=== PATIENT | female | born 1955 | race Caucasian/White ===

== ENCOUNTER 2024-01-17 15:37 | Outpatient (CLI) | payer MEDICARE, OTHER, SELFPAY ==
--- NOTE | ~2024-01-17 | CT_ITS ---
CT Scan of the Chest without Contrast: Clinical Indication: Lung cancer screening, nicotine dependence Technique: Contiguous sections were acquired throughout the chest without intravenous contrast. Dose reduction technique was used on this scan by utilizing automated exposure control and iterative recon struction technique. The dose-length product (DLP) was 269.35 mGy-cm. Findings: There is no evidence of any significant mediastinal, hilar or axillary lymphadenopathy. Aberrant righ t subclavian artery noted. There is no evidence of pleural or pericardial effusion. There is complete middle lobe atelectasis. No pulmonary nodule evident. There is scarring at the ling josue. Images through the upper abdomen reveal no abnormalities. There is advanced degenerative spondylosis throughout the thoracic spine. Impression: Lung RADS 2-S: Benign appearance. 12 month follow-up CT advised. Please note there is complete right middle lobe atelectasis. This may be chronic in nature, however s mall endobronchial or other obstructing lesion cannot be completely excluded. Correlate clinically. C omparison with any prior exams would be useful to assess for chronic atelectasis. Otherwise, bronchos copy could be considered, as indicated. Reviewed, dictated and finalized at location . Impression: Lung RADS 2-S: Benign appearance. 12 month follow-up CT advised. Please note there is complete right middle lobe atelectasis. This may be chroni c in nature, however small endobronchial or other obstructing lesion cannot be completely excluded. Correlate clinically. Comparison with any prior exams woul d be useful to assess for chronic atelectasis. Otherwise, bronchoscopy could be considered, as indicated.
== END 2024-01-17 15:38 ==
LOC: MICIMG 15:39
PROVIDERS: PCP Internal Medicine; Visit Provider Internal Medicine
DX: Z12.2 Encounter for screening for malignant neoplasm of respiratory organs (principal); Z87.891 Personal history of nicotine dependence
CPT/HCPCS: 71271

== ENCOUNTER 2024-03-12 09:53 | Outpatient (CLI) | payer MEDICARE, OTHER, SELFPAY ==
--- NOTE | ~2024-03-12 | XR_ITS ---
XR chest 2V 03/12/2024 11:23 Indication: Atelectasis Procedure: PA and lateral views of chest Comparison: No prior studies for comparison. Findings: Small pleural effusions. Bibasilar airspace disease. Heart size normal. No edema or pneumot horax. Impression: 1: Bibasilar airspace disease may represent atelectasis or pneumonia. 2: Small pleural effusions. Reviewed, dictated and finalized at location B. Impression: 1: Bibasilar airspace disease may represent atelectasis or pneumonia. 2: Small pleural effusions.
--- NOTE | 2024-03-12 13:42 | WPDSIXMINUTE ---
Six Minute Walk Procedure Procedure Performed Pulmonary Stress Test (6 min walk) Six Minute Walk Six Minute Walk: This is a 6 minute walk test. The test was performed and interpreted in accordance with the 2014 ERS/ATS task force guidelines. Of note, patient used to personal wheeled walker. Findings: The patient's resting room air oxygen saturation measured by pulse oximetry was 91% and heart rate was 98 bpm. Patient ambulated for 137 meters and oxygen saturation remained 90 to 92%. Heart rate at the end of the study was 122 bpm. The patient did not qualify for supplemental oxygen at rest or with ambulation. There are no prior studies for comparison.
--- NOTE | 2024-03-12 13:44 | WPDPFTINT ---
PFT Procedure Performed PFT Procedure Performed Spirometry with Pre/Post Bronchodilator Plethysmography (Lung Vol) Diffusing Cap (DLCO) Flow Vol Loop PFT Interpretation This is a pulmonary function test with pre and post-bronchodilator spirometry, plethysmography and diffusing capacity. The test was performed and results interpreted in accordance with the 2019 and 2005 ATS/ERS Task Force guidelines respectively using the Global Lung Function Initiative-2012 reference equations. Patient demonstrated good effort and cooperation. Reproducibility criteria were met. The quality of the pre bronchodilator spirometry maneuver was Grade A and post bronchodilator spirometry maneuver was Grade A. Findings: Spirometry: The contour the expiratory flow tracing has a sawtooth or oscillating pattern. There is decreased maximal expiratory airflow at all lung volumes with concave expiratory flow tracing. The contour the inspiratory flow tracing is normal. The pre bronchodilator FVC is 1.91 L, 67% predicted. The pre bronchodilator FEV1 is 1.08 L, 49% predicted. The pre bronchodilator FEV1: FVC ratio is 57%. The post bronchodilator FVC is 1.96 L, representing a 3% increase. The post bronchodilator FEV1 is 1.06 L, representing a 2% decrease. The post bronchodilator FEV1: FVC ratio is 54%. Plethysmography: The total lung capacity is 5.00 L, 102% predicted. The functional residual capacity is 3.47 L, 125% predicted. The residual volume is 3.10 L, 149% predicted. The residual volume: Total lung capacity ratio 62%. Diffusing capacity: The diffusing capacity unadjusted for hemoglobin and carboxyhemoglobin is 12.3, 60% predicted. The diffusing capacity adjusted for alveolar volume is 3.59, 82% predicted. Impression: The contour the expiratory flow tracing demonstrates a reproducible sawtooth or oscillating pattern. This is usually generated by air flow disturbances in the upper airway are from tremors of the respiratory muscles. This has been associated with sleep apnea, obesity, snorers without obstructive sleep apnea, upper airway injury, upper airway stenosis, tracheobronchomalacia, neuromuscular disorders with bulbar involvement, burn injury of the upper airway, diaphragmatic myoclonus, and herpes zoster of abdominal muscles. Clinical correlation is recommended. There is a severe obstructive abnormality. There is no significant improvement after inhaling a single dose of albuterol. The increase in residual volume to total lung volume ratio is consistent with hyperinflation from an obstructive abnormality. The diffusing capacity unadjusted for hemoglobin and carboxyhemoglobin is moderately decreased and normalizes when adjusted for alveolar volume. There are no prior studies for comparison
== END 2024-03-12 09:54 | disposition home or self-care (01) ==
LOC: ANHPFT 09:53
PROVIDERS: PCP Internal Medicine; Visit Provider Internal Medicine Pulmonary Disease
DX: J98.11 Atelectasis (principal); J84.89 Other specified interstitial pulmonary diseases; J90 Pleural effusion, not elsewhere classified; Z87.09 Personal history of other diseases of the respiratory system; Z87.891 Personal history of nicotine dependence
CPT/HCPCS: 71046; 94060; 94618; 94726; 94729

== ENCOUNTER 2024-07-09 08:13 | Outpatient (CLI) | payer MEDICARE, OTHER, SELFPAY ==
--- OUTSIDE RECORDS SUMMARY | 2024-06-20 04:23 | XMS_ITS | Encounter Summary ---
Author Organization [facility] Address [address] [place] [address] Phone Care Team Providers Care Correspondence Coordinator Name Role Phone Eugene Moore MD Primary Care Provider [phone] Reason for Referral * MRI/CAT/PET Scan (Routine) - Closed Specialty Diagnoses / Procedures Referred By Kenneth gómez Referred To Contact Radiology Diagnoses Meningioma (HCC) Procedures MRI Brain W WO Contrast Shania Mcmullen NP Phone: tel: fax: [address] [address] Referral ID Status Reason Start Date Expiration Date Visits Re quested Visits Authorized [id number] Closed 04/19/2023 06/17/2023 1 1 Encounter Details Date Type Department Care Team (Late st Contact Info) Description 04/14/2023 Orders Only [facility] Neurosurgery [address] [facility] Advanced [facility] 6th [place] [address] [place] [id number] Shania Mcmullen NP [address] [facility] [address] [place] [id number] Meningioma (HCC) (Primary Dx) Social History Tobacco Use Types Packs/Day Years Used Date Smoking Tobacco: Every Day Smokeless Tobacco: Never Alcohol Use Standard Drinks/Week Comments Yes 4 (1 standard drink = 0.6 oz pur e alcohol) Comments Unknown Sex and Gender Information Value Date Recorded Sex Assigned at Not on file Legal Sex Female 4:40 AM CHAIN REPAIRER Gender Identity Not on file Sexual Orientation Not on file documented as of this encounter Plan of Treatment Not on file documented as of this encounter Results * MRI Brain W WO Contrast (05/08/2023 5:28 PM CHAIN REPAIRER) Anatomical Region Laterality Modality Head and Neck N/A Magnetic Resonan ce 05/09/2023 8:40 AM CHAIN REPAIRER Impressions 05/09/2023 12:23 PM CHAIN REPAIRER Redemonstrated left frontal vertex, left frontal, and right parietal meningiomas are not significantly changed compared to prior examination when accounting for differences in technique. Dictated by: Adan Vega MD PHD The radiology attending physician has personally reviewed this study, and had reviewed and/or edited this written report and agrees with it. Electronically signed by: Tg Meyers M.D. Narrative 05/09/2023 12:23 PM CHAIN REPAIRER EXAMINATION: Magnetic resonance imaging (MRI) of the brain and brainstem without and with contrast HISTORY: 67-year-old woman history of meningioma, surveillance TECHNIQUE: Multiplanar multi-weighted MRI of the brain and brainstem was performed without and with intravenous contrast using the general brain protocol. Contrast information: 20 mL Gadoterate Meglumine COMPARISON: 08/16/2018, 08/18/2017 FINDINGS: Redemonstrated left frontal vertex lesion measuring 1.7 x 1.4 cm, left frontal lesion measuring approximately 1.5 x 1.2 cm, and right parietal lesions measuring up to 2.4 x 1.9 cm. ??Lesions are extra-axial and dural-based with contrast enhancement and associated susceptibility signal favored to represent calcifications. ??Findings are not significantly changed compared to prior examination when accounting for differences in technique. Scattered ill-defined FLAIR hyperintensities in the periventricular and subcortical white matter are nonspecific, likely on the basis of chronic small vessel ischemic change. The scalp and calvarium are normal. The superior sagittal sinus demonstrates normal venous flow. The corpus callosum is normal in shape and signal intensity. The posterior fossa is unremarkable. The pituitary and sella are normal. The brainstem and craniocervical junction are unremarkable. The susceptibility weighted sequences reveal no evidence of acute or chronic hemorrhage. The ventricles are normal in size and position without evidence of hydrocephalus. The paranasal sinuses are normal. The visualized portions of the mastoids are unremarkable. The orbits appear normal. Normal flow voids are demonstrated in the carotid arteries and basilar artery. Procedure Note Tg Meyers MD - 05/09/2023 EXAMINATION: Magnetic resonance imaging (MRI) of the brain and brainstem without and with contrast HISTORY: 67-year-old woman history of meningioma, surveillance TECHNIQUE: Multiplanar multi-weighted MRI of the brain and brainstem was performed without and with intravenous contrast using the general brain protocol. Contrast information: 20 mL Gadoterate Meglumine COMPARISON: 08/16/2018, 08/18/2017 FINDINGS: Redemonstrated left frontal vertex lesion measuring 1.7 x 1.4 cm, left frontal lesion measuring approximately 1.5 x 1.2 cm, and right parietal lesions measuring up to 2.4 x 1.9 cm. Lesions are extra-axial and dural-based with contrast enhancement and associated susceptibility signal favored to represent calcifications. Findings are not significantly changed compared to prior examination when accounting for differences in technique. Scattered ill-defined FLAIR hyperintensities in the periventricular and subcortical white matter are nonspecific, likely on the basis of chronic small vessel ischemic change. The scalp and calvarium are normal. The superior sagittal sinus demonstrates normal venous flow. The corpus callosum is normal in shape and signal intensity. The posterior fossa is unremarkable. The pituitary and sella are normal. The brainstem and craniocervical junction are unremarkable. The susceptibility weighted sequences reveal no evidence of acute or chronic hemorrhage. The ventricles are normal in size and position without evidence of hydrocephalus. The paranasal sinuses are normal. The visualized portions of the mastoids are unremarkable. The orbits appear normal. Normal flow voids are demonstrated in the carotid arteries and basilar artery. IMPRESSION: Redemonstrated left frontal vertex, left frontal, and right parietal meningiomas are not significantly changed compared to prior examination when accounting for differences in technique. Dictated by: Adan Vega MD PHD The radiology attending physician has personally reviewed this study, and had reviewed and/or edited this written report and agrees with it. Electronically signed by: Tg Meyers M.D. Shania Mcmullen NP IM MRI PROCEDURES Final Resu lt documented in this encounter Visit Diagnoses Diagnosis Meningioma (HCC)- Primary Benign neoplasm of cerebral meninges Meningioma (HCC) Benign neoplasm of cerebral meninges documented in this encounter Care Teams Correspondence Coordinator Relationship Specialty Start Date End Date Eugene Moore MD PCP - General 09/08/16 documented as of this encounter
--- OUTSIDE RECORDS SUMMARY | 2024-06-20 04:23 | XMS_ITS | Referral Summary ---
Author Organization [facility] Address [address] [place] [address] Care Team Providers Care Pulping Machine Operator Name Role Phone Eugene Moore MD Primary Care Provider [phone] Allergies No known active allergies Medications aspirin 81 mg tablet Active gabapentin ER (GRALISE) 300 mg tablet extended release 24 hr Active cetirizine (ZyrTEC) 10 mg chewable tablet Acti ve albuterol HFA (VENTOLIN HFA) 90 mcg/actuation inhaler Active amLODIPine (NORVASC) 10 mg tablet Active baclofen (LIORESAL) 20 mg tablet Active citalopram (CeleXA) 10 mg tablet Active losartan-hydroch lorothiazide (HYZAAR) 100-25 mg per tablet Active montelukast (SINGULAIR) 10 mg tablet Active nabumetone (RELAFEN) 750 mg tablet Active simvastatin (ZOCOR) 40 mg tablet Active ergocalciferol, vitamin D2, (VITAMIN D2 ORAL) Take by mouth . Active Active Problems Problem Noted Date Diagnosed Date Meningioma 01/08/2014 Social History Tobacco Use Types Packs/Day Years Used Date Smoking Tobacco: Every Day Smokeless Tobacco: Never Tobacco Cessation:Counseling Given: Yes Alcohol Use Standard Drinks/Week Comments Yes 4 (1 standard drink = 0.6 oz pur e alcohol) Comments Unknown Sex and Gender Information Value Date Recorded Sex Assigned at Not on file Legal Sex Female 4:40 AM CURTAIN HEMMER AUTOMATIC Gender Identity Not on file Sexual Orientation Not on file Last Filed Vital Signs Vital Sign Reading Time Taken Comments Blood Pressure 135/90 08/16/2018 10:43 AM CURTAIN HEMMER AUTOMATIC Pulse 78 08/16/2018 10:43 AM CURTAIN HEMMER AUTOMATIC Temperature - - Respiratory Rate - - Oxygen Saturation - - Inhaled Oxygen Concentration - - Weight 140.6 kg (310 lb) 08/16/2018 10:43 AM CURTAIN HEMMER AUTOMATIC Height 160 cm (5' 3 ) 08/16/2018 10:43 AM CURTAIN HEMMER AUTOMATIC Body Mass Index 54.91 08/16/2018 10:43 AM CURTAIN HEMMER AUTOMATIC Plan of Treatment Not on file Insurance MEDICARE [facility] [employer]2 [facility] MEDICARE [facility] Care Teams Pulping Machine Operator Relationship Specialty Start Date End Date Eugene Moore MD PCP - General 09/08/16
--- OUTSIDE RECORDS SUMMARY | 2024-06-20 04:23 | XMS_ITS | CONTINUITY OF CARE DOCUMENT ---
Author Name faina eisenberg Address Unknown Organization [facility] Address [address] [facility] [place] [address] Phone [phone] Care Team Providers Care Crankshaft Grinder Name Role Phone Antonio DIAS, Jm Jacob Unavailable [phone] MICHAEL RAND MD Unavailable [phone] MICHAEL RAND MD Unavailable [phone] INSURANCE PROVIDERS Payer name Policy type / Coverage type [employer] red constitution party ID [facility] [id number]
--- OUTSIDE RECORDS SUMMARY | 2024-06-20 04:23 | XMS_ITS | Encounter Summary ---
Author Organization [facility] Address [address] [place] [address] Phone Care Team Providers Care Personal Banker Name Role Phone Eugene Moore MD Primary Care Provider [phone] Encounter Details Date Type Department Care Team (Late st Contact Info) Description 05/12/2023 Telephone [facility] Neurosurgery [address] [facility] Advanced [facility] 6th [place] [address] [place] [phone] Shania Mcmullne NP [address] [address] Social History Tobacco Use Types Packs/Day Years Used Date Smoking Tobacco: Every Day Smokeless Tobacco: Never Alcohol Use Standard Drinks/Week Comments Yes 4 (1 standard drink = 0.6 oz pur e alcohol) Comments Unknown Sex and Gender Information Value Date Recorded Sex Assigned at Not on file Legal Sex Female 4:40 AM MANAGER APPLE Gender Identity Not on file Sexual Orientation Not on file documented as of this encounter Miscellaneous Notes * Telephone Encounter - Shania Mcmullen NP - 05/12/2023 9:06 AM CST Pt needs an MRI and apt in 3 years Thanks E GER APPLE documented in this encounter Plan of Treatment Not on file documented as of this encounter Visit Diagnoses Not on filedocumented in this encounter Care Teams Personal Banker Relationship Specialty Start Date End Date Eugene Moore MD PCP - General 09/08/16 documented as of this encounter
--- OUTSIDE RECORDS SUMMARY | 2024-06-20 04:23 | XMS_ITS | Encounter Summary ---
Author Organization [facility] Address [address] [place] [address] Phone Care Team Providers Care International Tax Manager Name Role Phone Eugene Moore MD Primary Care Provider [phone] Encounter Details Date Type Department Care Team (Late st Contact Info) Description 04/13/2023 Telephone [facility] Scheduling [address] [place] [address] Marce Khoury Social History Tobacco Use Types Packs/Day Years Used Date Smoking Tobacco: Every Day Smokeless Tobacco: Never Alcohol Use Standard Drinks/Week Comments Yes 4 (1 standard drink = 0.6 oz pur e alcohol) Comments Unknown Sex and Gender Information Value Date Recorded Sex Assigned at Not on file Legal Sex Female 4:40 AM HI RANGER OPERATOR Gender Identity Not on file Sexual Orientation Not on file documented as of this encounter Miscellaneous Notes * Telephone Encounter - Taryn Patel - 04/19/2023 11:56 AM CST Reason for visit: Return Pt phone call Date: 05/12/2023 Time: 08:45am Location: [facility] Provider WATER QUALITY MANAGER - Shania Mcmullen Routed: Directly to WATER QUALITY MANAGER RANGER OPERATOR * Telephone Encounter - Shania Mcmullen NP - 04/14/2023 10:27 AM CDT MRI in Thanks E * Telephone Encounter - Taryn Patel - 04/13/2023 2:32 PM CDT Patient would like visit, could an imaging order be put in for patient please? documented in this encounter Plan of Treatment Not on file documented as of this encounter Visit Diagnoses Not on filedocumented in this encounter Care Teams International Tax Manager Relationship Specialty Start Date End Date Eugene Moore MD PCP - General 09/08/16 documented as of this encounter
--- OUTSIDE RECORDS SUMMARY | 2024-06-20 04:23 | XMS_ITS | Encounter Summary ---
Author Organization [facility] Address [address] [place] [address] Phone Care Team Providers Care Pipe Wrapping Machine Operator Name Role Phone Eugene Moore MD Primary Care Provider [phone] Encounter Details Date Type Department Care Team (Late st Contact Info) Description 05/12/2023 8:45 AM MIDDLE SCHOOL HUMANITIES TEACHER Telemedicine [facility] Neurosurgery [address] [facility] Advanced [facility] 6th [place] [address] [place] [address] Shania Mcmullen NP [address] [address] Meningioma (HCC) (Primary Dx) Social History Tobacco Use Types Packs/Day Years Used Date Smoking Tobacco: Every Day Smokeless Tobacco: Never Alcohol Use Standard Drinks/Week Comments Yes 4 (1 standard drink = 0.6 oz pur e alcohol) Comments Unknown Sex and Gender Information Value Date Recorded Sex Assigned at Not on file Legal Sex Female 4:40 AM MIDDLE SCHOOL HUMANITIES TEACHER Gender Identity Not on file Sexual Orientation Not on file documented as of this encounter Progress Notes * Shania Mcmullen NP - 05/12/2023 8:45 AM CST RETURN VISIT Subjective HISTORY OF PRESENT ILLNESS Mikki Dalton is a 67 y.o. female with a history of meningiomas for which we have been monitoring her with interval MRI scan since December of 2013. Her appointment was done via telephone. She is overall doing well. No new headaches, no visual issues. She is having knee issues and some back pain. Uses walker to walk due to knee issues. Trying to retire in Jun 2023. Working on weight loss. No bowel or bladder issues. VITAL SIGNS There were no vitals taken for this visit. ALLERGIES She has No Known Allergies. MEDICATIONS Current Outpatient Medications: albuterol HFA (VENTOLIN HFA) 90 mcg/actuation inhaler, , Disp: , Rfl: amLODIPine (NORVASC) 10 mg tablet, , Disp: , Rfl: aspirin 81 mg tablet, , Disp: , Rfl: baclofen (LIORESAL) 20 mg tablet, , Disp: , Rfl: cetirizine (ZyrTEC) 10 mg chewable tablet, , Disp: , Rfl: citalopram (CeleXA) 10 mg tablet, , Disp: , Rfl: ergocalciferol, vitamin D2, (VITAMIN D2 ORAL), Take by mouth ., Disp: , Rfl: gabapentin ER (GRALISE) 300 mg tablet extended release 24 hr, , Disp: , Rfl: losartan-hydrochlorothiazide (HYZAAR) 100-25 mg per tablet, , Disp: , Rfl: montelukast (SINGULAIR) 10 mg tablet, , Disp: , Rfl: nabumetone (RELAFEN) 750 mg tablet, , Disp: , Rfl: simvastatin (ZOCOR) 40 mg tablet, , Disp: , Rfl: Objective REVIEW OF IMAGING EXAMINATION: Magnetic resonance imaging (MRI) of the [...] it. Electronically signed by: Tg Meyers M.D. Assessment/Plan PLAN Mikki Dalton is doing well. Her MRI is stable. I would like to see her back in 3 years with another MRI or sooner if any new issues or concerns. Shania Mcmullen NP This was a telemedicine visit with Mikki Dalton alone which took place via telephone . During thevisit, I was located at home and the patient was located home in the [facility]. The patient visitstarted at 09:00 and ended at 09:06. My total encounter time on 05/12/2023 was 15 minutes which was spent in the activities documented in the note. This includes time spent prior to the visit and after the visit in direct care of the patient. This time does not include time spent in any separately reportable services. The patient: has been informed that the visit may not be secure and acknowledged the information. After being given an opportunity to ask questions about and discuss this type of visit, they verballyconsented to proceeding with the telephone/video visit and understand that this service replaces anoffice visit. Cosigned by Ludwin Mclean MD at 05/12/2023 4:38 PM MIDDLE SCHOOL HUMANITIES TEACHER LE SCHOOL HUMANITIES TEACHER LE SCHOOL HUMANITIES TEACHER documented in this encounter Plan of Treatment Not on file documented as of this encounter Visit Diagnoses Diagnosis Meningioma (HCC)- Primary Benign neoplasm of cerebral meninges documented in this encounter Care Teams Pipe Wrapping Machine Operator Relationship Specialty Start Date End Date Eugene Moore MD PCP - General 09/08/16 documented as of this encounter
--- OUTSIDE RECORDS SUMMARY | 2024-06-20 04:23 | XMS_ITS | Data Portability ---
Author Organization [facility] [employer], Main Office Address [address] [place] [address] Assessment Encounter Date Assessment Date Assessment LastModified by Organization Details LastModified Time 01/16/2023 01/16/2023 Again told her to go as see the brain specialist as well so she can get her MRI and follow the meningioma. Otherwise blood work assessment plan and diagnosis assessment plan been discussed follow-up with me in 4 months continue current therapy [email or web address] Not available 01/17/2023 20:26:09 05/15/2023 05/15/2023 Will continue current therapy will follow-up in 4 months. Mammogram ordered [email or web address] Not available 05/15/2023 23:12:53 Plan of Treatment Reminders Order Date Submit Date Provider Last Modified By Organization Details Last Modified Time Details Appointments None recorded. Lab vitamin D, 25-hydrox y, total, serum 023 023 [email or web address] [facility] (Lab), [address] [place], [address], 4 11:01:55 HbA1c (hemoglob in A1c), blood 023 023 [email or web address] [facility] (Lab), [address] [place], [address], 4 11:01:55 CMP, serum or plasma 023 023 [email or web address] [facility] (Lab), [address] [place], [address], 3 18:15:52 CBC w/ auto diff 023 023 [email or web address] [facility] (Lab), [address] [place], [address], 3 18:02:51 lipid panel, serum 023 023 [email or web address] 25 [facility] (Lab), [address] [place], [address], 4 11:01:55 Referral None recorded. Procedures None recorded. Surgeries None recorded. Imaging None recorded. Medication Orders None recorded. Patient TargetsNo targets recorded. Patient InstructionsNo instructions recorded. Reason for Referral None Reported. Results Created Date Observation Date Name Description Value Unit Range Abnormal Flag Note LastModifiedBy Organization Detail LastModifiedTime 09/24/19 22 09/23/2021 COMPR EHENS CHRISTINA METAB OLIC PANEL sodium 136 mmol/ L 137-14 5 low Not Available [facility] (Lab) [address] [place], [address], 09/23/2021 14:37:51 09/24/19 22 09/23/2021 COMPR EHENS CHRISTINA METAB OLIC PANEL potassium 4.5 mmol/ L 3.5-5. 1 Not Available [facility] (Lab) [address] [place], [address], 09/23/2021 14:37:51 09/24/19 22 09/23/2021 COMPR EHENS CHRISTINA METAB OLIC PANEL chloride 102 mmol/ L 98-107 Not Available [facility] (Lab) [address] [place], [address], 09/23/2021 14:37:51 09/24/19 22 09/23/2021 COMPR EHENS CHRISTINA METAB OLIC PANEL carbon dioxide 25 mmol/ L 22-30 Not Available [facility] (Lab) [address] [place], [address], 09/23/2021 14:37:51 09/24/19 22 09/23/2021 COMPR EHENS CHRISTINA METAB OLIC PANEL agap 13.5 mmol/ L 14-22 low Not Available [facility] (Lab) [address] [place], [address], 09/23/2021 14:37:51 09/24/19 22 09/23/2021 COMPR EHENS CHRISTINA METAB OLIC PANEL glucose 126 mg/dL 70-99 high Not Available [facility] (Lab) [address] [place], [address], 09/23/2021 14:37:51 09/24/19 22 09/23/2021 COMPR EHENS CHRISTINA METAB OLIC PANEL BUN 15 mg/dL 8-19 Not Available [facility] (Lab) [address] [place], [address], 09/23/2021 14:37:51 09/24/19 22 09/23/2021 COMPR EHENS CHRISTINA METAB OLIC PANEL creatinine 0.57 mg/dL 0.66-1 .25 low Not Available [facility] (Lab) [address] [place], [address], 09/23/2021 14:37:51 09/24/19 22 09/23/2021 COMPR EHENS CHRISTINA METAB OLIC PANEL GFR >60 Refer ence Range : [place] ge GFR Healt hy Adult : >60 mL/mi n/1.7 3 m2 Chron ic Kidne y Disea se: 15-60 mL/mi n/1.7 3 m2 Kidne y Failu re: <15/m L/min /1.73 m2 www.n iddk. nih.g ov The MDRD study equat ion has not been valid ated in child jameel <18 years of age; pregn ant women ; the elder ly >85 years of age; or in some racia l or ethni c subgr oups, such as Hispa nics. Outsi de the valid ated bonita eters , estim ated GFR is less accur ate, requi ring clini donald judgm ent on a case- by-ca se basis . Clini donald inter preta tion for other races and ages must be made by the clini oscar. The MDRD study equat ion has not been valid ated for the evalu ation of serum creat inine relat ed to nutri caroline l statu s or medic ation usage . For perso ns <18 years of age, a pedia tric GFR calcu lator is avail able on the [facility] websi te: https :[email or web address] [email or web address] [email or web address] rg/pr ofess ional s/kdo qi/gf r_cal culat or Not Available [facility] (Lab) [address] [place], [address], 09/23/2021 14:37:51 09/24/19 22 09/23/2021 COMPR EHENS CHRISTINA METAB OLIC PANEL alkaline phosphatase 86 U/L 38-126 Not Available [facility] (Lab) [address] [place], [address], 09/23/2021 14:37:51 09/24/19 22 09/23/2021 COMPR EHENS CHRISTINA METAB OLIC PANEL alanine aminotransfe rase 14 U/L 0-35 Not Available [facility] (Lab) [address] [place], [address], 09/23/2021 14:37:51 09/24/19 22 09/23/2021 COMPR EHENS CHRISTINA METAB OLIC PANEL aspartate aminotransfe rase 18 U/L 15-37 Not Available [facility] (Lab) [address] [place], [address], 09/23/2021 14:37:51 09/24/19 22 09/23/2021 COMPR EHENS CHRISTINA METAB OLIC PANEL bilirubin, total 0.50 mg/dL 0.20-1 .30 Not Available [facility] (Lab) [address] [place], [address], 09/23/2021 14:37:51 09/24/19 22 09/23/2021 COMPR EHENS CHRISTINA METAB OLIC PANEL calcium 10.0 mg/dL 8.4-10 .2 Not Available [facility] (Lab) [address] [place], [address], 09/23/2021 14:37:51 09/24/19 22 09/23/2021 COMPR EHENS CHRISTINA METAB OLIC PANEL total protein 7.8 g/dL 6.3-8. 2 Not Available [facility] (Lab) [address] [place], [address], 09/23/2021 14:37:51 09/24/19 22 09/23/2021 COMPR EHENS CHRISTINA METAB OLIC PANEL albumin 4.4 g/dL 3.0-4. 4 Not Available [facility] (Lab) [address] [place], [address], 09/23/2021 14:37:51 09/24/19 22 09/23/2021 COMPR EHENS CHRISTINA METAB OLIC PANEL globulin 3.4 g/dL 2.6-4. 2 Not Available [facility] (Lab) [address] [place], [address], 09/23/2021 14:37:51 09/24/19 22 09/23/2021 COMPR EHENS CHRISTINA METAB OLIC PANEL A/G ratio 1.3 ratio 1.0-2. 0 Not Available [facility] (Lab) [address] [place], [address], 09/23/2021 14:37:51 09/24/19 22 09/23/2021 LIPID PANEL cholesterol 184 mg/dL 140-19 9 NIH CELESTINA NSUS RECOM MENDA TION FOR MAGO STERO L: ADULT CHILD LOW RISK: <200 <170 BORDE RLINE : <200- 239 ----- HIGH RISK: >240 >200 Not Available [facility] (Lab) [address] [place], [address], 09/23/2021 14:37:44 09/24/19 22 09/23/2021 LIPID PANEL triglyceride s 148 mg/dL 0-150 NIH CELESTINA NSUS REPOR T RECOM MENDA TION FOR TRIGL YCERI JOSE: ADULT CHILD LOW RISK: <150 ----- BODER LINE: 150-1 99 ----- HIGH RISK: >200 ----- Not Available [facility] (Lab) [address] [place], [address], 09/23/2021 14:37:44 09/24/19 22 09/23/2021 LIPID PANEL HDL cholesterol 63 mg/dL 40- Not Available [facility] (Lab) [address] [place], [address], 09/23/2021 14:37:44 09/24/19 22 09/23/2021 LIPID PANEL LDL cholesterol, calculated 91 mg/dL 0-130 NIH CELESTINA NSUS REPOR T RECOM MENDA TIONS FOR LDL: ADULT CHILD LOW RISK <130 <110 (OPTI MAL LDL) <100 ----- BORDE RLINE : 130-1 59 ----- HIGH RISK: >160 >130 A TRIGL YCERI DE RESUL T >400 INVAL IDATE S THE CALCU LATIO N FOR LDL FRACT IONAT ION - THE LDL RESUL T WILL NOT BE REPOR ADEN. Not Available [facility] (Lab) [address] [place], [address], 09/23/2021 14:37:44 09/24/19 22 09/23/2021 HEMOG LOBIN A1C HA1C 7.8 % 4.0-6. 0 high Diabe kecia Scree elli Crite bonnie: <5.7% Consi stent with absen ce of diabe kecia 5.7-6 .4% Consi stent with incre ased risk for diabe kecia (pred iabet es) >OR=6 .5% Consi stent with diabe kecia REFER ENCE: Diabe kecia Care 2016, 39(Raya ppl.1 ):s13 -s22 Not Available [facility] (Lab) [address] [place], [address], 09/23/2021 14:36:33 01/17/2001/16/2023 CBC/C OMPLE TE BLD COUNT W/DIF F white blood cells 5.2 x10'3 /uL 4.2-10 .8 Not Available [facility] (Lab) [address] [place], [address], 01/16/2023 18:01:15 01/17/20 23 01/16/2023 CBC/C OMPLE TE BLD COUNT W/DIF F red blood cells 4.43 x10'6 /uL 3.80-5 .20 Not Available [facility] (Lab) [address] [place], [address], 01/16/2023 18:01:15 01/17/20 23 01/16/2023 CBC/C OMPLE TE BLD COUNT W/DIF F hemoglobin 14.2 g/dL 12.0-1 5.6 Not Available [facility] (Lab) [address] [place], [address], 01/16/2023 18:01:15 01/17/2001/16/2023 CBC/C OMPLE TE BLD COUNT W/DIF F hematocrit 43.2 % 35.7-4 5.7 Not Available [facility] (Lab) [address] [place], [address], 01/16/2023 18:01:15 01/17/2001/16/2023 CBC/C OMPLE TE BLD COUNT W/DIF F mean red cell volume 97.5 fL 82.0-9 9.0 Not Available [facility] (Lab) [address] [place], [address], 01/16/2023 18:01:15 01/17/20 23 01/16/2023 CBC/C OMPLE TE BLD COUNT W/DIF F mean red cell hemoglobin 32.1 pg 27.0-3 3.0 Not Available [facility] (Lab) [address] [place], [address], 01/16/2023 18:01:15 01/17/20 23 01/16/2023 CBC/C OMPLE TE BLD COUNT W/DIF F mean RBC HGB concentratio n 32.9 g/dL 31.0-3 6.0 Not Available [facility] (Lab) [address] [place], [address], 01/16/2023 18:01:15 01/17/20 23 01/16/2023 CBC/C OMPLE TE BLD COUNT W/DIF F red cell distribution width 13.4 % 11.8-1 5.5 Not Available [facility] (Lab) [address] [place], [address], 01/16/2023 18:01:15 01/17/20 23 01/16/2023 CBC/C OMPLE TE BLD COUNT W/DIF F platelets 297 x10'3 /uL 150-40 0 Not Available [facility] (Lab) [address] [place], [address], 01/16/2023 18:01:15 01/17/20 23 01/16/2023 CBC/C OMPLE TE BLD COUNT W/DIF F mean platelet volume 10.5 fL 9.0-12 .4 Not Available [facility] (Lab) [address] [place], [address], 01/16/2023 18:01:15 01/17/20 23 01/16/2023 CBC/C OMPLE TE BLD COUNT W/DIF F neutrophils 56.0 % 39.0-7 2.0 Not Available [facility] (Lab) [address] [place], [address], 01/16/2023 18:01:15 01/17/20 23 01/16/2023 CBC/C OMPLE TE BLD COUNT W/DIF F lymphocytes 31.9 % 16.0-4 7.0 Not Available [facility] (Lab) [address] [place], [address], 01/16/2023 18:01:15 01/17/20 23 01/16/2023 CBC/C OMPLE TE BLD COUNT W/DIF F monocytes 7.3 % 5.0-12 .0 Not Available [facility] (Lab) [address] [place], [address], 01/16/2023 18:01:15 01/17/20 23 01/16/2023 CBC/C OMPLE TE BLD COUNT W/DIF F eosinophils 3.3 % 1.0-7. 0 Not Available [facility] (Lab) [address] [place], [address], 01/16/2023 18:01:15 01/17/2001/16/2023 CBC/C OMPLE TE BLD COUNT W/DIF F basophils 1.3 % 0.0-2. 0 Not Available [facility] (Lab) [address] [place], [address], 01/16/2023 18:01:15 01/17/20 23 01/16/2023 CBC/C OMPLE TE BLD COUNT W/DIF F immature granulocytes 0.2 % 0.00-0 .50 Not Available [facility] (Lab) [address] [place], [address], 01/16/2023 18:01:15 01/17/20 23 01/16/2023 CBC/C OMPLE TE BLD COUNT W/DIF F neutrophils, absolute count 2.93 x10'3 /uL 1.5-8. 0 Not Available [facility] (Lab) [address] [place], [address], 01/16/2023 18:01:15 01/17/20 23 01/16/2023 CBC/C OMPLE TE BLD COUNT W/DIF F lymphocytes, absolute count 1.67 x10'3 /uL 1.07-3 .43 Not Available [facility] (Lab) [address] [place], [address], 01/16/2023 18:01:15 01/17/20 23 01/16/2023 CBC/C OMPLE TE BLD COUNT W/DIF F monocytes, absolute count 0.38 x10'3 /uL 0.29-0 .99 Not Available [facility] (Lab) [address] [place], [address], 01/16/2023 18:01:15 01/17/2001/16/2023 CBC/C OMPLE TE BLD COUNT W/DIF F eosinophils, absolute count 0.17 x10'3 /uL 0.02-0 .53 Not Available [facility] (Lab) [address] [place], [address], 01/16/2023 18:01:15 01/17/20 23 01/16/2023 CBC/C OMPLE TE BLD COUNT W/DIF F basophils, absolute count 0.07 x10'3 /uL 0.01-0 .08 Not Available [facility] (Lab) [address] [place], [address], 01/16/2023 18:01:15 01/17/2001/16/2023 CBC/C OMPLE TE BLD COUNT W/DIF F immature granulocytes ,absolute 0.01 x10'3 /uL 0.00-0 .05 Not Available [facility] (Lab) [address] [place], [address], 01/16/2023 18:01:15 01/17/2001/16/2023 CBC/C OMPLE TE BLD COUNT W/DIF F nucleated red blood cells 0.0 % -0 Not Available [facility] (Lab) [address] [place], [address], 01/16/2023 18:01:15 01/17/20 23 01/16/2023 CBC/C OMPLE TE BLD COUNT W/DIF F NRBC# 0.00 x10'3 /uL Not Available [facility] (Lab) [address] [place], [address], 01/16/2023 18:01:15 01/17/20 23 01/16/2023 COMPR EHENS CHRISTINA METAB OLIC PANEL sodium 138 mmol/ L 137-14 5 Not Available [facility] (Lab) [address] [place], [address], 01/16/2023 18:15:52 01/17/20 23 01/16/2023 COMPR EHENS CHRISTINA METAB OLIC PANEL potassium 4.2 mmol/ L 3.5-5. 1 Not Available [facility] (Lab) [address] [place], [address], 01/16/2023 18:15:52 01/17/20 23 01/16/2023 COMPR EHENS CHRISTINA METAB OLIC PANEL chloride 101 mmol/ L 98-107 Not Available [facility] (Lab) [address] [place], [address], 01/16/2023 18:15:52 01/17/20 23 01/16/2023 COMPR EHENS CHRISTINA METAB OLIC PANEL carbon dioxide 27 mmol/ L 22-30 Not Available [facility] (Lab) [address] [place], [address], 01/16/2023 18:15:52 01/17/20 23 01/16/2023 COMPR EHENS CHRISTINA METAB OLIC PANEL anion gap 14.2 mmol/ L 14-22 Not Available [facility] (Lab) [address] [place], [address], 01/16/2023 18:15:52 01/17/20 23 01/16/2023 COMPR EHENS CHRISTINA METAB OLIC PANEL glucose 109 mg/dL 70-99 high Not Available [facility] (Lab) [address] [place], [address], 01/16/2023 18:15:52 01/17/20 23 01/16/2023 COMPR EHENS CHRISTINA METAB OLIC PANEL BUN 15 mg/dL 8-19 Not Available [facility] (Lab) [address] [place], [address], 01/16/2023 18:15:52 01/17/2001/16/2023 COMPR EHENS CHRISTINA METAB OLIC PANEL creatinine 0.57 mg/dL 0.66-1 .25 low Not Available [facility] (Lab) [address] [place], [address], 01/16/2023 18:15:52 01/17/20 23 01/16/2023 COMPR EHENS CHRISTINA METAB OLIC PANEL GFR >60 Refer ence Range : [place] ge GFR Healt hy Adult : >60 mL/mi n/1.7 3 m2 Chron ic Kidne y Disea se: 15-60 mL/mi n/1.7 3 m2 Kidne y Failu re: <15/m L/min /1.73 m2 www.n iddk. nih.g ov The MDRD study equat ion has not been valid ated in child jameel <18 years of age; pregn ant women ; the elder ly >85 years of age; or in some racia l or ethni c subgr oups, such as [facility] nics. Outsi de the valid ated bonita eters , estim ated GFR is less accur ate, requi ring clini donald judgm ent on a case- by-ca se basis . Clini donald inter preta tion for other races and ages must be made by the clini oscar. The MDRD study equat ion has not been valid ated for the evalu ation of serum creat inine relat ed to nutri caroline l statu s or medic ation usage . For perso ns <18 years of age, a pedia tric GFR calcu lator is avail able on the [facility] websi te: https :[email or web address] wsheila [email or web address] rg/pr ofess ional s/kdo qi/gf r_cal culat or Not Available [facility] (Lab) [address] [place], [address], 01/16/2023 18:15:52 01/17/20 23 01/16/2023 COMPR EHENS CHRISTINA METAB OLIC PANEL alkaline phosphatase 101 U/L 38-126 Not Available [facility] (Lab) [address] [place], [address], 01/16/2023 18:15:52 01/17/20 23 01/16/2023 COMPR EHENS CHRISTINA METAB OLIC PANEL alanine aminotransfe rase 23 U/L 0-35 Not Available [facility] (Lab) [address] [place], [address], 01/16/2023 18:15:52 01/17/20 23 01/16/2023 COMPR EHENS CHRISTINA METAB OLIC PANEL aspartate aminotransfe rase 24 U/L 15-37 Not Available [facility] (Lab) [address] [place], [address], 01/16/2023 18:15:52 01/17/20 23 01/16/2023 COMPR EHENS CHRISTINA METAB OLIC PANEL bilirubin, total 0.50 mg/dL 0.20-1 .30 Not Available [facility] (Lab) [address] [place], [address], 01/16/2023 18:15:52 01/17/20 23 01/16/2023 COMPR EHENS CHRISTINA METAB OLIC PANEL calcium 9.8 mg/dL 8.4-10 .2 Not Available [facility] (Lab) [address] [place], [address], 01/16/2023 18:15:52 01/17/20 23 01/16/2023 COMPR EHENS CHRISTINA METAB OLIC PANEL total protein 8.5 g/dL 6.3-8. 2 high Not Available [facility] (Lab) [address] [place], [address], 01/16/2023 18:15:52 01/17/20 23 01/16/2023 COMPR EHENS CHRISTINA METAB OLIC PANEL albumin 4.9 g/dL 3.0-4. 4 high Not Available [facility] (Lab) [address] [place], [address], 01/16/2023 18:15:52 01/17/20 23 01/16/2023 COMPR EHENS CHRISTINA METAB OLIC PANEL globulin 3.6 g/dL 2.6-4. 2 Not Available [facility] (Lab) [address] [place], [address], 01/16/2023 18:15:52 01/17/20 23 01/16/2023 COMPR EHENS CHRISTINA METAB OLIC PANEL A/G ratio 1.4 ratio 1.0-2. 0 Not Available [facility] (Lab) [address] [place], [address], 01/16/2023 18:15:52 01/17/2001/16/2023 VITAM IN D 25-HY DROXY vd25oh 39.1 NG/mL 30-100 Vitam in D Statu s: Defic ient: <20 ng/mL Insuf ficie nt: 20-29 ng/mL Suffi cient : 30-10 0 ng/mL Not Available [facility] (Lab) [address] [place], [address], 01/16/2023 18:59:24 01/17/2001/16/2023 HEMOG LOBIN A1C HA1C 6.9 % 4.0-6. 0 high Diabe kecia Scree elli Crite bonnie: <5.7% Consi stent with absen ce of diabe kecia 5.7-6 .4% Consi stent with incre ased risk for diabe kecia (pred iabet es) >OR=6 .5% Consi stent with diabe kecia REFER ENCE: Diabe kecia Care 2016, 39(Raya ppl.1 ):s13 -s22 Not Available [facility] ([facility]) [address] [place], [address], 01/16/2023 20:04:48 10/19/19 22 10/18/2021 DEXA, axial skele ton [facility] [address] [place] [address] [phone] Patien t Name: MELODIE DALTON Access ion #: [id number] Sex: F : 1955 8 Locati on: RAD Attend ing Physic jerrell: STEPHANIE MOORE Orderi ng Physic jerrell: STEPHANIE MOORE Exam Date: 10/19/19 10:32 AM Exam Name: XR DEXA-H IPS PELVIS SPINE Admitt ing Diagno sis(es ): RADIOL OGY REPORT - FINAL EXAM: XR DEXA-H IPS PELVIS SPINE HISTOR Y: MENOPA USAL 66-yea r-old female with osteop orosis screen ing. COMPAR YUSEF: DEXA scan dated 2014. TECHNI QUE: Dual energy x-ray of absorp tion examin ation of the bilate ral hips and lumbar spine in AP projec tion was perfor med. FINDIN GS: Lumbar Spine (L1-L4 ): The mean bone minera l densit y is 1.966 g/cm2 hydrox yapati te, correl ating with a T-scor e of 6.2. BMD of the lumbar spine is increa sed 9.3% since the prior study. Bilate ral hips: The mean bone minera l densit y is 1.317 g/cm2 calciu m Page 1 [facility] 2 [facility] t Name: MELODIE DALTON Access ion #: [id number] Sex: F : 1955 7 Exam Date: 10/19/19 10:32 AM Exam Name: XR DEXA-H IPS PELVIS SPINE Admitt ing Diagno sis(es ): hydrox yapati te, correl ating with a T-scor e of 2.5. BMD of the hips is decrea sed 10% since the prior study. IMPRES SINGH: 1. The patien t's lumbar spine T-scor e is consis tent with normal bone minera l densit y. It should be noted that the BMD of the lumbar spine is artifa ctuall y increa sed by degene rative disc diseas e. 2. The patien t's bilate ral hip T-scor e is consis tent with normal bone minera l densit y. Accord ing to the [employer]i zation , T-scor e values greate r than -1.0 are normal , values betwee n -1.0 and -2.5 are catego rized as osteop enia, T-scor e of -2.5 or more are catego rized as osteop orosis . Create d and electr onical ly signed by: Devin benoit MD Signed Date: 10/19/19 11:32 AM (CT) Dictat ed by: Devin benoit MD (CT) (CT) Page 2 of 2 [id number] [facility] (Imaging) [address] [place], [address], 08/10/2022 05:05:08 10/19/19 22 10/18/2021 scree elli breas t irina, bilat [facility] [address] [place] [address] Patining t Name: MELODIE DALTON Access ion #: [id number] Sex: F : 1955 7 Locati on: RAD Attend ing Physic jerrell: STEPHANIE MOORE Orderi ng Physic jerrell: STEPHANIE MOORE Exam Date: 10/19/19 10:32 AM Exam Name: MG SCRN BREAST IRINA BILAT Admitt ing Diagno sis(es ): MAMMOG CHUCK REPORT - FINAL EXAM: MG GENTILE BREAST IRINA BILAT HISTOR Y: SCREEN ING MAMMOG CRISTY 66-yea r-old female with no curren t breast compla ints. The jacqui gómez has a family histor y of breast cancer in her mother at age 6060 years old. COMPAR YUSEF: 2019, 2017 TECHNI QUE: Bilate ral CC and MLO views of the breast s were perfor med. Digita l Mammog chuck images were obtain ed. CAD (compu ter assist ed detect ion) was utiliz ed. 3D Digita l breast tomosy nthesi s was perfor med and used in the interp retati on of images . FINDIN GS: The breast s are almost entire ly fatty. Page 1 of 2 [facility] Jacqui gómez Name: MELODIE DALTON Access ion #: [id number] Sex: F : 1955 7 Exam Date: 10/19/19 10:32 AM Exam Name: MG GENTILE BREAST IRINA BILAT Admitt ing Diagno sis(es ): No masses , asymme tries, suspic ious calcif icatio ns, or dinorah ectura l distor tion are seen. IMPRES SINGH: BIRADS 1: Assess ment comple te. Negati ve. Recomm end annual screen ing mammog chuck. Accord ing to the [employer], yearly mammog neha are recomm ended starti ng at age 40 and contin uing as long as the woman is in good health . Clinic al Breast Exam should be part of the period health exam-a bout every 3 years for women in their 20s and 30s and every year for women 40 and over. Breast self-e xam is an option for women in their 20s. Any breast change noted on the breast self-e xam she would be report ed prompt ly to the [facility]. A negati ve mammog chuck report should not discou rage follow -up or biopsy of a clinic ally signif icant findin g and/or abnorm ality. Dense breast tissue may obscur e small neopla sms. This jacqui gómez has been entere d into a mammog chuck remind er system with a target date for her next mammog cristy. Create d and electr onical ly signed by: Devin benoit MD Signed Date: 10/19/19 11:33 AM (CT) Dictat ed by: Devin benoit MD (CT) (CT) Page 2 of 2 [id number] [facility] (Imaging) [address] [place], [address], 08/10/2022 05:05:08 06/09/20 23 06/09/2023 chad mendez t irina, bilat [facility] [address] [place] [address] Jacqui gómez Name: MELODIE DALTON Access ion #: [id number] Sex: F : 1955 6 Dictat ed By: Michelle Small Attend ing Physic jerrell: STEPHANIE MOORE Orderi ng Physic jerrell: STEPHANIE MOORE Exam Date: 2022 12:36 PM Exam Name: MG SCRN BREAST IRINA BILAT Admitt ing Diagno sis(es ): SCREEN ING MAMMOG CRISTY WITH TOMOSY NTHESI S: REASON FOR EXAM: screen ing mammog cristy COMPAR YUSEF: 10/19/19; 2019 TECHNI QUE: Bilate ral CC and MLO views obtain ed. Images were obtain ed using a Digita l [employer] nthesi s Unit. Standa rd 2D and 3D Tomosy nthesi s images were review ed. FINDIN GS: BREAST COMPOS ITION: The bilate ral breast s are almost entire ly fatty. In the right breast , no asymme trical parenc hymal patter n, dinorah ectura l distor tion, pleomo rphic microc alcifi cation s or masses . In the left breast , no asymme trical parenc hymal patter n, dinorah ectura l distor tion, pleomo rphic microc alcifi cation s or masses . IMPRES SINGH: No findin gs of malign rosalina. Recomm end annual mammog cristy. BIRADS : 2 - Benign Electr onical ly Signed by: Michelle Small at 2022 15:12: 39 PM Page 1 [email or web address] [facility] (Imaging) [address] [facility] [facility], [place], [address], 06/16/2023 14:53:31 01/18/20 24 01/17/2024 LDCT, chest , for lung cance r chad calloway No observ ation record ed. [email or web address] [facility] [address] [address], [place], [address], 02/22/2024 15:47:30 Result Notes None recorded. Problems Name Problem SNOMED Code Status Onset Date Resolution Date Notes Provider Name and Address Organization Details Recorded Time Mammograp hy abnormal [id number] Completed Not Available [facility] 3 04:54:02 Asthma 230212856 Active Not Available [facility] 4 05:46:31 Sciatica 17254518 Completed Not Available [facility] 3 04:54:02 Morbid obesity 808882988 Active 2021 Not Available [facility] 4 05:46:31 Pure hyperchol esterolem ia 379145161 Active Not Available [facility] 4 05:46:31 Low back pain 029101630 Active Not Available [facility] 4 05:46:31 Intracran ial meningiom a 731281150 Active Not Available [facility] 4 05:46:31 Type 2 diabetes mellitus without complicat ion 917217692 Active Not Available [facility] 4 05:46:31 Vitamin D deficienc y 79953623 Active Not Available [facility] 4 05:46:31 Diverticu lar disease of colon 286797973 Active Not Available [facility] 4 05:46:31 Dizziness 124382893 Completed Not Available [facility] 3 04:54:03 Magnetic resonance imaging of brain abnormal 862099832 Active Not Available [facility] 4 05:46:31 Pain of right knee joint 36455475275 4100 Active 2021 Not Available [facility] 4 05:46:31 Anxiety 57103094 Active 2018 Not Available [facility] 4 05:46:31 Upper respirato ry infection 75581729 Completed Not Available [facility] 3 04:54:03 Essential hypertens ion 29558674 Active 2018 Not Available [facility] 4 05:46:31 Rhinitis 40054468 Completed Not Available [facility] 3 04:54:03 COVID-19 948581828 Active 2021 Not Available [facility] 4 05:46:31 Problem Notes None recorded. Procedures Surgical History Date Name Laterality Status Provider Name and Address Organization Details Recorded Time 08/26/19 15 Most Recent Bone Density completed Not Available [facility] 08/10/2022 04:45:07 11/15/19 08 Date of Last Colonoscopy completed Not Available [facility] 08/10/2022 04:45:07 Jaw arthroscopy/kirstin josemanuel completed Not Available [facility] 08/10/2022 04:45:13 removal of sebaceous cyst completed Not Available [facility] 08/10/2022 04:45:13 Imaging Results Imaging Date Name Status LastModified by Organiz ation Details LastModified Time 10/18/2021 DEXA, axial skeleton completed [id number] [facility] (Imaging) [address] [place], [address], 08/10/2022 05:05:08 10/18/2021 screening breast irina, bilat completed [id number] [facility] (Imaging) [address] [place], [address], 08/10/2022 05:05:08 06/09/2023 screening breast irina, bilat completed [email or web address] [facility] (Imaging) [address] [place], [address], 06/16/2023 14:53:31 01/17/2024 LDCT, chest, for lung cancer screening completed [email or web address] [facility] [address], [place], [address], 02/22/2024 15:47:30 Procedure Notes None recorded. Medical Equipment None Reported. Allergies No known drug allergies Medications Name Sig Start Date Stop Date Status Note LastModified by Organization Details LastModified Time cyclobenzap rine 10 mg tablet 05/17 completed Not Available Not Available Not Available amoxicillin 500 mg capsule 11/26 completed Not Available Not Available Not Available metformin 500 mg tablet TAKE 1 TABLET BY MOUTH TWICE DAILY 2022 active Not Available Not Available Not Avai lable prednisone 10 mg tablet Take by oral route. active Not Available Not Available No t Available nabumetone 750 mg tablet TAKE 1 TABLET BY MOUTH TWICE DAILY active Not Available Not Available No t Available citalopram 10 mg tablet TAKE 1 TABLET BY MOUTH DAILY 2022 active Not Available Not Available Not Avai lable prednisone 20 mg tablet Take 2 tablets every day by oral route for 5 days. active Not Available Not Available No t Available penicillin V potassium 500 mg tablet 12/02 completed Not Available Not Available Not Available amoxicillin 500 mg tablet Take 1 tablet 3 times a day by oral route. 11/26 completed Not Available Not Available Not Available simvastatin 40 mg tablet TAKE 1 TABLET BY MOUTH DAILY 2022 active Not Available Not Available Not Avai lable losartan 100 mg-hydrochl orothiazide 25 mg tablet TAKE 1 TABLET BY MOUTH DAILY IN THE MORNING active Not Available Not Available No t Available methocarbam ol 750 mg tablet 02/24 completed Not Available Not Available Not Available OneTouch Ultra Test strips tests once daily 07/18 completed Not Available Not Available Not Available meclizine 25 mg tablet 12/02 completed Not Available Not Available Not Available baclofen 10 mg tablet TAKE 1 TABLET BY MOUTH THREE TIMES DAILY NEEDED active Not Available Not Available No t Available Soma 350 mg tablet Take 1 tablet 3 times a day by oral route as needed. 06/24 completed Not Available Not Available Not Available amlodipine 10 mg tablet TAKE 1 TABLET BY MOUTH DAILY 2022 active Not Available Not Available Not Avai lable cephalexin 500 mg capsule 11/01 completed Not Available Not Available Not Available hydrochloro thiazide 12.5 mg capsule 08/12 completed Not Available Not Available Not Available nystatin-tr iamcinolone 100,000 unit/g-0.1 % topical cream 02/25 completed Not Available Not Available Not Available gabapentin 300 mg capsule TAKE ONE CAPSULE BY MOUTH EVERY MORNING AND 1 CAPSULE EVERY EVENING AND 1 CAPSULE EVERY NIGHT AT BEDTIME active Not Available Not Available No t Available etodolac 400 mg tablet Take 1 tablet twice a day by oral route for 30 days. active Not Available Not Available No t Available montelukast 10 mg tablet TAKE 1 TABLET BY MOUTH DAILY active Not Available Not Available No t Available cefuroxime axetil 500 mg tablet Take 1 tablet twice a day by oral route for 21 days. active Not Available Not Available No t Available levofloxaci n 500 mg tablet Take 1 tablet every 24 hours by oral route. 09/13 completed Not Available Not Available Not Available methylpredn isolone 4 mg tablets in a dose pack Take 1 package by oral route as directed. 05/17 completed Not Available Not Available Not Available albuterol sulfate HFA 90 mcg/actuati on aerosol inhaler INHALE 1 TO 2 PUFFS BY MOUTH EVERY 4 HOURS NEEDED FOR WHEEZING DIRECTED active Not Available Not Available No t Available Vitamin D2 1,250 mcg (50,000 unit) capsule Take 1 capsule every week by oral route. 12/29 completed Not Available Not Available Not Available losartan 50 mg-hydrochl orothiazide 12.5 mg tablet 08/12 completed Not Available Not Available Not Available fluticasone propionate 50 mcg/actuati on nasal spray,suspe nsion SHAKE LIQUID AND USE 2 SPRAYS IN EACH NOSTRIL EVERY DAY active Not Available Not Available No t Available clotrimazol e 1 % topical cream 03/27 completed Not Available Not Available Not Available Vitamin D3 25 mcg (1,000 unit) capsule Take 1 capsule every day by oral route. 2017 active Not Available Not Available Not Avai lable tizanidine 6 mg capsule TAKE ONE CAPSULE BY MOUTH THREE TIMES DAILY NEEDED FOR SPASM 05/21 completed Not Available Not Available Not Available losartan 100 mg-hydrochl orothiazide 12.5 mg tablet 08/12 completed Not Available Not Available Not Available magnesium 2022 active Not Available Not Available Not Avai lable Vitamin C 2019 active Not Available Not Available Not Avai lable Zyrtec 2020 active Not Available Not Available Not Avai lable OneTouch UltraMini kit 07/18 completed Not Available Not Available Not Available Novofine 32 32 gauge x 1/4 needle 12/29 completed Not Available Not Available Not Available OneTouch Delica Lancets 33 gauge 07/18 completed Not Available Not Available Not Available Suprep Bowel Prep Kit 17.5 gram-3.13 gram-1.6 gram oral solution 11/26 completed Not Available Not Available Not Available Victoza 3-Sukhjinder 0.6 mg/0.1 mL (18 mg/3 mL) subcutaneou s pen injector 02/25 completed Not Available Not Available Not Available Breo Ellipta 100 mcg-25 mcg/dose powder for inhalation INHALE 1 PUFF BY MOUTH EVERY DAY active Not Available Not Available No t Available Fluvirin 6187-0158(P F) 45 mcg (15 mcg x3)/0.5 mL intramuscul ar syringe ADM 0.5ML UTD active Not Available Not Available No t Available Paxlovid 300 mg (150 mg x 2)-100 mg tablets in a dose pack TK 2 NIRMATREL VIR TS AND 1 RITONAVIR T TOGETHER PO BID FOR 5 DAYS BID FOR 5 DAYS 01/16 completed Not Available Not Available Not Available Vitals Date Recorded Body mass index (BMI) Body height Heart rate Body temperature Body weight Systolic blood pressure Diastolic blood pressure Provider Name and Address Organization Details Last Updated DateTime 2 50.1 kg/m2 157.48 cm 78 /min 97.6 [degF] 109228. 31 g 128 mm[Hg] 72 mm[Hg] Not Available [facility] 3 04:47:18 Date Recorded Body mass index (BMI) Body height Heart rate Body temperature Body weight Systolic blood pressure Diastolic blood pressure Provider Name and Address Organization Details Last Updated DateTime 2 49.9 kg/m2 157.48 cm 75 /min 97.2 [degF] 439695. 72 g 104 mm[Hg] 78 mm[Hg] Not Available [facility] 3 04:47:18 Date Recorded Body mass index (BMI) Body height Heart rate Body temperature Body weight Systolic blood pressure Diastolic blood pressure Provider Name and Address Organization Details Last Updated DateTime 3 50.5 kg/m2 157.48 cm 78 /min 98.2 [degF] 212932. 49 g 118 mm[Hg] 78 mm[Hg] Not Available [facility] 3 04:47:18 Date Recorded Body height Body mass index (BMI) Body weight Body temperature Heart rate Oxygen saturation Oxygen saturation in Arterial blood by Pulse oximetry Systolic blood pressure Diastolic blood pressure Provider Name and Address Organization Details Last Updated DateTime 3 157.48 cm 49.7 kg/m2 979906. 12 g 98.5 [degF] 68 /min 96 % 96 % 122 mm[Hg] 70 mm[Hg] Tg [facility] 3 14:19:21 Date Recorded Body height Body mass index (BMI) Body weight Body temperature Heart rate Systolic blood pressure Diastolic blood pressure Provider Name and Address Organization Details Last Updated DateTime 3 157.48 cm 51 kg/m2 485778. 27 g 97.9 [degF] 89 /min 126 mm[Hg] 74 mm[Hg] ANNA [facility] [employer] 3 13:59:40 Social History Question Answer Notes LastModified by Organization Details LastModified Time Tobacco Smoking Status Current Every Day Smoker Not Available [facility] 08/10/2022 04:21:10 Do You Have An Advance Directive? Yes MIGRATION.0301 [id number] Information not available 08/10/2022 What Is Your Level Of Alcohol Consumption? Occasional MIGRATION.0301 209089 Information not available 08/10/2022 Are You Blind Or Do You Have Difficulty Seeing? No MIGRATION.0301 223580 Information not available 08/10/2022 What Is Your Level Of Caffeine Consumption? Moderate MIGRATION.0301 734417 Information not available 08/10/2022 How Much Tobacco Do You Chew? None MIGRATION.0301 416914 Information not available 08/10/2022 In The 14 Days Before Symptom Onset, Have You Had Close Contact With A Laboratory-conf rihc COVID-19 While That Case Was Ill? No MIGRATION.0301 062600 Information not available 08/10/2022 In The 14 Days Before Symptom Onset, Have You Had Close Contact With A Person Who Is Under Investigation For COVID-19 While That Person Was Ill? No MIGRATION.0301 626137 Information not available 08/10/2022 Are You Deaf Or Do You Have Serious Difficulty Hearing? No MIGRATION.0301 354338 Information not available 08/10/2022 What Type Of Diet Are You Following? SPECIFIC Weight Watchers MIGRATION.0301 228601 Information not available 08/10/2022 Which Illicit Or Recreational Drugs Have You Used? None MIGRATION.0301 140080 Information not available 08/10/2022 Do You Or Have You Ever Used E-cigarettes Or Vape? Never Used Electronic Cigarettes MIGRATION.0301 561284 Information not available 08/10/2022 What Is The Highest Grade Or Level Of School You Have Completed Or The Highest Degree You Have Received? 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 No MIGRATION.0301 564530 Information not available 08/10/2022 What Is The Fluoride Status Of Your Home? Unknown MIGRATION.0301 112921 Information not available 08/10/2022 Are There Any Guns Present In Your Home? Yes MIGRATION.0301 448286 Information not available 08/10/2022 Do You Use Insect Repellent Routinely? No MIGRATION.0301 838639 Information not available 08/10/2022 Where Do You Live? SingleLevelHouse MIGRATION.0301 259056 Information not available 08/10/2022 Do You Have A Medical Power Of Nuclear Medicine Chief Technologist? Yes MIGRATION.0301 327356 Information not available 08/10/2022 What Was The Date Of Your Most Recent Tobacco Screening? 05/15/2023 [email or web address] Information not available 05/15/2023 Have You Ever Been Counseled For Unhealthy Alcohol Use? No MIGRATION.0301 206767 Information not available 08/10/2022 Do You Have Any Pets? No MIGRATION.0301 744946 Information not available 08/10/2022 What Is Your Relationship Status? MIGRATION.0301 983307 Information not available 08/10/2022 Do You Use Your Seat Belt Or Car Seat Routinely? Yes MIGRATION.0301 753631 Information not available 08/10/2022 Do You Have Smoke And Carbon Monoxide Detectors In Your Home? Yes MIGRATION.0301 316573 Information not available 08/10/2022 At What Age Did You Start Smoking Tobacco? 24 MIGRATION.0301 381364 Information not available 08/10/2022 Are You Passively Exposed To Smoke? Yes MIGRATION.0301 443019 Information not available 08/10/2022 Do You Or Have You Ever Used Smokeless Tobacco? Never Used Smokeless Tobacco MIGRATION.0301 338815 Information not available 08/10/2022 Are There Any Smokers In Your House? Yes MIGRATION.0301 654970 Information not available 08/10/2022 How Much Tobacco Do You Smoke? 0.5 PPD MIGRATION.0301 607483 Information not available 08/10/2022 What Types Of Sporting Activities Do You Participate In? None MIGRATION.0301 014896 Information not available 08/10/2022 Do You Feel Stressed (tense, Restless, Nervous, Or Anxious, Or Unable To Sleep At Night)? [id number] MIGRATION.0301 039962 Information not available 08/10/2022 Do You Use Any Illicit Or Recreational Drugs? No MIGRATION.0301 269943 Information not available 08/10/2022 Do You Use Sunscreen Routinely? Yes MIGRATION.0301 188993 Information not available 08/10/2022 Have You Recently Traveled Abroad? No MIGRATION.0301 860288 Information not available 08/10/2022 Do You Have Any Dietary Restrictions? No MIGRATION.0301 147098 Information not available 08/10/2022 Do You Or Have You Ever Used Any Other Forms Of Tobacco Or Nicotine? No MIGRATION.0301 476427 Information not available 08/10/2022 Sex: Female Functional Status Question Answer Note LastModified by Organizat ion Details LastModified Time Do you have difficulty walking or climbing stairs? Yes MIGRATION.3011611 026 Information not available 08/10/2022 Do you have transportation difficulties? No MIGRATION.1502275 026 Information not available 08/10/2022 Are you able to walk? YESASSIST MIGRATION.4868940 026 Information not available 08/10/2022 Do you have difficulty doing errands alone? No MIGRATION.7681466 026 Information not available 08/10/2022 Are you able to care for yourself? Yes MIGRATION.1623888 026 Information not available 08/10/2022 Do you have difficulty dressing or bathing? No MIGRATION.9184605 026 Information not available 08/10/2022 What is your exercise level? Moderate MIGRATION.3908049 026 Information not available 08/10/2022 Mental Status Question Answer Note LastModified by Organizat ion Details LastModified Time Do you have difficulty concentrating, remembering or making decisions? No MIGRATION.286509967 6 Information not available 08/10/2022 Family History Relationship Description Onset Age of this Age Resolved Age Notes LastModified by Organization Details LastModified Time Mother Malignant tumor of breast MIGRATION.082 6889449 Not available 08/10/2022 04:45:16 Father Malignant tumor of lung MIGRATION.963 0922211 Not available 08/10/2022 04:45:16 Brother Heart disease MIGRATION.584 [id number] Not available 08/10/2022 04:45:16 Medical History Condition Response NERVE DISEASE N BLINDNESS N RHEUMATIC FEVER N KIDNEY STONES N BLADDER PROBLEMS N MRSA N OTHER # 1 N POLIO N LUNG DISEASE/DISORDER N RADIATION / CHEMOTHERAPY N COPD N Other # 2 N BLOOD DISEASES N EAR OR HEARING PROBLEMS N MUMPS N BOWEL PROBLEMS N DEPRESSION (INCLUDING POST ) N STROKE/TIA N ULCERS N BENIGN PROSTATIC HYPERPLASIA N MEASLES N MYOCARDIAL INFARCTION N OBESITY Y GERD/NAUSEA N ANEURYSM N URINARY/BLADDER/KIDNEY PROBLEMS N CORONARY ARTERY DISEASE (CAD) N ADDICTION CONCERNS N Impotence N ENDOMETRIOSIS N USE OF BLOOD THINNERS N SKIN PROBLEMS Y GASTROINTESTINAL DISORDER N PERIPHERAL VASCULAR DISEASE N MUSCLE,JOINT OR BONE PROBLEMS N GASTROINTESTINAL BLEEDING N BLOOD CLOTS N ASTHMA Y CATARACTS N ERECTILE DYSFUNCTION N VARICOSITIES N GI PROBLEMS N Low Testosterone N INFERTILITY N AIDS/HIV N CHEMOTHERAPY / RADIATION N LIVER DISEASE N MALE HYPOGONADISM N HYPERTENSION Y Deficiency Y TOURETTE'S N ANXIETY DISORDER Y BLOOD TRANSFUSION N ANEMIA/BLOOD DISORDER N CHRONIC EAR INFECTIONS N BRONCHITIS Y TUBERCULOSIS N GLAUCOMA N FOOT PROBLEM N DIVERTICULITIS Y SLEEP APNEA N CHICKENPOX N INFECTIOUS DISEASE N PROSTATE N HEART ARRHYTHMIA N INSOMNIA N HIGH CHOLESTEROL / HYPERLIPIDEMIA Y EYE PROBLEMS N HYPERTHYROIDISM N EDEMA N CHRONIC PAIN SYNDROME N HYPOTHYROIDISM N CONSTIPATION N CAROTID BLOCKAGE N BACK / NECK PROBLEMS Y ATHEROSCLEROSIS N BREAST PROBLEMS Y DIALYSIS N ECZEMA N OSTEOPOROSIS N ARTHRITIS N APPENDICITIS N DIABETES, TYPE Y BAD TEETH N ENT N HEARTBURN / REFLUX N AUTISM SPECTRUM DISORDER (ASD) N HEPATITIS / LIVER DISEASE N GOUT N SLEEP DISORDER N ALZHEIMER'S DISEASE N Brain Problems Y DEMENTIA N HERPES N SEIZURES/EPILEPSY N HEADACHES/MIGRAINES N VASCULAR DISEASE N PACEMAKER N Blood Disorder N DIZZINESS N HEART DISEASE/HEART PROBLEMS N KIDNEY DISEASE N MULTIPLE SCLEROSIS N CANCER: SPECIFY N CARDIAC ARRHYTHMIA N ATRIAL FIBRILLATION N Gall Stones N PULMONARY EMBOLISM N AUTOIMMUNE DISEASE N Gynecological History Statement/Question Response Date of Last Pap Date of Last Mammogram 09/27/2017 Date of Last Colonoscopy 11/15/2007 Most Recent Bone Density 08/25/2014 Obstetrics History GPAL:G 0 P 0 0 0 0 Immunizations Vaccine Type Date Status Note Provider Preston e and Address Organization Details Recorded Time COVID-19, mRNA, LNP-S, PF, 100 mcg/0.5mL dose or 50 mcg/0.25mL dose 1 completed Not Available [facility] 06/29/2023 05:46:32 COVID-19, mRNA, LNP-S, PF, 100 mcg/0.5mL dose or 50 mcg/0.25mL dose 1 completed Not Available [facility] 06/29/2023 05:46:32 Influenza, split virus, quadrivalent, preservative 9 completed Not Available [facility] 06/29/2023 05:46:32 Influenza, split virus, quadrivalent, preservative 8 completed Not Available [facility] 06/29/2023 05:46:32 Influenza, split virus, quadrivalent, preservative 6 completed Not Available [facility] 06/29/2023 05:46:31 Influenza, split virus, quadrivalent, preservative 7 completed Not Available [facility] 06/29/2023 05:46:32 Influenza, split virus, trivalent, preservative 4 completed Not Available [facility] 06/29/2023 05:46:32 Past Encounters Encounter ID Performer Location Encounter Start Date Encounter Closed Date Diagnosis/Indication Diagnosis SNOMED-CT Code Diagnosis ICD10 Code Diagnosis Note [id number] [facility] Internal Med [address] Mariola Faria, [address] [address] 12/16/2020 00:00:00 12/16/2020 21:22:22 [id number] [facility] Internal Med [facility] [address] [place], [place] [address]e., [address] [address] 05/21/2021 00:00:00 06/13/2021 22:42:40 [id number] [facility] Internal Med [facility] [address] [place], [place] [address]kaycee., [address] [address] 07/09/2021 00:00:00 07/09/2021 20:40:37 [id number] [facility] Internal Med [facility] [address] [place], [place] [address]kaycee., [address] [address] 08/10/2021 00:00:00 08/28/2021 22:02:28 [id number] [facility] Internal Med [facility] [address] [place] [address]., [address] [address] 10/06/2021 00:00:00 10/09/2021 20:05:31 [id number] [facility] Internal Med [address] [address] 02/23/2022 00:00:00 02/23/2022 23:00:04 [id number] [facility] [address] [address] 07/18/2022 00:00:00 07/18/2022 11:20:42 [id number] Eugene Moore MD [facility] [address] [address] 01/16/2023 14:12:02 01/16/2023 15:46:06 Essential hypertension 04927443 I10 Type 2 estuardo betes mellitus without complication 822287965 E11.9 Vitamin D deficiency 347 18426 E55.9 Morbid obesity 225535165 E66.01 Anxiety 10797276 F41.9 Asthma 173320150 J45.90 9 Intracrani al meningioma 682288775 D32.0 [id number] Eugene Moore MD [facility] [address] [facility] [address] [place] [address] 05/15/2023 13:50:21 05/15/2023 14:44:42 Essential hypertension 77823171 I10 Anxiety 51869763 F41.9 Morbid obesity 352253904 E66.01 Asthma 464584241 J45.90 9 Intracrani al meningioma 521675916 D32.0 Health Concerns Section Related Observation LastModified by Organization Detai ls LastModified Time None Recorded Concern Status LastModified by Organization Details LastModified Time None Recorded Advance Directives Directive Y: Payers Encounter Date Sequence Insurance Name Policy Number Policy Ralph Covered Member ID Ralph Member ID Guarantor Name 01/16/2023 1 [place] [id number] Mikki Dalton [id number] Mikki Dalton 05/15/2023 1 [place] [id number] Mikki Dalton [id number] Mikki Dalton Notes Date Note Type Note Provider Name and Address Organization Details Recorded Time 01/16/2023 text/html Diabetes no polyphagia no polydipsia does not take sugars. Low vitamin-D level needs to be checked. Hypertension no headache no dizziness. Obesity not losing any weight. Osteoarthritis about the same. Anxiety doing fine no SI or HI no side effects from medications rhinitis is been doing good on current medical therapy. Asthma/COPD stable on inhalers. Eugene Moore MD [address] [facility] [address], [address], [place], [address], Private Practice 01/17/2023 20:26:28 05/15/2023 text/html Diabetes no polyphagia no polydipsia does not take sugars. Low vitamin-D level needs to be checked. Hypertension no headache no dizziness. Obesity not losing any weight. Osteoarthritis about the same. Anxiety doing fine no SI or HI no side effects from medications rhinitis is been doing good on current medical therapy. Asthma/COPD stable on inhalers. Did see the neurosurgeon and no significant changes in meningioma Eugene Moore MD [address] [facility], [address], [place], [address], [facility] [email or web address] 05/15/2023 23:13:11 OBGyn Episode No OBEpisode recorded.
--- OUTSIDE RECORDS SUMMARY | 2024-06-20 04:23 | XMS_ITS | Encounter Summary ---
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, lumbar region (HCC) Morbid (severe) obesity due to excess calories (HCC) Procedures [place]bar [place] [address] [place] [address] Phone: tel: fax: [facility] [address] [place] [address] Referral ID Status Reason Start Date Expiration Date Visits Re quested Visits Authorized [id number] Closed 09/20/2023 10/19/2024 1 1 Reason for Visit * MRI/CAT/PET Scan (Routine) - Closed Specialty Diagnoses / Procedures Referred By Contac t Referred To Contact Radiology Diagnoses Spinal stenosis, lumbar region without neurogenic claudication 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, lumbar region (HCC) Morbid (severe) obesity due to excess calories (HCC) Procedures MRI Lumbar [place] [address] [place] [address] Phone: tel: fax: [facility] [address] [place] [phone] Referral ID Status Reason Start Date Expiration Date Visits Re quested Visits Authorized [id number] Closed 09/20/2023 10/19/2024 1 1 Encounter Details Date Type Department Care Team (Latest Contact Info) Description 09/27/2023 2:17 PM CDT - 09/27/2023 11:59 PM CDT Hospital Encounter [facility] - Imaging [address] [place] [address] Spinal stenosis, lumbar region without neurogenic claudication; Intervertebral disc stenosis of neural canal of lumbar region; Spinal enthesopathy, lumbar region (HCC); Morbid (severe) obesity due to excess calories (HCC) Discharge Disposition: Discharge to home or self care Social History Tobacco Use Types Packs/Day Years Used Date Smoking Tobacco: Every Day Smokeless Tobacco: Never Alcohol Use Standard Drinks/Week Comments Yes 4 (1 standard drink = 0.6 oz pur e alcohol) Comments Unknown Sex and Gender Information Value Date Recorded Sex Assigned at Not on file Legal Sex Female 4:40 AM CAN LINE EXAMINER Gender Identity Not on file Sexual Orientation Not on file documented as of this encounter Medications at Time of Discharge albuterol HFA (VENTOLIN HFA) 90 mcg/actuation inhaler amLODIPine (NORVASC) 10 mg tablet aspirin 81 mg tablet baclofen (LIORESAL) 20 mg tablet cetirizine (ZyrTEC) 10 mg chewable tablet citalopram (CeleXA) 10 mg tablet ergocalciferol, vitamin D2, (VITAMIN D2 ORAL) Take by mouth . gabapentin ER (GRALISE) 300 mg tablet extended release 24 hr losartan-hydrochlo rothiazide (HYZAAR) 100-25 mg per tablet montelukast (SINGULAIR) 10 mg tablet nabumetone (RELAFEN) 750 mg tablet simvastatin (ZOCOR) 40 mg tablet documented as of this encounter Discharge Disposition Disposition Code Departure Means Destination Discharge to home or self care documented in this encounter Plan of Treatment Not on file documented as of this encounter Procedures Procedure Name Priority Date/Time Associated Diagnosis Comments MRI LUMBAR SPINE WO CONTRAST Schedule Routine, Read Routine (OP Routine) 09/27/2023 3:45 PM CDT Spinal stenosis, lumbar region without neurogenic claudication 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 Electronically signed by: Noe Grayson MD Narrative 09/27/2023 4:46 PM CDT EXAMINATION: Magnetic resonance imaging (MRI) of the lumbar spine without contrast HISTORY: back pain. TECHNIQUE: Multiplanar multi-weighted MRI of the lumbar spine was performed without intravenous contrast using the standard lumbar spine protocol. COMPARISON: 01/24/2014 FINDINGS: Grade 1 L4-L5 anterolisthesis. No aggressive marrow replacing osseous lesions or processes are visualized. Vertebral body hemangiomas of varying size are noted. There are no compression fractures. Multilevel degenerative disc disease. The conus medullaris terminates at the level of L1-L2. The distal spinal cord signal intensity is normal. Limited views of the abdomen and pelvis show no soft tissue abnormality. L1-2: Posterior disc-osteophyte complex. Marked ligamentum flavum infolding. There is moderate facet arthropathy. There is moderate right and mild left neuroforaminal stenosis. There is severe spinal canal stenosis. L2-3: Posterior disc-osteophyte complex. Marked ligamentum flavum infolding. There is moderate facet arthropathy. There is moderate neuroforaminal stenosis. There is severe spinal canal stenosis. L3-4: Mild disc bulge. Marked ligamentum flavum infolding. There is moderate facet arthropathy. There is moderate neuroforaminal stenosis. There is moderate spinal canal stenosis. L4-5: Prosthesis with partial disc uncovering and superimposed small central disc protrusion. Marked ligamentum flavum infolding. There is severe facet arthropathy. There is moderate right and mild left neuroforaminal stenosis. There is severe spinal canal stenosis. L5-S1: Mild disc bulge. Marked ligamentum flavum infolding. There is severe facet arthropathy. There is severe right and moderate left neuroforaminal stenosis. There is mild spinal canal stenosis. Procedure Note Noe Grayson MD - 09/27/2023 EXAMINATION: Magnetic resonance imaging (MRI) of the lumbar spine without contrast HISTORY: back pain. TECHNIQUE: Multiplanar multi-weighted MRI of the lumbar spine was performed without intravenous contrast using the standard lumbar spine protocol. COMPARISON: 01/24/2014 FINDINGS: Grade 1 L4-L5 anterolisthesis. No aggressive marrow replacing osseous lesions or processes are visualized. Vertebral body hemangiomas of varying size are noted. There are no compression fractures. Multilevel degenerative disc disease. The conus medullaris terminates at the level of L1-L2. The distal spinal cord signal intensity is normal. Limited views of the abdomen and pelvis show no soft tissue abnormality. L1-2: Posterior disc-osteophyte complex. Marked ligamentum flavum infolding. There is moderate facet arthropathy. There is moderate right and mild left neuroforaminal stenosis. There is severe spinal canal stenosis. L2-3: Posterior disc-osteophyte complex. Marked ligamentum flavum infolding. There is moderate facet arthropathy. There is moderate neuroforaminal stenosis. There is severe spinal canal stenosis. L3-4: Mild disc bulge. Marked ligamentum flavum infolding. There is moderate facet arthropathy. There is moderate neuroforaminal stenosis. There is moderate spinal canal stenosis. L4-5: Prosthesis with partial disc uncovering and superimposed small central disc protrusion. Marked ligamentum flavum infolding. There is severe facet arthropathy. There is moderate right and mild left neuroforaminal stenosis. There is severe spinal canal stenosis. L5-S1: Mild disc bulge. Marked ligamentum flavum infolding. There is severe facet arthropathy. There is severe right and moderate left neuroforaminal stenosis. There is mild spinal canal stenosis. IMPRESSION: Lumbar degenerative disc and joint disease as described above. 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
--- OUTSIDE RECORDS SUMMARY | 2024-06-20 04:23 | XMS_ITS | Clinical Summary ---
Author Organization [facility] Address [address] [place] [address] Care Team Providers Care Avionics Test Technician Name Role Phone Eugene Moore MD Primary Care Provider [phone] Allergies No known active allergies Medications aspirin [...] Problem Noted Date Diagnosed Date Meningioma 01/08/2014 Surgical History Surgery Date Site/Laterality Comments OTHER SURGICAL HISTORY corrective jaw surgery CYST REMOVAL Medical History Medical History Date Comments Brain tumor (benign) (HCC) Arthritis Hypertension Sinusitis Family History Medical History Relation Name Comments Cancer Father Family history of malignant neoplasm - (Added by TW Conv) Hypertension Father Family history of hypertension - (Added by TW Conv) Heart disease Maternal Grandfather Cancer Maternal Grandmother Cancer Mother Family history of malignant neoplasm - (Added by TW Conv) Diabetes Mother Family history of diabetes mellitus - (Added by TW Conv) Hypertension Mother Family history of hypertension - (Added by TW Conv) Relation Name Status Comments Father Maternal Grandfather Maternal Grandmother Mother Social History Tobacco Use Types Packs/Day Years Used Date Smoking Tobacco: Every Day Smokeless Tobacco: Never Tobacco Cessation:Counseling Given: Yes Alcohol Use Standard Drinks/Week Comments Yes 4 (1 standard drink = 0.6 oz pur e alcohol) Comments Unknown Sex and Gender Information Value Date Recorded Sex Assigned at Not on file Legal Sex Female 4:40 AM LAND MANAGEMENT FORESTER Gender Identity Not on file Sexual Orientation Not on file Obstetrics History Last Filed Vital Signs Vital Sign Reading Time Taken Comments Blood Pressure 135/90 08/16/2018 10:43 AM LAND MANAGEMENT FORESTER Pulse 78 08/16/2018 10:43 AM LAND MANAGEMENT FORESTER Temperature - - Respiratory Rate - - Oxygen Saturation - - Inhaled Oxygen Concentration - - Weight 140.6 kg (310 lb) 08/16/2018 10:43 AM LAND MANAGEMENT FORESTER Height 160 cm (5' 3 ) 08/16/2018 10:43 AM LAND MANAGEMENT FORESTER Body Mass Index 54.91 08/16/2018 10:43 AM LAND MANAGEMENT FORESTER Plan of Treatment Health Maintenance Due Date Last Done Comments Breast Cancer Screening-Mammogram 1956 Colon Cancer Screening-Colonoscopy 1956 Depression Screening 1956 Fall Risk Assessment 1956 Hepatitis C Screening 1956 Pneumococcal vaccine 65+ (1 of 2 - PCV) 1962 DTaP/Tdap/Td Vaccine (1 - Tdap) 08/15/1967 Hepatitis B Screening 1974 Zoster Vaccine (1 of 2) 2006 Well Visit 65+ 2021 Osteoporosis Screening-Bone Density Scan 10/19/2023 10/18/2021 Covid-19 Vaccine (2023-2 5 season) 2024 06/03/2021, 09/05/2020, 08/08/2020 Influenza Vaccine (#1) 2024 9, 03/21/2018, 03/14/2017, Additional history exists Insurance MEDICARE [facility] ACCESS Member Subscriber Plan / Payer (Ef fective 2018-Present) Name:Mikki Dalton Relation to Subscriber:Self Name:Mikki Dalton Payer ID:[id number] (NAIC) Type:[facility] Address: [address] [employer] [place] MEDICARE [employer] [facility] Care Teams Avionics Test Technician Relationship Specialty Start Date End Date Eugene Moore MD PCP - General 09/08/16
--- OUTSIDE RECORDS SUMMARY | 2024-06-20 04:23 | XMS_ITS | Encounter Summary ---
Author Organization [facility] Healthcare Address [address] [place] [address] Care Team Providers Care Air Conditioner Installer Helper Name Role Phone Eugene Moore MD Primary Care Provider [phone] Reason for Referral * MRI/CAT/PET Scan (Routine) - Closed Specialty Diagnoses / Procedures Referred By Rumaac t Referred To Contact Radiology Diagnoses Meningioma (HCC) Procedures MRI Brain W WO Contrast Shania Mcmullen NP Phone: tel: fax: [address] [phone] Referral ID Status Reason Start Date Expiration Date Visits Re quested Visits Authorized [id number] Closed 04/19/2023 06/17/2023 1 1 GO DANCER Reason for Visit * MRI/CAT/PET Scan (Routine) - Closed Specialty Diagnoses / Procedures Referred By Contac rico Referred To Contact Radiology Diagnoses Meningioma (HCC) Procedures MRI Brain W WO Contrast Shania Mcmullen NP Phone: tel: fax: [address] [phone] Referral ID Status Reason Start Date Expiration Date Visits Re quested Visits Authorized [id number] Closed 04/19/2023 06/17/2023 1 1 Encounter Details Date Type Department Care Team (Latest Contact Info) Description 05/08/2023 3:51 PM GO GO DANCER - 05/08/2023 11:59 PM GO GO DANCER Hospital Encounter [facility] [address] [place] [address] Meningioma (HCC) Discharge Disposition: Discharge to home or self care Social History Tobacco Use Types Packs/Day Years Used Date Smoking Tobacco: Every Day Smokeless Tobacco: Never Alcohol Use Standard Drinks/Week Comments Yes 4 (1 standard drink = 0.6 oz pur e alcohol) Comments Unknown Sex and Gender Information Value Date Recorded Sex Assigned at Not on file Legal Sex Female 4:40 AM GO GO DANCER Gender Identity Not on file Sexual Orientation [...] Name Priority Date/Time Associated Diagnosis Comments MRI BRAIN W WO CONTRAST Schedule Routine, Read Routine (OP Routine) 05/08/2023 5:28 PM GO GO DANCER Meningioma (HCC) documented in this encounter Results * MRI Brain W WO Contrast (05/08/2023 5:28 PM GO GO DANCER) Anatomical Region Laterality Modality Head and Neck N/A Magnetic Resonan ce 05/09/2023 8:40 AM GO GO DANCER Impressions 05/09/2023 12:23 PM GO GO DANCER Redemonstrated left frontal vertex, left frontal, and right parietal meningiomas are not significantly changed compared to prior examination when accounting for differences in technique. Dictated by: Adan Vega MD PHD The radiology attending physician has personally reviewed this study, and had reviewed and/or edited this written report and agrees with it. Electronically signed by: Tg Meyers M.D. Narrative 05/09/2023 12:23 PM GO GO DANCER EXAMINATION: Magnetic resonance imaging (MRI) of the [...] by: Tg Meyers M.D. Shania Mcmullen NP IMG MRI PROCEDURES Final Resu lt documented in this encounter Visit Diagnoses Diagnosis Meningioma (HCC) Benign neoplasm of cerebral meninges documented in this encounter Administered Medications Inactive Administered Medications - up to 3 most recent administrations Medication Order MAR Action Action Date Dose Rate Site gadoterate meglumine injection 20 mL 20 mL, intravenous, Once in imaging, contrast, Starting on 05/08/23 at 1656, For 1 dose Contrast Given 05/08/2023 4:56 PM GO GO DANCER 20 mL documented in this encounter Orders Medications Ordered That Al ht Not Have Been Administered Count Last Ordered Date First Ordered Date gadoterate meglumine injection 20 mL 04/13 documented in this encounter Care Teams Air Conditioner Installer Helper Relationship Specialty Start Date End Date Eugene Moore MD PCP - General 09/08/16 documented as of this encounter
--- OUTSIDE RECORDS SUMMARY | 2024-06-20 04:24 | XMS_ITS | Encounter Summary ---
Author Organization [facility] Address [address] [place] [address] Phone Care Team Providers Care Deputy Brand Inspector Name Role Phone Eugene Moore MD Primary Care Provider [phone] Encounter Details Date Type Department Care Team (Late st Contact Info) Description 08/16/2018 Orders Only [facility] Neurosurgery [address] [place] [address] [place] [id number] Jeanne [place] RMA Social History Tobacco Use Types Packs/Day Years Used Date Smoking Tobacco: Every Day Smokeless Tobacco: Never Alcohol Use Standard Drinks/Week Comments Yes 4 (1 standard drink = 0.6 oz pur e alcohol) Comments Unknown Sex and Gender Information Value Date Recorded Sex Assigned at Not on file Legal Sex Female 4:40 AM RNFA Gender Identity Not on file Sexual Orientation Not on file documented as of this encounter Plan of Treatment Not on file documented as of this encounter Visit Diagnoses Not on filedocumented in this encounter Historical Medications * This list may reflect changes made after this encounter. Medication Sig Dispense Quantity Refills Last Filled Start D ate End Date simvastatin (ZOCOR) 40 mg tablet nabumetone (RELAFEN) 750 mg tablet montelukast (SINGULAIR) 10 mg tablet losartan-hydrochlorot hiazide (HYZAAR) 100-25 mg per tablet citalopram (CeleXA) 10 mg tablet baclofen (LIORESAL) 20 mg tablet amLODIPine (NORVASC) 10 mg tablet albuterol HFA (VENTOLIN HFA) 90 mcg/actuation inhaler cetirizine (ZyrTEC) 10 mg chewable tablet gabapentin ER (GRALISE) 300 mg tablet extended release 24 hr aspirin 81 mg tablet baclofen (LIORESAL) 10 mg tablet 08/16/2018 added in this encounter Care Teams Deputy Brand Inspector Relationship Specialty Start Date End Date Eugene Moore MD PCP - General 09/08/16 documented as of this encounter
--- OUTSIDE RECORDS SUMMARY | 2024-06-20 04:24 | XMS_ITS | Encounter Summary ---
Author Organization [facility] Facility Care Team Providers Care Cell Repairer Name Role Phone Unavailable Primary Care Provider Unavailabl e Encounter Details Date Type Department Care Team (Late st Contact Info) Description 07/03/2015 - 07/03/2015 11:59 PM PETROLEUM INSPECTOR SUPERVISOR Hospital Encounter [facility] Eugene Gabriel MD [address] [place] [address] DR DEPT NEUROSURGERY, [place] [address] Benign neoplasm of meninges (CMS/HCC) Social History Tobacco Use Types Packs/Day Years Used Date Smoking Tobacco: Every Day Comments Unknown Sex and Gender Information Value Date Recorded Sex Assigned at Not on file Legal Sex Female 4:40 AM PETROLEUM INSPECTOR SUPERVISOR Gender Identity Not on file Sexual Orientation Not on file documented as of this encounter Plan of Treatment Not on file documented as of this encounter Procedures Procedure Name Priority Date/Time Associated Diagnosis Comments DISCHARGE LABORATORY CUMULATIVE REPORT 07/04/2015 MRI BRAIN W WO CONTRAST Routine 07/03/2015 9:40 AM PETROLEUM INSPECTOR SUPERVISOR BLOOD CREATININE, POINT OF CARE Routine 07/03/2015 8:47 AM PETROLEUM INSPECTOR SUPERVISOR documented in this encounter Results * DISCHARGE LABORATORY CUMULATIVE REPORT (07/04/2015) Narrative 07/04/2015 Ordered by an unspecified provider. us Historical Provider LAB BLOOD ORDERABLES Fany l Result * MRI Brain WWO Contrast (07/03/2015 9:40 AM PETROLEUM INSPECTOR SUPERVISOR) Anatomical Region Laterality Modality Head and Neck N/A Magnetic Resonan ce 07/03/2015 9:40 AM PETROLEUM INSPECTOR SUPERVISOR Narrative 07/03/2015 3:32 PM PETROLEUM INSPECTOR SUPERVISOR MIREYA GALLARDO M.D. KATY SUÁREZ M.D. FINAL REPORT The radiology attending physician has personally reviewed this study, and has reviewed and/or edited this written report and agrees with it. ACC# ??Date Time ??Exam [id number] Jul 03, 2015 09:40:00 [id number] MRI Brain wo&with contrast EXAMINATION: ?? Magnetic resonance imaging (MRI) of the brain and brainstem without and with contrast HISTORY: Meningiomas TECHNIQUE: Multiplanar multi-weighted MRI of the brain and brainstem was performed without and with intravenous contrast using the brain tumor protocol. This included high-resolution T1-weighted images with intravenous contrast and data for perfusion analysis. Contrast information: 22 mL Dotarem COMPARISON: 07/04/2014, 11/29/2013 FINDINGS: Again seen are multiple extra-axial, dural-based, enhancing lesions in the right parietal, left frontal, and an additional lesion in the left frontal near the vertex. These lesions all remained stable in size compared to the prior examination. The superior sagittal sinus demonstrates normal venous flow. The corpus callosum is normal in shape and signal intensity. The posterior fossa is unremarkable. The pituitary and sella are normal. The brainstem and craniocervical junction are unremarkable. Diffusion weighted images reveal no hyperintensities to suggest acute cerebral infarction. The ventricles are normal in size and position without evidence of hydrocephalus. The paranasal sinuses are normal. The visualized portions of the mastoids are unremarkable. The orbits appear normal. Normal flow voids are demonstrated in the carotid arteries and basilar artery. In the visualized upper cervical spine, there is new anterolisthesis of C3 on C4 with associated canal stenosis. There is T1 hypointensity in the central cord, concerning for cord edema. IMPRESSION: ?? 1. Stable extra-axial enhancing dural based lesions, compatible with meningiomas. 2. New anterolisthesis of C3 on C4 with associated canal stenosis and T1 hypointensity in the central cord, concerning for cord edema. Recommend dedicated cervical spine MRI for further evaluation. Dr. Suárez discussed these findings with Dr. Hyde via telephone on 07/03/2015 at 1:15 p.m. Requested By: Dictated By: ?? KATY SUÁREZ M.D. ??on Jul 03 2015 ??1:12P This document has been electronically signed by: MIREYA GALLARDO M.D. on Jul 03 2015 ??3:31P [id number] Procedure Note Provider, MD Singh - 10/11/2016 MIREYA GALLARDO M.D. KATY SUÁREZ M.D. FINAL REPORT The radiology attending physician has personally reviewed this study, and has reviewed and/or edited this written report and agrees with it. ACC# Date Time Exam [id number] Jul 03, 2015 09:40:00 [id number] MRI Brain wo&with contrast EXAMINATION: Magnetic resonance imaging (MRI) of the brain and brainstem without and with contrast HISTORY: Meningiomas TECHNIQUE: Multiplanar multi-weighted MRI of the brain and brainstem was performed without and with intravenous contrast using the brain tumor protocol. This included high-resolution T1-weighted images with intravenous contrast and data for perfusion analysis. Contrast information: 22 mL Dotarem COMPARISON: 07/04/2014, 11/29/2013 FINDINGS: Again seen are multiple extra-axial, dural-based, enhancing lesions in the right parietal, left frontal, and an additional lesion in the left frontal near the vertex. These lesions all remained stable in size compared to the prior examination. The superior sagittal sinus demonstrates normal venous flow. The corpus callosum is normal in shape and signal intensity. The posterior fossa is unremarkable. The pituitary and sella are normal. The brainstem and craniocervical junction are unremarkable. Diffusion weighted images reveal no hyperintensities to suggest acute cerebral infarction. The ventricles are normal in size and position without evidence of hydrocephalus. The paranasal sinuses are normal. The visualized portions of the mastoids are unremarkable. The orbits appear normal. Normal flow voids are demonstrated in the carotid arteries and basilar artery. In the visualized upper cervical spine, there is new anterolisthesis of C3 on C4 with associated canal stenosis. There is T1 hypointensity in the central cord, concerning for cord edema. IMPRESSION: 1. Stable extra-axial enhancing dural based lesions, compatible with meningiomas. 2. New anterolisthesis of C3 on C4 with associated canal stenosis and T1 hypointensity in the central cord, concerning for cord edema. Recommend dedicated cervical spine MRI for further evaluation. Dr. Suárez discussed these findings with Dr. Hyde via telephone on 07/03/2015 at 1:15 p.m. Requested By: Dictated By: KATY SUÁREZ M.D. on Jul 03 2015 1:12P This document has been electronically signed by: MIREYA GALLARDO M.D. on Jul 03 2015 3:31P [id number] us Historical Provider IMG MRI PROCEDURES Final Result * Blood creatinine, point of care (07/03/2015 8:47 AM PETROLEUM INSPECTOR SUPERVISOR) Creatinine, POC, bld 0.6 0.6 - 1.1 mg/dl HISTORICAL RESULTS Blood specimen (specimen) 07/03/2015 8:47 AM PETROLEUM INSPECTOR SUPERVISOR Eugene Hyde MD LAB BLOOD ORDERABLES Fany l Result HISTORICAL RESULTS documented in this encounter Visit Diagnoses Diagnosis Benign neoplasm of meninges (HCC) Benign neoplasm of cerebral meninges documented in this encounter
--- OUTSIDE RECORDS SUMMARY | 2024-06-20 04:24 | XMS_ITS | Encounter Summary ---
Author Organization [facility] Care Team Providers Care Senior Rd Engineer Name Role Phone Unavailable Primary Care Provider Unavailabl e Encounter Details Date Type Department Care Team (Late st Contact Info) Description 01/08/2014 - 01/08/2014 11:59 PM CDT Hospital Encounter [facility] Eugene Gabriel MD [address] [place] [address] DR DEPT NEUROSURGERY, [place] [address] Social History Tobacco Use Types Packs/Day Years Used Date Smoking Tobacco: Never Assessed Comments Unknown Sex and Gender Information Value Date Recorded Sex Assigned at Not on file 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 TENA HAILE M.D. FINAL REPORT The radiology attending physician has personally reviewed this study, and has reviewed and/or edited this written report and agrees with it. ACC# ??Date Time ??Exam [id number] Jan 08, 2014 11:12:00 [id number] [facility] Neuro Consult EXAMINATION: ?? RADIOLOGY CONSULTATION ON OUTSIDE IMAGING STUDY STUDY INITIALLY PERFORMED: ??On 11/29/2013 by [facility]. TYPE OF STUDY: Multiple MR images of the brain without and with intravenous contrast are provided at the time of this interpretation. The protocol was adequate to address the clinical question. The outside final report was not provided at the time of this second opinion. TYPE OF CONSULTATION: ??Consult on outside imaging study with images submitted through [facility]. DATE OF CONSULTATION: 01/08/2014 REASON FOR CONSULTATION: Meningioma. COMPARISON: None available. FINDINGS: There is a 2.0 x 1.9 x 1.5 cm enhancing and extra-axial mass in the right parietal lobe (table position 108), likely a meningioma. Additionally, there is a 1.1 x 1.0 x 0.4 cm extra-axial mass in the left frontal lobe near the frontal pole with a broad dural attachment, likely representing an en plaque meningioma (table position 126). There is an enhancing, extra-axial lesion at the left vertex (table position 144) measuring 1.2 x 1.2 x 0.6 cm, likely representing an additional meningioma. The scalp and calvarium are normal. The ventricles are of normal size, shape and morphology. The orbits, mastoids and paranasal sinuses are normal. There are no areas of diffusion restriction to suggest acute stroke. ?? IMPRESSION: ?? Three extra-axial, enhancing masses most likely representing meningiomas. The findings, conclusions and recommendations within this report do not replace the initial findings, conclusions ??and recommendations made at the facility where the study was performed based upon the imaging and clinical condition at that time. ??Comparison with the prior report and clinical history is necessary. ??The provided images may or may not represent the [facility] source data set and thus may contain changes that may lower the accuracy of this second-opinion interpretation. ?? Requested By: EUGENE GREENWOOD ??Janee Dictated By: ?? TENA HAILE M.D. ??on Jan 09 2014 10:33A This document has been electronically signed by: NISHA VINSON M.D. on Jan 09 2014 10:43P Procedure Note Provider, MD Singh - 10/11/2016 NISHA VINSON M.D. TENA HAILE M.D. FINAL REPORT The radiology attending physician has personally reviewed this study, and has reviewed and/or edited this written report and agrees with it. [facility]# Date Time Exam [id number] Jan 08, 2014 11:12:00 [id number] [facility] Neuro Consult EXAMINATION: RADIOLOGY CONSULTATION ON OUTSIDE IMAGING STUDY STUDY INITIALLY PERFORMED: On 11/29/2013 by [facility]. TYPE OF STUDY: Multiple MR images of the brain without and with intravenous contrast are provided at the time of this interpretation. The protocol was adequate to address the clinical question. The outside final report was not provided at the time of this second opinion. TYPE OF CONSULTATION: Consult on outside imaging study with images submitted through [facility]. DATE OF CONSULTATION: 01/08/2014 REASON FOR CONSULTATION: Meningioma. COMPARISON: None available. FINDINGS: There is a 2.0 x 1.9 x 1.5 cm enhancing and extra-axial mass in the right parietal lobe (table position 108), likely a meningioma. Additionally, there is a 1.1 x 1.0 x 0.4 cm extra-axial mass in the left frontal lobe near the frontal pole with a broad dural attachment, likely representing an en plaque meningioma (table position 126). There is an enhancing, extra-axial lesion at the left vertex (table position 144) measuring 1.2 x 1.2 x 0.6 cm, likely representing an additional meningioma. The scalp and calvarium are normal. The ventricles are of normal size, shape and morphology. The orbits, mastoids and paranasal sinuses are normal. There are no areas of diffusion restriction to suggest acute stroke. IMPRESSION: Three extra-axial, enhancing masses most likely representingmeningiomas. The findings, conclusions and recommendations within this report do not replace the initial findings, conclusions and recommendations made at the facility where the study was performed based upon the imaging and clinical condition at that time. Comparison with the prior report and clinical history is necessary. The provided images may or may not represent the iliamna source data set and thus may contain changes that may lower the accuracy of this second-opinion interpretation. Requested By: EUGENE GREENWOOD M.D. Dictated By: TENA HAILE M.D. on Jan 09 2014 10:33A This document has been electronically signed by: NISHA VINSON M.D. on Jan 09 2014 10:43P us Historical Provider MD [facility] XR PROCEDURES Final R esult documented in this encounter Visit Diagnoses Not on filedocumented in this encounter
--- OUTSIDE RECORDS SUMMARY | 2024-06-20 04:24 | XMS_ITS | Encounter Summary ---
Author Organization [facility] Healthcare Address [address] [place] [address] Care Team Providers Care Derrick Worker Well Service Name Role Phone Eugene Moore MD Primary Care Provider [phone] Encounter Details Date Type Department Care Team (Latest Contact Info) Description 09/08/2016 11:42 AM CDT - 09/08/2016 11:59 PM CDT Hospital Encounter [facility] [phone] Eugene Hyde MD [address] [place] [address] DEPT NEUROSURGERY, [place] [address] Discharge Disposition: Discharge to home or self care Social History Tobacco Use Types Packs/Day Years Used Date Smoking Tobacco: Every Day Comments Unknown Sex and Gender Information Value Date Recorded Sex Assigned at Not on file 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 Gender Identity Not on file Sexual Orientation Not on file documented as of this encounter Discharge Disposition Disposition Code Departure Means Destination Discharge to home or self care documented in this encounter Plan of Treatment Not on file documented as of this encounter Procedures Procedure Name Priority Date/Time Associated Diagnosis Comments MRI BRAIN W WO CONTRAST Routine 09/08/2016 6:33 PM CDT documented in this encounter Results * MRI Brain W WO Contrast (09/08/2016 6:33 PM CDT) Anatomical Region Laterality Modality Head and Neck N/A Magnetic Resonan ce 09/08/2016 6:33 PM CDT Narrative 09/08/2016 6:33 PM CDT LEI NAJERA M.D. CACHORRO MONGE M.D. FINAL REPORT The radiology attending physician has personally reviewed this study, and has reviewed and/or edited this written report and agrees with it. ACC# ??Date Time ??Exam [id number] Sep 08, 2016 13:33:00 [id number] MRI Brain wo and with contrast EXAMINATION: ?? Magnetic resonance imaging (MRI) of the brain and brainstem without and with contrast HISTORY: Multiple meningiomas. TECHNIQUE: Multiplanar multi-weighted MRI of the brain and brainstem was performed without and with intravenous contrast using the brain tumor protocol. This included high-resolution T1-weighted images with intravenous contrast and data for perfusion analysis. Contrast information: 26 mL Dotarem COMPARISON: MRI dated 07/03/2015 FINDINGS: Again seen are multiple extra-axial, dural-based, [...] the carotid arteries and basilar artery. IMPRESSION: ?? Stable extra-axial enhancing dural based lesions along bilateral cerebral convexities, consistent with meningiomas. Requested By: Eugene Hyde ??Sarah. ? Dictated By: ?? CACHORRO MONGE M.D. ??on Sep 08 2016 ??2:31P This document has been electronically signed by: LEI NAJERA M.D. on Sep 08 2016 ??4:17P [id number] Procedure Note Miscellaneous, Notinfile / Provider, MD Singh - 11/02/2016 Janee WOODS M.D. FINAL REPORT The radiology attending physician has personally reviewed this study, and has reviewed and/or edited this written report and agrees with it. [facility]# Date Time Exam [id number] Sep 08, 2016 13:33:00 [id number] MRI Brain wo and with contrast EXAMINATION: Magnetic resonance imaging (MRI) of the brain and brainstem without and with contrast HISTORY: Multiple meningiomas. TECHNIQUE: Multiplanar multi-weighted MRI of the brain and brainstem was performed without and with intravenous contrast using the brain tumor protocol. This included high-resolution T1-weighted images with intravenous contrast and data for perfusion analysis. Contrast information: 26 mL Dotarem COMPARISON: MRI dated 07/03/2015 FINDINGS: Again seen are multiple extra-axial, dural-based, [...] the carotid arteries and basilar artery. IMPRESSION: Stable extra-axial enhancing dural based lesions along bilateral cerebral convexities, consistent with meningiomas. Requested By: Eugene Hyde M.D. Dictated By: CACHORRO MONGE M.D. on Sep 08 2016 2:31P This document has been electronically signed by: LEI NAJERA M.D. on Sep 08 2016 4:17P [id number] us Not In File Miscellaneous IMG MRI PROCEDURES Fin al Result documented in this encounter Visit Diagnoses Not on filedocumented in this encounter Care Teams Derrick Worker Well Service Relationship Specialty Start Date End Date Eugene Moore MD PCP - General 09/08/16 documented as of this encounter
--- OUTSIDE RECORDS SUMMARY | 2024-06-20 04:24 | XMS_ITS | Encounter Summary ---
Author Organization [facility] Facility Care Team Providers Care Lamp Wirer Name Role Phone Unavailable Primary Care Provider Unavailabl e Encounter Details Date Type Department Care Team (Late st Contact Info) Description 07/04/2014 - 07/04/2014 11:59 PM TITLE I COORDINATOR Hospital Encounter [facility] Eugene Gabriel MD [address] [place] [address] DR DEPT NEUROSURGERY, [place] [address] Benign neoplasm of cerebral meninges (HCC) Social History Tobacco Use Types Packs/Day Years Used Date Smoking Tobacco: Every Day Comments Unknown Sex and Gender Information Value Date Recorded Sex Assigned at Not on file Legal Sex Female 4:40 AM 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 COORDINATOR Gender Identity Not on file Sexual Orientation Not on file documented as of this encounter Plan of Treatment Not on file documented as of this encounter Procedures Procedure Name Priority Date/Time Associated Diagnosis Comments MRI BRAIN W WO CONTRAST Routine 07/04/2014 9:01 AM TITLE I COORDINATOR BLOOD CREATININE, POINT OF CARE Routine 07/04/2014 8:16 AM TITLE I COORDINATOR DISCHARGE LABORATORY CUMULATIVE REPORT Routine 07/04/2014 12:00 AM TITLE I COORDINATOR documented in this encounter Results * MRI Brain WWO Contrast (07/04/2014 9:01 AM TITLE I COORDINATOR) Anatomical Region Laterality Modality Head and Neck N/A Magnetic Resonan ce 07/04/2014 9:01 AM TITLE I COORDINATOR Narrative 07/04/2014 1:03 PM TITLE I COORDINATOR RADHA TURCIOS M.D. DIETER VO M.D. FINAL REPORT The radiology attending physician has personally reviewed this study, and has reviewed and/or edited this written report and agrees with it. ACC# ??Date Time ??Exam [id number] Jul 04, 2014 09:01:00 [id number] MRI Brain wo&with contrast EXAMINATION: ?? Magnetic resonance imaging (MRI) of the brain and brainstem without and with ??contrast HISTORY: ??Meningiomas TECHNIQUE: Multiplanar, multisequences of the brain were performed as part of a general brain protocol without and with ??intravenous contrast. Contrast information: Intravenous contrast used: Multihance 0.1mmol/kg 20 ml. Comparison: ??Prior outside hospital study dated 11/29/2013 FINDINGS: BRAIN: There are multiple small extra-axial, enhancing dural based lesions noted, ??located in the right parietal, left frontal and another in the left frontal near the vertex. These lesions remain stable compared to the prior study. The superior sagittal sinus demonstrates normal venous flow. The corpus callosum is normal in shape and signal intensity. The posterior fossa is unremarkable. The pituitary and sella are normal. The brainstem and craniocervical junction are unremarkable. Diffusion weighted images reveal no hyperintensities to suggest acute cerebral infarction. . The ventricles are normal in size and position without evidence of hydrocephalus. The visualized portions of the orbits, mastoids and paranasal sinuses are unremarkable. Normal flow voids are demonstrated in the carotid arteries and basilar artery. IMPRESSION: ?? Three ??stable extra-axial enhancing lesions, likely representing meningiomas. Requested By: Dictated By: ?? DIETER VO M.D. ??on Jul 04 2014 12:21P This document has been electronically signed by: RADHA TURCIOS M.D. on Jul 04 2014 ??1:03P [id number] Procedure Note Provider, MD Singh - 10/11/2016 RADHA TURCOIS M.D. DIETER VO M.D. FINAL REPORT The radiology attending physician has personally reviewed this study, and has reviewed and/or edited this written report and agrees with it. ACC# Date Time Exam [id number] Jul 04, 2014 09:01:00 [id number] MRI Brain wo&with contrast EXAMINATION: Magnetic resonance imaging (MRI) of the brain and brainstem without and with contrast HISTORY: Meningiomas TECHNIQUE: Multiplanar, multisequences of the brain were performed as part of a general brain protocol without and with intravenous contrast. Contrast information: Intravenous contrast used: Multihance 0.1mmol/kg 20 ml. Comparison: Prior outside hospital study dated 11/29/2013 FINDINGS: BRAIN: There are multiple small extra-axial, enhancing dural based lesions noted, located in the right parietal, left frontal and another in the left frontal near the vertex. These lesions remain stable compared to the prior study. The superior sagittal sinus demonstrates normal venous flow. The corpus callosum is normal in shape and signal intensity. The posterior fossa is unremarkable. The pituitary and sella are normal. The brainstem and craniocervical junction are unremarkable. Diffusion weighted images reveal no hyperintensities to suggest acute cerebral infarction. . The ventricles are normal in size and position without evidence of hydrocephalus. The visualized portions of the orbits, mastoids and paranasal sinuses are unremarkable. Normal flow voids are demonstrated in the carotid arteries and basilar artery. IMPRESSION: Three stable extra-axial enhancing lesions, likely representing meningiomas. Requested By: Dictated By: DIETER VO M.D. on Jul 04 2014 12:21P This document has been electronically signed by: RADHA TURCIOS M.D. on Jul 04 2014 1:03P [id number] Historical Provider IMG MRI PROCEDURES Final Result * Blood creatinine, point of care (07/04/2014 8:16 AM TITLE I COORDINATOR) Creatinine, POC, bld 0.7 0.6 - 1.1 mg/dl HISTORICAL RESULTS Blood specimen (specimen) 07/04/2014 8:16 AM TITLE I COORDINATOR Eugene Hyde MD LAB BLOOD ORDERABLES Fany steiner Result HISTORICAL RESULTS * Discharge Laboratory Cumulative Report (07/04/2014 12:00 AM TITLE I COORDINATOR) 07/04/2014 Narrative HISTORICAL RESULTS - 07/04/2014 11:19 AM TITLE I COORDINATOR ?[facility] ?Department of Laboratories ? [facility] [place] ? [place] [address] Patient Name: ??MIKKI DALTON [facility] Rec Number: [id number] Fin Number: ?[id number] Date: ?1955 Sex/Age: ? Female 58 years Admit Date: ?07/04/2014 Discharge Date: 07/04/2014 Doctor: ?MilagroyimiEugene benoit [place] Facility: ?[facility] Location: ?[facility] Chart Printed: 07/04/2014 11:19 ?? * Abnormal ?? C Critical ?? f Footnote ?? ^ Corrected ?? L Low ?? H High ? i Interp Data ?? @ Reference Lab ?Chart Type:Cumulative ?POINT OF CARE TESTS ? Chemistry ?Test: Creat iPOC ? Reference: [0.6-1.1] ? Units: mg/dL 07/04/2014 ?? 08:16:00 ?? 0.7 us Historical Provider MD LAB BLOOD ORDERABLES Fany l Result HISTORICAL RESULTS documented in this encounter Visit Diagnoses Diagnosis Benign neoplasm of cerebral meninges (HCC) Benign neoplasm of cerebral meninges documented in this encounter
--- OUTSIDE RECORDS SUMMARY | 2024-06-20 04:24 | XMS_ITS | Encounter Summary ---
Author Organization [facility] Facility Care Team Providers Care Senior Graduate Advisor Name Role Phone Unavailable Primary Care Provider Unavailabl e Encounter Details Date Type Department Care Team (Late st Contact Info) Description 01/24/2014 - 01/24/2014 11:59 PM CDT Hospital Encounter [facility] Eugene Gabriel MD [address] [place] [address] DR DEPT NEUROSURGERY, [place] [address] Benign neoplasm of cerebral meninges (HCC) Social History Tobacco Use Types Packs/Day Years Used Date Smoking Tobacco: Never Assessed Comments Unknown Sex and Gender Information Value Date Recorded Sex Assigned at Not on file Legal Sex Female 4:40 AM CHEFS Gender Identity Not on file Sexual Orientation Not on file documented as of this encounter Plan of Treatment Not on file documented as of this encounter Procedures Procedure Name Priority Date/Time Associated Diagnosis Comments MRI LUMBAR SPINE W WO CONTRAST Routine 01/24/2014 5:07 PM CDT MRI THORACIC SPINE W WO CONTRAST Routine 01/24/2014 5:07 PM CDT MRI CERVICAL SPINE W WO CONTRAST Routine 01/24/2014 5:07 PM CDT BLOOD CREATININE, POINT OF CARE Routine 01/24/2014 2:42 PM CDT DISCHARGE LABORATORY CUMULATIVE REPORT Routine 01/24/2014 12:00 AM CDT documented in this encounter Results * MRI Thoracic Spine WWO Contrast (01/24/2014 5:07 PM CDT) Anatomical Region Laterality Modality Spine N/A Magnetic Resonan ce 01/24/2014 5:07 PM CDT Narrative 01/27/2014 1:08 PM CDT CONCHITA GUERRA M.D. MIREYA AGUILAR M.D. FINAL REPORT The radiology attending physician has personally reviewed this study, and has reviewed and/or edited this written report and agrees with it. ACC# ??Date Time ??Exam [id number] Jan 24, 2014 17:07:00 09405 MRI Cervical Spn wo&wi con [id number] Jan 24, 2014 17:07:00 [id number] MRI ThoracicSpn wo&wi cont [id number] Jan 24, 2014 17:07:00 [id number] MRI Lumbar Spn wo&wi cont EXAMINATION: ?? 1.Cervical spine MRI without and with contrast. 2. Thoracic spine MRI without ??and with contrast. 3. Lumbar spine MRI without ??and with contrast. HISTORY: Meningioma TECHNIQUE: 1.Multi-planar multi-weighted magnetic resonance imaging of the cervical spine was performed without and withadministration of intravenous contrast using the standard cervical spine protocol. 2.Multi-planar multi-weighted magnetic resonance imaging of the thoracic spine was performed without and withadministration of intravenous contrast using the standard thoracic spine protocol. 3. Multiplanar multi-weighted magnetic resonance imaging of the lumbar spine was performed without and with administration of intravenous contrast using the standard lumbar spine protocol. Contrast information: Intravenous contrast used: Multihance 0.1mmol/kg 20 mL. Comparison: ??None available. FINDINGS: CERVICAL SPINE: Is mild C5 on C6 retrolisthesis. There are multilevel degenerative endplate changes of the lower cervical spine. No acute fracture is identified. ??However, if trauma is suspected, a CT scan would be a more sensitive examination for fractures. The spinal cord demonstrates normal signal intensity on all sequences. ??There is mild disc height loss in the lower cervical spine. No annular fissure is identified. ??No soft tissue abnormality is identified. Normal signal voids are present in the vertebral arteries. No abnormal areas of contrast enhancement are seen following administration of intravenous contrast. THORACIC SPINE: The thoracic spine is in the normal anatomic alignment. Vertebral bodies demonstrate normal signal intensity on all sequences. ??The spinal cord demonstrates normal signal intensity on all sequences. ??No soft tissue abnormality is identified. ??No soft tissue abnormality within the limited views of the chest and abdomen is identified.The aorta is normal. No abnormal areas of enhancement are identified following administration of intravenous contrast. LUMBAR SPINE: There is grade one anterolisthesis of L4 on L5. Vertebral bodies are of normal height without compression fractures. There are scattered hemangiomas throughout the lumbar spine. The conus medullaris terminates at the level of T12-L1 ??and the distal spinal cord signal intensity is normal. Intervertebral discs show normal height and T2 signal intensity. Annular fissures are not identified. there is severe central canal stenosis at L4-L5. No abnormal areas of enhancement are identified following administration of intravenous contrast. IMPRESSION: ?? 1. ??Diffuse degenerative changes of the lower cervical, thoracic, and lumbar spine with marked spinal stenosis at L4-L5. There is no cord signal abnormality. Requested By: Dictated By: ?? MIREYA AGUILAR M.D. ??on Jan 25 2014 10:33A This document has been electronically signed by: CONCHITA GUERRA M.D. on Jan 27 2014 ??1:05P [id number] Procedure Note Provider, MD Singh - 10/11/2016 CONCHITA GUERRA M.D. MIREYA AGUILAR M.D. FINAL REPORT The radiology attending physician has personally reviewed this study, and has reviewed and/or edited this written report and agrees with it. ACC# Date Time Exam [id number] Jan 24, 2014 17:07:00 [id number] MRI Cervical Spn wo&wi con [id number] Jan 24, 2014 17:07:00 [id number] MRI ThoracicSpn wo&wi cont [id number] Jan 24, 2014 17:07:00 [id number] MRI Lumbar Spn wo&wi cont EXAMINATION: 1.Cervical spine MRI without and with contrast. 2. Thoracic spine MRI without and with contrast. 3. Lumbar spine MRI without and with contrast. HISTORY: Meningioma TECHNIQUE: 1.Multi-planar multi-weighted magnetic resonance imaging of the cervical spine was performed without and withadministration of intravenous contrast using the standard cervical spine protocol. 2.Multi-planar multi-weighted magnetic resonance imaging of the thoracic spine was performed without and withadministration of intravenous contrast using the standard thoracic spine protocol. 3. Multiplanar multi-weighted magnetic resonance imaging of the lumbar spine was performed without and with administration of intravenous contrast using the standard lumbar spine protocol. Contrast information: Intravenous contrast used: Multihance 0.1mmol/kg 20 mL. Comparison: None available. FINDINGS: CERVICAL SPINE: Is mild C5 on C6 retrolisthesis. There are multilevel degenerative endplate changes of the lower cervical spine. No acute fracture is identified. However, if trauma is suspected, a CT scan would be a more sensitive examination for fractures. The spinal cord demonstrates normal signal intensity on all sequences. There is mild disc height loss in the lower cervical spine. No annular fissure is identified. No soft tissue abnormality is identified. Normal signal voids are present in the vertebral arteries. No abnormal areas of contrast enhancement are seen following administration of intravenous contrast. THORACIC SPINE: The thoracic spine is in the normal anatomic alignment. Vertebral bodies demonstrate normal signal intensity on all sequences. The spinal cord demonstrates normal signal intensity on all sequences. No soft tissue abnormality is identified. No soft tissue abnormality within the limited views of the chest and abdomen is identified.The aorta is normal. No abnormal areas of enhancement are identified following administration of intravenous contrast. LUMBAR SPINE: There is grade one anterolisthesis of L4 on L5. Vertebral bodies are of normal height without compression fractures. There are scattered hemangiomas throughout the lumbar spine. The conus medullaris terminates at the level of T12-L1 and the distal spinal cord signal intensity is normal. Intervertebral discs show normal height and T2 signal intensity. Annular fissures are not identified. there is severe central canal stenosis at L4-L5. No abnormal areas of enhancement are identified following administration of intravenous contrast. IMPRESSION: 1. Diffuse degenerative changes of the lower cervical, thoracic, and lumbar spine with marked spinal stenosis at L4-L5. There is no cord signal abnormality. Requested By: Dictated By: MIREYA AGUILAR M.D. on Jan 25 2014 10:33A This document has been electronically signed by: CONCHITA GUERRA M.D. on Jan 27 2014 1:05P [id number] us Historical Provider MD [facility] MRI PROCEDURES Final Result * MRI Cervical Spine WWO Contrast (01/24/2014 5:07 PM CDT) Anatomical Region Laterality Modality Spine N/A Magnetic Resonan ce 01/24/2014 5:07 PM CDT Narrative 01/27/2014 1:08 PM CDT CONCHITA GUERRA M.D. MIREYA AGUILAR M.D. FINAL REPORT The radiology attending physician has personally reviewed this study, and has reviewed and/or edited this written report and agrees with it. ACC# ??Date Time ??Exam [id number] Jan 24, 2014 17:07:00 [id number] MRI Cervical Spn wo&wi con [id number] Jan 24, 2014 17:07:00 [id number] MRI ThoracicSpn wo&wi cont [id number] Jan 24, 2014 17:07:00 [id number] MRI Lumbar Spn wo&wi cont EXAMINATION: ?? 1.Cervical spine MRI without and with contrast. 2. Thoracic spine MRI without ??and with contrast. 3. Lumbar spine MRI without ??and with contrast. HISTORY: Meningioma TECHNIQUE: 1.Multi-planar multi-weighted magnetic resonance imaging of the cervical spine was performed without and withadministration of intravenous contrast using the standard cervical spine protocol. 2.Multi-planar multi-weighted magnetic resonance imaging of the thoracic spine was performed without and withadministration of intravenous contrast using the standard thoracic spine protocol. 3. Multiplanar multi-weighted magnetic resonance imaging of the lumbar spine was performed without and with administration of intravenous contrast using the standard lumbar spine protocol. Contrast information: Intravenous contrast used: Multihance 0.1mmol/kg 20 mL. Comparison: ??None available. FINDINGS: CERVICAL SPINE: Is mild C5 on C6 retrolisthesis. There are multilevel degenerative endplate changes of the lower cervical spine. No acute fracture is identified. ??However, if trauma is suspected, a CT scan would be a more sensitive examination for fractures. The spinal cord demonstrates normal signal intensity on all sequences. ??There is mild disc height loss in the lower cervical spine. No annular fissure is identified. ??No soft tissue abnormality is identified. Normal signal voids are present in the vertebral arteries. No abnormal areas of contrast enhancement are seen following administration of intravenous contrast. THORACIC SPINE: The thoracic spine is in the normal anatomic alignment. Vertebral bodies demonstrate normal signal intensity on all sequences. ??The spinal cord demonstrates normal signal intensity on all sequences. ??No soft tissue abnormality is identified. ??No soft tissue abnormality within the limited views of the chest and abdomen is identified.The aorta is normal. No abnormal areas of enhancement are identified following administration of intravenous contrast. LUMBAR SPINE: There is grade one anterolisthesis of L4 on L5. Vertebral bodies are of normal height without compression fractures. There are scattered hemangiomas throughout the lumbar spine. The conus medullaris terminates at the level of T12-L1 ??and the distal spinal cord signal intensity is normal. Intervertebral discs show normal height and T2 signal intensity. Annular fissures are not identified. there is severe central canal stenosis at L4-L5. No abnormal areas of enhancement are identified following administration of intravenous contrast. IMPRESSION: ?? 1. ??Diffuse degenerative changes of the lower cervical, thoracic, and lumbar spine with marked spinal stenosis at L4-L5. There is no cord signal abnormality. Requested By: Dictated By: ?? MIREYA AGUILAR M.D. ??on Jan 25 2014 10:33A This document has been electronically signed by: CONCHITA GUERRA M.D. on Jan 27 2014 ??1:05P [id number] Procedure Note Provider, MD Singh - 10/11/2016 CONCHITA GUERRA M.D. MIREYA AGUILAR M.D. FINAL REPORT The radiology attending physician has personally reviewed this study, and has reviewed and/or edited this written report and agrees with it. ACC# Date Time Exam [id number] Jan 24, 2014 17:07:00 [id number] MRI Cervical Spn wo&wi con [id number] Jan 24, 2014 17:07:00 [id number] MRI ThoracicSpn wo&wi cont [id number] Jan 24, 2014 17:07:00 [id number] MRI Lumbar Spn wo&wi cont EXAMINATION: 1.Cervical spine MRI without and with contrast. 2. Thoracic spine MRI without and with contrast. 3. Lumbar spine MRI without and with contrast. HISTORY: Meningioma TECHNIQUE: 1.Multi-planar multi-weighted magnetic resonance imaging of the cervical spine was performed without and withadministration of intravenous contrast using the standard cervical spine protocol. 2.Multi-planar multi-weighted magnetic resonance imaging of the thoracic spine was performed without and withadministration of intravenous contrast using the standard thoracic spine protocol. 3. Multiplanar multi-weighted magnetic resonance imaging of the lumbar spine was performed without and with administration of intravenous contrast using the standard lumbar spine protocol. Contrast information: Intravenous contrast used: Multihance 0.1mmol/kg 20 mL. Comparison: None available. FINDINGS: CERVICAL SPINE: Is mild C5 on C6 retrolisthesis. There are multilevel degenerative endplate changes of the lower cervical spine. No acute fracture is identified. However, if trauma is suspected, a CT scan would be a more sensitive examination for fractures. The spinal cord demonstrates normal signal intensity on all sequences. There is mild disc height loss in the lower cervical spine. No annular fissure is identified. No soft tissue abnormality is identified. Normal signal voids are present in the vertebral arteries. No abnormal areas of contrast enhancement are seen following administration of intravenous contrast. THORACIC SPINE: The thoracic spine is in the normal anatomic alignment. Vertebral bodies demonstrate normal signal intensity on all sequences. The spinal cord demonstrates normal signal intensity on all sequences. No soft tissue abnormality is identified. No soft tissue abnormality within the limited views of the chest and abdomen is identified.The aorta is normal. No abnormal areas of enhancement are identified following administration of intravenous contrast. LUMBAR SPINE: There is grade one anterolisthesis of L4 on L5. Vertebral bodies are of normal height without compression fractures. There are scattered hemangiomas throughout the lumbar spine. The conus medullaris terminates at the level of T12-L1 and the distal spinal cord signal intensity is normal. Intervertebral discs show normal height and T2 signal intensity. Annular fissures are not identified. there is severe central canal stenosis at L4-L5. No abnormal areas of enhancement are identified following administration of intravenous contrast. IMPRESSION: 1. Diffuse degenerative changes of the lower cervical, thoracic, and lumbar spine with marked spinal stenosis at L4-L5. There is no cord signal abnormality. Requested By: Dictated By: MIREYA AGUILAR M.D. on Jan 25 2014 10:33A This document has been electronically signed by: CONCHITA GUERRA M.D. on Jan 27 2014 1:05P [id number] us Historical Provider MD [facility] MRI PROCEDURES Final Result * MRI Lumbar Spine WWO Contrast (01/24/2014 5:07 PM CDT) Anatomical Region Laterality Modality Spine N/A Magnetic Resonan ce 01/24/2014 5:07 PM CDT Narrative 01/27/2014 1:08 PM CDT CONCHITA GUERRA M.D. MIREYA AGUILAR M.D. FINAL REPORT The radiology attending physician has personally reviewed this study, and has reviewed and/or edited this written report and agrees with it. ACC# ??Date Time ??Exam [id number] Jan 24, 2014 17:07:00 [id number] MRI Cervical Spn wo&wi con [id number] Jan 24, 2014 17:07:00 [id number] MRI ThoracicSpn wo&wi cont [id number] Jan 24, 2014 17:07:00 [id number] MRI Lumbar Spn wo&wi cont EXAMINATION: ?? 1.Cervical spine MRI without and with contrast. 2. Thoracic spine MRI without ??and with contrast. 3. Lumbar spine MRI without ??and with contrast. HISTORY: Meningioma TECHNIQUE: 1.Multi-planar multi-weighted magnetic resonance imaging of the cervical spine was performed without and withadministration of intravenous contrast using the standard cervical spine protocol. 2.Multi-planar multi-weighted magnetic resonance imaging of the thoracic spine was performed without and withadministration of intravenous contrast using the standard thoracic spine protocol. 3. Multiplanar multi-weighted magnetic resonance imaging of the lumbar spine was performed without and with administration of intravenous contrast using the standard lumbar spine protocol. Contrast information: Intravenous contrast used: Multihance 0.1mmol/kg 20 mL. Comparison: ??None available. FINDINGS: CERVICAL SPINE: Is mild C5 on C6 retrolisthesis. There are multilevel degenerative endplate changes of the lower cervical spine. No acute fracture is identified. ??However, if trauma is suspected, a CT scan would be a more sensitive examination for fractures. The spinal cord demonstrates normal signal intensity on all sequences. ??There is mild disc height loss in the lower cervical spine. No annular fissure is identified. ??No soft tissue abnormality is identified. Normal signal voids are present in the vertebral arteries. No abnormal areas of contrast enhancement are seen following administration of intravenous contrast. THORACIC SPINE: The thoracic spine is in the normal anatomic alignment. Vertebral bodies demonstrate normal signal intensity on all sequences. ??The spinal cord demonstrates normal signal intensity on all sequences. ??No soft tissue abnormality is identified. ??No soft tissue abnormality within the limited views of the chest and abdomen is identified.The aorta is normal. No abnormal areas of enhancement are identified following administration of intravenous contrast. LUMBAR SPINE: There is grade one anterolisthesis of L4 on L5. Vertebral bodies are of normal height without compression fractures. There are scattered hemangiomas throughout the lumbar spine. The conus medullaris terminates at the level of T12-L1 ??and the distal spinal cord signal intensity is normal. Intervertebral discs show normal height and T2 signal intensity. Annular fissures are not identified. there is severe central canal stenosis at L4-L5. No abnormal areas of enhancement are identified following administration of intravenous contrast. IMPRESSION: ?? 1. ??Diffuse degenerative changes of the lower cervical, thoracic, and lumbar spine with marked spinal stenosis at L4-L5. There is no cord signal abnormality. Requested By: Dictated By: ?? MIREYA AGUILAR M.D. ??on Jan 25 2014 10:33A This document has been electronically signed by: CONCHITA GUERRA M.D. on Jan 27 2014 ??1:05P [id number] Procedure Note Provider, MD Singh - 10/11/2016 CONCHITA GUERRA M.D. MIREYA AGUILAR M.D. FINAL REPORT The radiology attending physician has personally reviewed this study, and has reviewed and/or edited this written report and agrees with it. ACC# Date Time Exam [id number] Jan 24, 2014 17:07:00 [id number] MRI Cervical Spn wo&wi con [id number] Jan 24, 2014 17:07:00 [id number] MRI ThoracicSpn wo&wi cont [id number] Jan 24, 2014 17:07:00 [id number] MRI Lumbar Spn wo&wi cont EXAMINATION: 1.Cervical spine MRI without and with contrast. 2. Thoracic spine MRI without and with contrast. 3. Lumbar spine MRI without and with contrast. HISTORY: Meningioma TECHNIQUE: 1.Multi-planar multi-weighted magnetic resonance imaging of the cervical spine was performed without and withadministration of intravenous contrast using the standard cervical spine protocol. 2.Multi-planar multi-weighted magnetic resonance imaging of the thoracic spine was performed without and withadministration of intravenous contrast using the standard thoracic spine protocol. 3. Multiplanar multi-weighted magnetic resonance imaging of the lumbar spine was performed without and with administration of intravenous contrast using the standard lumbar spine protocol. Contrast information: Intravenous contrast used: Multihance 0.1mmol/kg 20 mL. Comparison: None available. FINDINGS: CERVICAL SPINE: Is mild C5 on C6 retrolisthesis. There are multilevel degenerative endplate changes of the lower cervical spine. No acute fracture is identified. However, if trauma is suspected, a CT scan would be a more sensitive examination for fractures. The spinal cord demonstrates normal signal intensity on all sequences. There is mild disc height loss in the lower cervical spine. No annular fissure is identified. No soft tissue abnormality is identified. Normal signal voids are present in the vertebral arteries. No abnormal areas of contrast enhancement are seen following administration of intravenous contrast. THORACIC SPINE: The thoracic spine is in the normal anatomic alignment. Vertebral bodies demonstrate normal signal intensity on all sequences. The spinal cord demonstrates normal signal intensity on all sequences. No soft tissue abnormality is identified. No soft tissue abnormality within the limited views of the chest and abdomen is identified.The aorta is normal. No abnormal areas of enhancement are identified following administration of intravenous contrast. LUMBAR SPINE: There is grade one anterolisthesis of L4 on L5. Vertebral bodies are of normal height without compression fractures. There are scattered hemangiomas throughout the lumbar spine. The conus medullaris terminates at the level of T12-L1 and the distal spinal cord signal intensity is normal. Intervertebral discs show normal height and T2 signal intensity. Annular fissures are not identified. there is severe central canal stenosis at L4-L5. No abnormal areas of enhancement are identified following administration of intravenous contrast. IMPRESSION: 1. Diffuse degenerative changes of the lower cervical, thoracic, and lumbar spine with marked spinal stenosis at L4-L5. There is no cord signal abnormality. Requested By: Dictated By: MIREYA AGUILAR M.D. on Jan 25 2014 10:33A This document has been electronically signed by: CONCHITA GUERRA M.D. on Jan 27 2014 1:05P [id number] us Historical Provider MD [facility] MRI PROCEDURES Final Result * Blood creatinine, point of care (01/24/2014 2:42 PM CDT) Creatinine, POC, bld 1.0 0.6 - 1.1 mg/dl HISTORICAL RESULTS Blood specimen (specimen) 01/24/2014 2:42 PM CDT us Eugene Hyde MD LAB BLOOD ORDERABLES Fany jatin Result HISTORICAL RESULTS * Discharge Laboratory Cumulative Report (01/24/2014 12:00 AM CDT) 01/24/2014 Narrative HISTORICAL RESULTS - 01/24/2014 3:23 PM CDT ?[facility] ?Department of Laboratories ? [address] [facility] [place] ? [place] [address] Patient Name: ??MIKKI DALTON Alis [facility] Rec Number: [id number] Fin Number: ?[id number] Date: ?1955 Sex/Age: ? Female 58 years Admit Date: ?01/24/2014 Discharge Date: 01/24/2014 Doctor: ?Eugene Hyde Facility: ?[facility] Location: ?[facility] Chart Printed: 01/24/2014 15:23 ?? * Abnormal ?? C Critical ?? f Footnote ?? ^ Corrected ?? L Low ?? H High ? i Interp Data ?? @ Reference Lab ?Chart Type:Cumulative ?POINT OF CARE TESTS ? Chemistry ?Test: Creat iPOC ? Reference: [0.6-1.1] ? Units: mg/dL 01/24/2014 ?? 14:42:00 ?? 1.0 us Historical Provider LAB BLOOD ORDERABLES Fany jatin Result HISTORICAL RESULTS documented in this encounter Visit Diagnoses Diagnosis Benign neoplasm of cerebral meninges (HCC) Benign neoplasm of cerebral meninges documented in this encounter
--- OUTSIDE RECORDS SUMMARY | 2024-06-20 04:24 | XMS_ITS | Encounter Summary ---
Author Organization [facility] Care Team Providers Care Manager Bilingual Name Role Phone Unavailable Primary Care Provider Unavailabl e Encounter Details Date Type Department Care Team (Late st Contact Info) Description 07/09/2015 - 07/09/2015 11:59 PM POWER PRESS TENDER Hospital Encounter [facility] Eugene Gabriel MD [address] [place] [address] DR DEPT NEUROSURGERY, [place] [address] Spinal stenosis of cervical region; Other cervical disc degeneration, unspecified cervical region Social History Tobacco Use Types Packs/Day Years Used Date Smoking Tobacco: Every Day Comments Unknown Sex and Gender Information Value Date Recorded Sex Assigned at Not on file Legal Sex Female 4:40 AM POWER PRESS TENDER Gender Identity Not on file Sexual Orientation Not on file documented as of this encounter Plan of Treatment Not on file documented as of this encounter Procedures Procedure Name Priority Date/Time Associated Diagnosis Comments XR SPINE CERVICAL COMPLETE 4 OR 5 VW Routine 07/09/2015 10:48 AM POWER PRESS TENDER MRI CERVICAL SPINE W WO CONTRAST Routine 07/09/2015 9:41 AM POWER PRESS TENDER documented in this encounter Results * XR Spine Cervical Complete 4 Or 5 View (07/09/2015 10:48 AM POWER PRESS TENDER) Anatomical Region Laterality Modality Spine N/A Radiographic Danielle ging 07/09/2015 10:4 8 AM POWER PRESS TENDER Narrative 07/09/2015 1:26 PM POWER PRESS TENDER ANDRÉS VALADEZ M.D. GAY EDWARDS M.D. FINAL REPORT The radiology attending physician has personally reviewed this study, and has reviewed and/or edited this written report and agrees with it. ACC# ??Date Time ??Exam [id number] Jul 09, 2015 10:48:00 [id number] Spine Cervical 4 or 5 vws ACC# ??Date Time ??Exam [id number] Jul 09, 2015 10:48:00 [id number] Spine Cervical 4 or 5 vws EXAMINATION: ?? Cervical spine 4 or 5 views. HISTORY: Cervical spondylosis. FINDINGS: 4 views of the cervical spine including flexion and extension views are submitted without prior for comparison. MRI of the cervical spine 07/01/2014 is reviewed. There is severe degenerative disc disease at C5-C7. The cervicothoracic junction is not well-visualized secondary to overlapping structures. There is mild degenerative disease at C2-C5. Upon flexion, mild anterolisthesis at C3-C4 and C4-C5 develops. In extension, there is development of mild retrolisthesis of C5 on C6. There is mild narrowing of the central canal at C5-C6, especially upon extension. The vertebral body heights are normal. There is no prevertebral soft tissue swelling. There is multilevel facet and uncovertebral arthropathy. ?? IMPRESSION: ?? Multilevel cervical degenerative disease worst and severe at C5-C7 with lower cervical osseous central canal stenosis. ?? Requested By: Dictated By: ?? GAY EDWARDS M.D. ??on Jul 09 2015 11:24A This document has been electronically signed by: ANDRÉS VALADEZ M.D. on Jul 09 2015 ??1:26P [id number] Procedure Note Provider, MD Singh - 10/11/2016 ANDRÉS VALADEZ M.D. GAY EDWARDS M.D. FINAL REPORT The radiology attending physician has personally reviewed this study, and has reviewed and/or edited this written report and agrees with it. ACC# Date Time Exam [id number] Jul 09, 2015 10:48:00 [id number] Spine Cervical 4 or 5 vws ACC# Date Time Exam [id number] Jul 09, 2015 10:48:00 [id number] Spine Cervical 4 or 5 vws EXAMINATION: Cervical spine 4 or 5 views. HISTORY: Cervical spondylosis. FINDINGS: 4 views of the cervical spine including flexion and extension views are submitted without prior for comparison. MRI of the cervical spine 07/01/2014 is reviewed. There is severe degenerative disc disease at C5-C7. The cervicothoracic junction is not well-visualized secondary to overlapping structures. There is mild degenerative disease at C2-C5. Upon flexion, mild anterolisthesis at C3-C4 and C4-C5 develops. In extension, there is development of mild retrolisthesis of C5 on C6. There is mild narrowing of the central canal at C5-C6, especially upon extension. The vertebral body heights are normal. There is no prevertebral soft tissue swelling. There is multilevel facet and uncovertebral arthropathy. IMPRESSION: Multilevel cervical degenerative disease worst and severe at C5-C7 with lower cervical osseous central canal stenosis. Requested By: Dictated By: GAY EDWARDS M.D. on Jul 09 2015 11:24A This document has been electronically signed by: ANDRÉS VALADEZ M.D. on Jul 09 2015 1:26P [id number] us Historical Provider MD [facility] XR PROCEDURES Final R esult * MRI Cervical Spine WWO Contrast (07/09/2015 9:41 AM POWER PRESS TENDER) Anatomical Region Laterality Modality Spine N/A Magnetic Resonan ce 07/09/2015 9:41 AM POWER PRESS TENDER Narrative 07/09/2015 3:06 PM POWER PRESS TENDER JESSICA FRANCO M.D. LADI DE LA GARZA M.D. FINAL REPORT The radiology attending physician has personally reviewed this study, and has reviewed and/or edited this written report and agrees with it. ACC# ??Date Time ??Exam [id number] Jul 09, 2015 09:41:00 [id number] MRI Cervical Spn wo&wi con EXAMINATION: ?? Magnetic resonance imaging (MRI) of the cervical spine without and with contrast HISTORY: Meningiomas TECHNIQUE: Multiplanar multi-weighted MRI of the cervical spine was performed without and with intravenous contrast using the standard cervical spine protocol. Contrast information: 22 mL Dotarem COMPARISON: 07/03/2015 and 01/24/2014 FINDINGS: There is mild anterolisthesis of C3 over C4 and C4 over C5. There is mild retrolisthesis of C5 over C6. Mild anterolisthesis of C7 over T1. Vertebral bodies demonstrate normal signal intensity on all sequences. No acute fracture is identified; however, if trauma is suspected, a CT scan would be a more sensitive examination for fractures. The craniocervical junction is normal. The visualized portions of the skull base and the posterior fossa are normal. The spinal cord demonstrates normal signal intensity on all sequences. There is diffuse mild degenerative disc disease. No soft tissue abnormality is identified. Normal signal voids are present in the vertebral arteries. There are no areas of abnormal contrast enhancement in the spinal cord. Mild enhancement centered in the left C3-C4, and to a lesser extent the right C3-C4 facet joints, is related to active arthritis. C2-C3: Disc configuration is normal. There is moderate bilateral facet osteoarthropathy. There is mild left uncovertebral joint disease. There is no spinal canal stenosis. There is mild left neuroforaminal stenosis. C3-C4: There is a small disc osteophyte complex. There is moderate bilateral facet osteoarthropathy. There is moderate left and mild right uncovertebral joint disease. There is no spinal canal stenosis. There is mild bilateral neuroforaminal stenosis. C4-C5: There is a small disc osteophyte complex. There is severe left and moderate right facet osteoarthropathy. There is moderate to severe left and mild right uncovertebral joint disease. There is mild spinal canal stenosis. There is moderate left and mild right neuroforaminal stenosis. C5-C6: There is a small disc osteophyte complex. There is moderate left and mild right facet osteoarthropathy. There is severe right and moderate left uncovertebral joint disease. There is mild spinal canal stenosis. There is moderate to severe right and mild to moderate left neuroforaminal stenosis. C6-C7: There is a small disc osteophyte complex. There is mild bilateral facet osteoarthropathy. There is severe left and moderate right uncovertebral joint disease. There is mild spinal canal stenosis. There is moderate to severe left and moderate right neuroforaminal stenosis. C7-T1: There is a small central disc protrusion. There is moderate bilateral facet osteoarthropathy. There is mild to moderate bilateral uncovertebral joint disease. There is no spinal canal stenosis. There is mild left neuroforaminal stenosis. Compared with 01/24/2014, degenerative findings are not changed. IMPRESSION: ?? 1. Normal spinal cord. 2. Multilevel degenerative changes of the cervical spine as described in detail above, unchanged since a 01/24/2014. Requested By: Dictated By: ?? LADI DE LA GARZA M.D. ??on Jul 09 2015 ??1:48P This document has been electronically signed by: JESSICA FRANCO M.D. on Jul 09 2015 ??3:06P [id number] Procedure Note Provider, MD Singh - 10/11/2016 JESSICA FRANCO M.D. LADI DE LA GARZA M.D. FINAL REPORT The radiology attending physician has personally reviewed this study, and has reviewed and/or edited this written report and agrees with it. ACC# Date Time Exam [id number] Jul 09, 2015 09:41:00 [id number] MRI Cervical Spn wo&wi con EXAMINATION: Magnetic resonance imaging (MRI) of the cervical spine without and with contrast HISTORY: Meningiomas TECHNIQUE: Multiplanar multi-weighted MRI of the cervical spine was performed without and with intravenous contrast using the standard cervical spine protocol. Contrast information: 22 mL Dotarem COMPARISON: 07/03/2015 and 01/24/2014 FINDINGS: There is mild anterolisthesis of C3 over C4 and C4 over C5. There is mild retrolisthesis of C5 over C6. Mild anterolisthesis of C7 over T1. Vertebral bodies demonstrate normal signal intensity on all sequences. No acute fracture is identified; however, if trauma is suspected, a CT scan would be a more sensitive examination for fractures. The craniocervical junction is normal. The visualized portions of the skull base and the posterior fossa are normal. The spinal cord demonstrates normal signal intensity on all sequences. There is diffuse mild degenerative disc disease. No soft tissue abnormality is identified. Normal signal voids are present in the vertebral arteries. There are no areas of abnormal contrast enhancement in the spinal cord. Mild enhancement centered in the left C3-C4, and to a lesser extent the right C3-C4 facet joints, is related to active arthritis. C2-C3: Disc configuration is normal. There is moderate bilateral facet osteoarthropathy. There is mild left uncovertebral joint disease. There is no spinal canal stenosis. There is mild left neuroforaminal stenosis. C3-C4: There is a small disc osteophyte complex. There is moderate bilateral facet osteoarthropathy. There is moderate left and mild right uncovertebral joint disease. There is no spinal canal stenosis. There is mild bilateral neuroforaminal stenosis. C4-C5: There is a small disc osteophyte complex. There is severe left and moderate right facet osteoarthropathy. There is moderate to severe left and mild right uncovertebral joint disease. There is mild spinal canal stenosis. There is moderate left and mild right neuroforaminal stenosis. C5-C6: There is a small disc osteophyte complex. There is moderate left and mild right facet osteoarthropathy. There is severe right and moderate left uncovertebral joint disease. There is mild spinal canal stenosis. There is moderate to severe right and mild to moderate left neuroforaminal stenosis. C6-C7: There is a small disc osteophyte complex. There is mild bilateral facet osteoarthropathy. There is severe left and moderate right uncovertebral joint disease. There is mild spinal canal stenosis. There is moderate to severe left and moderate right neuroforaminal stenosis. C7-T1: There is a small central disc protrusion. There is moderate bilateral facet osteoarthropathy. There is mild to moderate bilateral uncovertebral joint disease. There is no spinal canal stenosis. There is mild left neuroforaminal stenosis. Compared with 01/24/2014, degenerative findings are not changed. IMPRESSION: 1. Normal spinal cord. 2. Multilevel degenerative changes of the cervical spine as described in detail above, unchanged since a 01/24/2014. Requested By: Dictated By: LADI DE LA GARZA M.D. on Jul 09 2015 1:48P This document has been electronically signed by: JESSICA FRANCO M.D. on Jul 09 2015 3:06P [id number] Historical Provider MD [facility] MRI PROCEDURES Final Result documented in this encounter Visit Diagnoses Diagnosis Spinal stenosis of cervical region Spinal stenosis in cervical region Other cervical disc degeneration, unspecified cervical region documented in this encounter
--- OUTSIDE RECORDS SUMMARY | 2024-06-20 04:24 | XMS_ITS | Encounter Summary ---
Author Organization [facility] [employer] [facility] Address [address] [place] [address] Phone Care Team Providers Care Power Plant Inspector Name Role Phone Eugene Moore MD Primary Care Provider [phone] Reason for Referral * Diagnostic Imaging (Routine) - Closed Specialty Diagnoses / Procedures Referred By Kenneth gómez Referred To Contact Radiology Diagnoses Benign neoplasm of cerebral meninges (HCC) Procedures MRI Brain W WO Contrast Shania Mcmullen NP Phone: tel: fax: [address] [address] Referral ID Status Reason Start Date Expiration Date Visits Re quested Visits Authorized [id number] Closed 08/01/2018 02/10/2020 1 1 NISTRATIVE APPEALS TRIBUNAL MEMBER Encounter Details Date Type Department Care Team (Late st Contact Info) Description 08/01/2018 Orders Only [facility] Neurosurgery [address] [facility] Advanced [facility] [address]th [place] [address] [place] [id number] Shania Mcmullen NP [address] [facility] [address] [place] [id number] Benign neoplasm of cerebral meninges (CMS/HCC) (Primary Dx) Social History Tobacco Use Types Packs/Day Years Used Date Smoking Tobacco: Every Day Comments Unknown Sex and Gender Information Value Date Recorded Sex Assigned at Not on file Legal Sex Female 4:40 AM ADMINISTRATIVE APPEALS TRIBUNAL MEMBER Gender Identity Not on file Sexual Orientation Not on file documented as of this encounter Plan of Treatment Not on file documented as of this encounter Results * MRI Brain W WO Contrast (08/16/2018 9:35 AM ADMINISTRATIVE APPEALS TRIBUNAL MEMBER) Anatomical Region Laterality Modality Head and Neck N/A Magnetic Resonan ce 08/16/2018 1:55 PM ADMINISTRATIVE APPEALS TRIBUNAL MEMBER Impressions 08/16/2018 4:34 PM ADMINISTRATIVE APPEALS TRIBUNAL MEMBER Stable right parietal, left frontal, and left vertex meningiomas. Dictated by: Oliver Walters Electronically signed by: Jose Lee M.D, PHD Narrative 08/16/2018 4:34 PM ADMINISTRATIVE APPEALS TRIBUNAL MEMBER EXAMINATION: Magnetic resonance imaging (MRI) of the brain and brainstem without and with contrast HISTORY: 63-year-old female with history of meningiomas on MRI surveillance. TECHNIQUE: Multiplanar multi-weighted MRI of the brain and brainstem was performed without and with ??intravenous contrast using the brain tumor protocol. This included high-resolution T1-weighted images with intravenous contrast and data for perfusion analysis. Contrast information: 25 mL Dotarem COMPARISON: MRI dated 08/18/2017 FINDINGS: Redemonstrated multiple extra axial dural based enhancing lesions at the right parietal, left frontal, and left vertex consistent with meningiomas. ??The right parietal meningioma again measures 2.2 x 1.9 cm. ??The left frontal meningioma measures approximately 1.6 x 0.6 cm. The left vertex meningioma measures 1.5 x 1.2 cm. These are unchanged in size and characteristics. ??There is susceptibility indicating calcifications. The superior sagittal sinus demonstrates normal venous [...] carotid arteries and basilar artery. Procedure Note Jose Lee MD PhD - 08/16/2018 EXAMINATION: Magnetic resonance imaging (MRI) of the brain and brainstem without and with contrast HISTORY: 63-year-old female with history of meningiomas on MRI surveillance. TECHNIQUE: Multiplanar multi-weighted MRI of the brain and brainstem was performed without and with intravenous contrast using the brain tumor protocol. This included high-resolution T1-weighted images with intravenous contrast and data for perfusion analysis. Contrast information: 25 mL Dotarem COMPARISON: MRI dated 08/18/2017 FINDINGS: Redemonstrated multiple extra axial dural based enhancing lesions at the right parietal, left frontal, and left vertex consistent with meningiomas. The right parietal meningioma again measures 2.2 x 1.9 cm. The left frontal meningioma measures approximately 1.6 x 0.6 cm. The left vertex meningioma measures 1.5 x 1.2 cm. These are unchanged in size and characteristics. There is susceptibility indicating calcifications. The superior sagittal sinus demonstrates normal venous [...] carotid arteries and basilar artery. IMPRESSION: Stable right parietal, left frontal, and left vertex meningiomas. Dictated by: Oliver Walters Electronically signed by: Jose Lee M.D, PHD Shania Mcmullen NP IMG MRI PROCEDURES Final Resu lt documented in this encounter Visit Diagnoses Diagnosis Benign neoplasm of cerebral meninges (HCC)- Primary Benign neoplasm of cerebral meninges Benign neoplasm of cerebral meninges (HCC) Benign neoplasm of cerebral meninges documented in this encounter Care Teams Power Plant Inspector Relationship Specialty Start Date End Date Eugene Moore MD PCP - General 09/08/16 documented as of this encounter
--- OUTSIDE RECORDS SUMMARY | 2024-06-20 04:24 | XMS_ITS | Encounter Summary ---
Author Organization [facility] Care Team Providers Care Asthma Educator Name Role Phone Unavailable Primary Care Provider Unavailabl e Encounter Details Date Type Department Care Team (Late st Contact Info) Description 07/22/2016 1:00 PM ASSISTANT RESTAURANT GENERAL MANAGER - 07/22/2016 11:59 PM ASSISTANT RESTAURANT GENERAL MANAGER Hospital Encounter [facility] Eugene Gabriel MD [address] [place] [address] DR DEPT NEUROSURGERY, [place] [address] Social History Tobacco Use Types Packs/Day Years Used Date Smoking Tobacco: Every Day Comments Unknown Sex and Gender Information Value Date Recorded Sex Assigned at Not on file Legal Sex Female 4:40 AM ASSISTANT RESTAURANT GENERAL MANAGER Gender Identity Not on file Sexual Orientation Not on file documented as of this encounter Plan of Treatment Not on file documented as of this encounter Visit Diagnoses Not on filedocumented in this encounter
--- OUTSIDE RECORDS SUMMARY | 2024-06-20 04:24 | XMS_ITS | Encounter Summary ---
Author Organization [facility] Healthcare Address [address] [place] [address] Care Team Providers Care Tire Manager Name Role Phone Eugene Moore MD Primary Care Provider [phone] Reason for Referral * Diagnostic Imaging (Routine) - Closed Specialty Diagnoses / Procedures Referred By Kenneth gómez Referred To Contact Radiology Diagnoses Benign neoplasm of cerebral meninges (HCC) Procedures MRI Brain W WO Contrast Shania Mcmullen NP Phone: tel: fax: [address] [phone] Referral ID Status Reason Start Date Expiration Date Visits Re quested Visits Authorized [id number] Closed 08/01/2018 02/10/2020 1 1 NG TEACHER Reason for Visit * Diagnostic Imaging (Routine) - Closed Specialty Diagnoses / Procedures Referred By Kenneth gómez Referred To Contact Radiology Diagnoses Benign neoplasm of cerebral meninges (HCC) Procedures MRI Brain W WO Contrast Shania Mcmullen NP Phone: tel: fax: [address] [phone] Referral ID Status Reason Start Date Expiration Date Visits Re quested Visits Authorized [id number] Closed 08/01/2018 02/10/2020 1 1 Encounter Details Date Type Department Care Team (Latest Contact Info) Description 08/16/2018 8:17 AM TYPING TEACHER - 08/16/2018 11:59 PM TYPING TEACHER Hospital Encounter [facility] [address] [place] [address] Shania Mcmullen, LEATHA [address] [address] Benign neoplasm of cerebral meninges (CMS/HCC) Discharge Disposition: Discharge to home or self care Social History Tobacco Use Types Packs/Day Years Used Date Smoking Tobacco: Every Day Smokeless Tobacco: Never Alcohol Use Standard Drinks/Week Comments Yes 4 (1 standard drink = 0.6 oz pur e alcohol) Comments Unknown Sex and Gender Information Value Date Recorded Sex Assigned at Not on file Legal Sex Female 4:40 AM TYPING TEACHER Gender Identity Not on file Sexual [...] CONTRAST Schedule Routine, Read Routine (OP Routine) 08/16/2018 9:35 AM TYPING TEACHER Benign neoplasm of cerebral meninges (CMS/HCC) POCT CREATININE FOR CONTRAST EVALUATION Routine Gen Lab 08/16/2018 8:42 AM TYPING TEACHER documented in this encounter Results * MRI Brain W WO Contrast (08/16/2018 9:35 AM TYPING TEACHER) Anatomical Region Laterality Modality Head and Neck N/A Magnetic Resonan ce 08/16/2018 1:55 PM TYPING TEACHER Impressions 08/16/2018 4:34 PM TYPING TEACHER Stable right parietal, left frontal, and left vertex meningiomas. Dictated by: Oliver Walters Electronically signed by: Jose Lee M.D, PHD Narrative 08/16/2018 4:34 PM TYPING TEACHER EXAMINATION: Magnetic resonance imaging (MRI) of the [...] NP IMG MRI PROCEDURES Final Resu lt * POCT creatinine for contrast evaluation (08/16/2018 8:42 AM TYPING TEACHER) Creatinine POC 0.6 0.6 - 1.1 mg/dL [facility] Blood specimen (specimen) 08/16/2018 8:42 AM TYPING TEACHER 08/16/2018 8:42 AM TYPING TEACHER [facility]ative [facility] - 08/16/2018 9:09 AM TYPING TEACHER Shania Mcmullen NP POINT OF CARE TEST ORDERABLES Final Result [facility] Department [place] [address] documented in this encounter Visit Diagnoses Diagnosis Benign neoplasm of cerebral meninges (HCC) Benign neoplasm of cerebral meninges documented in this encounter Administered Medications Inactive Administered Medications - up to 3 most recent administrations Medication Order MAR Action Action Date Dose Rate Site gadoterate meglumine (DOTAREM) 0.5 mmol/mL injection 10 mL 10 mL, intravenous, Once in imaging, contrast, Starting on Marcela 08/16/18 at 0929, For 1 dose Given 08/16/2018 9:30 AM TYPING TEACHER 10 mL gadoterate meglumine (DOTAREM) 0.5 mmol/mL injection 15 mL 15 mL, intravenous, Once in imaging, contrast, Starting on Marcela 08/16/18 at 0928, For 1 dose Given 08/16/2018 9:30 AM TYPING TEACHER 15 mL documented in this encounter Care Teams Tire Manager Relationship Specialty Start Date End Date Eugene Moore MD PCP - General 09/08/16 documented as of this encounter
--- OUTSIDE RECORDS SUMMARY | 2024-06-20 04:24 | XMS_ITS | Encounter Summary ---
Author Organization [facility] Healthcare Address [address] [place] [address] Care Team Providers Care Grocery Associate Name Role Phone Eugene Moore MD Primary Care Provider [phone] Encounter Details Date Type Department Care Team (Latest Contact Info) Description 08/18/2017 8:43 AM HAND MICA PLATE LAYER - 08/18/2017 11:59 PM HAND MICA PLATE LAYER Hospital Encounter [facility] OP INTERIM [phone] Eugene Greenwood MD [address] [place] [address] DR DEPT NEUROSURGERY, [place] [address] Discharge Disposition: Discharge to home or self care Social History Tobacco Use Types Packs/Day Years Used Date Smoking Tobacco: Every Day Comments Unknown Sex and Gender Information Value Date Recorded Sex Assigned at Not on file Legal Sex Female 4:40 AM HAND MICA PLATE LAYER Gender Identity Not on file Sexual Orientation Not on file documented as of this encounter Discharge Disposition Disposition Code Departure Means Destination Discharge to home or self care documented in this encounter Plan of Treatment Not on file documented as of this encounter Procedures Procedure Name Priority Date/Time Associated Diagnosis Comments MRI BRAIN W WO CONTRAST Routine 08/18/2017 4:15 PM HAND MICA PLATE LAYER POCT CREATININE FOR CONTRAST EVALUATION Routine Gen Lab 08/18/2017 9:22 AM HAND MICA PLATE LAYER documented in this encounter Results * MRI Brain W WO Contrast (08/18/2017 4:15 PM HAND MICA PLATE LAYER) Anatomical Region Laterality Modality Head and Neck N/A Magnetic Resonan ce 08/18/2017 4:15 PM HAND MICA PLATE LAYER Narrative 08/18/2017 6:29 PM HAND MICA PLATE LAYER Janee MONTANA M.D. FINAL REPORT The radiology attending physician has personally reviewed this study, and has reviewed and/or edited this written report and agrees with it. ACC# ??Date Time ??Exam [id number] Aug 18, 2017 10:15:00 [id number] MRI Brain wo& with contrast EXAMINATION: ??Magnetic resonance imaging (MRI) of the brain and brainstem without and with contrast HISTORY: Meningioma follow-up. TECHNIQUE: Multiplanar multi-weighted MRI of the brain and brainstem was performed without and with ??intravenous contrast using the brain tumor protocol. This included high-resolution T1-weighted images with intravenous contrast and data for perfusion analysis. Contrast information: 26 mL Dotarem COMPARISON: 09/08/2016 FINDINGS: There is no significant change to the multiple extra axial dural based enhancing lesions at the right parietal, left frontal, and left vertex meningiomas. ??The right parietal meningioma again measures 2.2 x 1.9 cm. ??The left frontal meningioma measures approximately 1.6 x 0.6 cm. ??The left vertex meningioma measures 1.5 x 1.2 cm. ??There is susceptibility indicating calcifications. The superior [...] the carotid arteries and basilar artery. IMPRESSION: ??No change to the right parietal, left frontal, and left vertex meningiomas. Electronically signed by: Yogi Valdes M.D. Requested By: EUGENE GREENWOOD M.D. Dictated By: ?? TENA WARNER M.D. ??on Aug 11:55A This document has been electronically signed by: YOGI VALDES M.D. on Aug 12:27P [id number] MONTANA M.D. FINAL REPORT The radiology attending physician has personally reviewed this study, and has reviewed and/or edited this written report and agrees with it. Attending: ??TIMO, ??EUGENE Requesting: ??TIMO, ??EUGENE Requesting Fax: ?? Attending Fax: ?? Attending ID: ??[id number] Requesting ID: ??[id number] Report To 1 ID: ??[id number] ? Report To 1 Name: ??, ?? Report To 1 FAX: ?? NextGen Order #: ?? Procedure Note Miscellaneous, Not In File - 08/18/2017 YOGI VALDES M.D. TENA WARNER M.D. FINAL REPORT The radiology attending physician has personally reviewed this study, and has reviewed and/or edited this written report and agrees with it. ACC# Date Time Exam [id number] Aug 18, 2017 10:15:00 [id number] MRI Brain wo& with contrast EXAMINATION: Magnetic resonance imaging (MRI) of the brain and brainstem without and with contrast HISTORY: Meningioma follow-up. TECHNIQUE: Multiplanar multi-weighted MRI of the brain and brainstem was performed without and with intravenous contrast using the brain tumor protocol. This included high-resolution T1-weighted images with intravenous contrast and data for perfusion analysis. Contrast information: 26 mL Dotarem COMPARISON: 09/08/2016 FINDINGS: There is no significant change to the multiple extra axial dural based enhancing lesions at the right parietal, left frontal, and left vertex meningiomas. The right parietal meningioma again measures 2.2 x 1.9 cm. The left frontal meningioma measures approximately 1.6 x 0.6 cm. The left vertex meningioma measures 1.5 x 1.2 cm. There is susceptibility indicating calcifications. The superior [...] the carotid arteries and basilar artery. IMPRESSION: No change to the right parietal, left frontal, and left vertex meningiomas. Electronically signed by: Yogi Valdes M.D. Requested By: EUGENE GREENWOOD M.D. Dictated By: TENA WARNER M.D. on Aug 18 2017 11:55A This document has been electronically signed by: YOGI VALDES M.D. on Aug 18 2017 12:27P [id number] MONTANA M.D. FINAL REPORT The radiology attending physician has personally reviewed this study, and has reviewed and/or edited this written report and agrees with it. Attending: EUGENE GREENWOOD Requesting: EUGENE GREENWOOD Requesting Fax: Attending Fax: Attending ID: [id number] Requesting ID: [id number] Report To 1 ID: [id number] Report To 1 Name: , Report To 1 FAX: NextGen Order #: [id number] Eugene Greenwood MD IMG MRI PROCEDURES Final Result * POCT creatinine for contrast evaluation (08/18/2017 9:22 AM HAND MICA PLATE LAYER) Creatinine POC 0.6 0.6 - 1.1 mg/dL [facility] Blood specimen (specimen) 08/18/2017 9:22 AM HAND MICA PLATE LAYER 08/18/2017 9:22 AM HAND MICA PLATE LAYER Narrative [facility] - 08/18/2017 9:41 AM HAND MICA PLATE LAYER Eugene Greenwood MD POINT OF CARE TEST ORDERA BLES Final Result [facility] [address] [place] [address] documented in this encounter Visit Diagnoses Not on filedocumented in this encounter Care Teams Grocery Associate Relationship Specialty Start Date End Date Eugene Moore MD PCP - General 09/08/16 documented as of this encounter
--- OUTSIDE RECORDS SUMMARY | 2024-06-20 04:24 | XMS_ITS | Encounter Summary ---
Author Organization [facility] Address [address] [place] [address] Phone Care Team Providers Care Muff Winder Name Role Phone Eugene Moore MD Primary Care Provider [phone] Encounter Details Date Type Department Care Team (Late st Contact Info) Description 08/16/2018 11:00 AM THRESHING DEPARTMENT SUPERVISOR Office Visit [facility] Neurosurgery [address]th [place] [address] [place] [address] Shania Mcmullen NP [address] [facility] [address] [place] [address] Meningioma (CMS/HCC) (Primary Dx) Social History Tobacco Use Types Packs/Day Years Used Date Smoking Tobacco: Every Day Smokeless Tobacco: Never Tobacco Cessation:Counseling Given: Yes Alcohol Use Standard Drinks/Week Comments Yes 4 (1 standard drink = 0.6 oz pur e alcohol) Comments Unknown Sex and Gender Information Value Date Recorded Sex Assigned at Not on file Legal Sex Female 4:40 AM THRESHING DEPARTMENT SUPERVISOR Gender Identity Not on file Sexual Orientation Not on file documented as of this encounter Last Filed Vital Signs Vital Sign Reading Time Taken Comments Blood Pressure 135/90 08/16/2018 10:43 AM THRESHING DEPARTMENT SUPERVISOR Pulse 78 08/16/2018 10:43 AM THRESHING DEPARTMENT SUPERVISOR Temperature - - Respiratory Rate - - Oxygen Saturation - - Inhaled Oxygen Concentration - - Weight 140.6 kg (310 lb) 08/16/2018 10:43 AM THRESHING DEPARTMENT SUPERVISOR Height 160 cm (5' 3 ) 08/16/2018 10:43 AM THRESHING DEPARTMENT SUPERVISOR Body Mass Index 54.91 08/16/2018 10:43 AM THRESHING DEPARTMENT SUPERVISOR documented in this encounter Progress Notes * Shania Mcmullen, LEATHA - 08/16/2018 11:00 AM CST Images from the original note were not included. RETURN VISIT Subjective HISTORY OF PRESENT ILLNESS Mikki Dalton is a 63 y.o. female with a history of meningiomas for which we have been monitoring her with interval MRI scan since December of 2013. She comes in today for routine followup an MRI check. She does not complain of any new issues. No new issues with headaches. No new issues with vision. No new issues with coordination or balance. No bowel or bladder difficulties. She did unfortunately last year in August lose her . VITAL SIGNS BP 135/90 Pulse 78 Ht 160 cm (5' 3 ) Wt (!) 140.6 kg (310 lb) BMI 54.91 kg/m?? ALLERGIES She has No Known Allergies. MEDICATIONS Current Outpatient Medications: ??? albuterol HFA (VENTOLIN HFA) 90 mcg/actuation inhaler, , Disp: , Rfl: ??? amLODIPine (NORVASC) 10 mg tablet, , Disp: , Rfl: ??? aspirin 81 mg tablet, , Disp: , Rfl: ??? baclofen (LIORESAL) 20 mg tablet, , Disp: , Rfl: ??? cetirizine (ZyrTEC) 10 mg chewable tablet, , Disp: , Rfl: ??? citalopram (CeleXA) 10 mg tablet, , Disp: , Rfl: ??? ergocalciferol, vitamin D2, (VITAMIN D2 ORAL), Take by mouth ., Disp: , Rfl: ??? gabapentin ER (GRALISE) 300 mg tablet extended release 24 hr, , Disp: , Rfl: ??? losartan-hydrochlorothiazide (HYZAAR) 100-25 mg per tablet, , Disp: , Rfl: ??? montelukast (SINGULAIR) 10 mg tablet, , Disp: , Rfl: ??? nabumetone (RELAFEN) 750 mg tablet, , Disp: , Rfl: ??? simvastatin (ZOCOR) 40 mg tablet, , Disp: , Rfl: No current facility-administered medications for this visit. Objective PHYSICAL EXAM On exam she is awake alert oriented x3. Her pupils equal round reactive. Extraocular movements are intact. Cranial nerve exam 2-12 is intact. She is moving all of her extremities equally. She walks reasonably steady with the use of a cane. REVIEW OF IMAGING Review of her MRI that was completed earlier today shows right parietal, left frontal, and left vertex meningiomas Assessment/Plan PLAN Mikki Dalton is doing well from neurosurgery standpoint. Her imaging is stable. As discussed withher would like to see her back in 2 years with a repeat MRI or certainly sooner if any new issues arise. Shania Mcmullen NP Cosigned by Eugene Hyde MD at 08/17/2018 9:25 AM THRESHING DEPARTMENT SUPERVISOR SHING DEPARTMENT SUPERVISOR SHING DEPARTMENT SUPERVISOR documented in this encounter Plan of Treatment Not on file documented as of this encounter Visit Diagnoses Diagnosis Meningioma (HCC)- Primary Benign neoplasm of cerebral meninges documented in this encounter Discontinued Medications Medication Sig Discontinue Reason Start Date End Da te baclofen (LIORESAL) 10 mg tablet 08/16/2018 documented as of this encounter Historical Medications * This list may reflect changes made after this encounter. ergocalciferol, vitamin D2, (VITAMIN D2 ORAL) Take by mouth . added in this encounter Care Teams Muff Winder Relationship Specialty Start Date End Date Eugene Moore MD PCP - General 09/08/16 documented as of this encounter
--- OUTSIDE RECORDS SUMMARY | 2024-06-20 04:24 | XMS_ITS | Encounter Summary ---
Author Organization [facility] Healthcare Address [address] [place] [address] Care Team Providers Care Food Broker Name Role Phone Eugene Moore MD Primary Care Provider [phone] Encounter Details Date Type Department Care Team (Late st Contact Info) Description 08/09/2018 Orders Only Radiology [address] [place] [address] Gregorio Dixon MD [facility] [address] [facility] [address] [place] [address] Social History Tobacco Use Types Packs/Day Years Used Date Smoking Tobacco: Every Day Comments Unknown Sex and Gender Information Value Date Recorded Sex Assigned at Not on file Legal Sex Female 4:40 AM LAP CUTTER TRUER OPERATOR Gender Identity Not on file Sexual Orientation Not on file documented as of this encounter Plan of Treatment Not on file documented as of this encounter Visit Diagnoses Not on filedocumented in this encounter Care Teams Food Broker Relationship Specialty Start Date End Date Eugene Moore MD PCP - General 09/08/16 documented as of this encounter
--- OUTSIDE RECORDS SUMMARY | 2024-06-20 04:26 | XMS_ITS | Continuity of Care Document ---
Author Organization [facility] Address [address] [place] [address] Phone Care Team Providers Care Placement Secretary Name Role Phone Hilario Shook MD Unavailable Unavailable Advance Directives Directive Yes / No Effective Date File Name No Information Encounters Encounter Description Practice Location Reason(s) For Visit Diagnoses Date Provider Providers Copied on Encounter [facility], [address], [place], [place], [id number], tel:[phone] [facility] No Information Boone Rich. [address], [place], [place], [id number], [place]. tel:[phone] Referring Provider: [address], [place], [address]. tel:[phone] Family History Family Member Type Diagnosis Age At Onset No Information Payers Payer name Insurance type Covered republican ID Authoriza tion(s) BCBS INACTIVE OUT OF STATE [id number] Social History Type Description Quantity Date Captured Comments Sex Female Smoking Status No Information Chief Complaint And Reason For Visit No Information Reason For Referral Reason For Referral No Information History Of Present Illness Encounter Date Complaint History Of Prese nt Illness No Information Functional Status Date Functional Assessmen t No Information Instructions Date Instruction Additional Infor mation No Information Assessments Type Assessment Date No Information Patient Care Teams Name Effective Dates (start - stop) Status Members No Information
--- OUTSIDE RECORDS SUMMARY | 2024-07-09 08:22 | XMS_ITS | Referral Summary ---
Author Organization [facility] Address [address] [place] [address] Care Team Providers Care Retail Sales Advisor Name Role Phone Eugene Moore MD Primary Care Provider + [phone] Allergies No known active allergies Medications aspirin [...] on file Legal Sex Female 4:40 AM CLIENT SUPPORT ASSOCIATE Gender Identity Not on file Sexual Orientation Not on file Last Filed Vital Signs Vital Sign Reading Time Taken Comments Blood Pressure 135/90 08/16/2018 10:43 AM CLIENT SUPPORT ASSOCIATE Pulse 78 08/16/2018 10:43 AM CLIENT SUPPORT ASSOCIATE Temperature - - Respiratory Rate - - Oxygen Saturation - - Inhaled Oxygen Concentration - - Weight 140.6 kg (310 lb) 08/16/2018 10:43 AM CLIENT SUPPORT ASSOCIATE Height 160 cm (5' 3 ) 08/16/2018 10:43 AM CLIENT SUPPORT ASSOCIATE Body Mass Index 54.91 08/16/2018 10:43 AM CLIENT SUPPORT ASSOCIATE Plan of Treatment Not on file Insurance MEDICARE [facility] [employer] [facility] MEDICARE [facility] Care Teams Retail Sales Advisor Relationship Specialty Start Date End Date Eugene Moore MD PCP - General 09/08/16
--- OUTSIDE RECORDS SUMMARY | 2024-07-09 08:22 | XMS_ITS | CONTINUITY OF CARE DOCUMENT ---
Author Name faina eisenberg Address Unknown Organization [facility] Address [address] [place] [address] Phone [phone] Care Team Providers Care Account Receivable Associate Name Role Phone Antonio DIAS, Jm Jacob Unavailable [phone] MICHAEL RAND MD Unavailable MICHAEL RAND MD Unavailable INSURANCE PROVIDERS Payer name Policy type / Coverage type [place] red constitution party ID [facility] [id number]
--- OUTSIDE RECORDS SUMMARY | 2024-07-09 08:23 | XMS_ITS | Clinical Summary ---
Author Organization [facility] Address [address] [place] [address] Care Team Providers Care Brand Activation Manager Name Role Phone Eugene Moore MD Primary Care Provider + [phone] Allergies No known active allergies Medications aspirin [...] on file Legal Sex Female 4:40 AM ADOPTION COORDINATOR Gender Identity Not on file Sexual Orientation Not on file Obstetrics History Last Filed Vital Signs Vital Sign Reading Time Taken Comments Blood Pressure 135/90 08/16/2018 10:43 AM ADOPTION COORDINATOR Pulse 78 08/16/2018 10:43 AM ADOPTION COORDINATOR Temperature - - Respiratory Rate - - Oxygen Saturation - - Inhaled Oxygen Concentration - - Weight 140.6 kg (310 lb) 08/16/2018 10:43 AM ADOPTION COORDINATOR Height 160 cm (5' 3 ) 08/16/2018 10:43 AM ADOPTION COORDINATOR Body Mass Index 54.91 08/16/2018 10:43 AM ADOPTION COORDINATOR Plan of Treatment Health Maintenance Due Date [...] 03/21/2018, 03/14/2017, Additional history exists Insurance MEDICARE [facility] ACCESS Member Subscriber Plan / Payer (Ef fective 2018-Present) Name:Mikki Dalton Relation to Subscriber:Self Name:Mikki Dalton Payer ID:[id number] (NAIC) Type:[facility] Address: [address] [employer] [place] MEDICARE [employer] [facility] Care Teams Brand Activation Manager Relationship Specialty Start Date End Date Eugene Moore MD PCP - General 09/08/16
--- OUTSIDE RECORDS SUMMARY | 2024-07-09 08:23 | XMS_ITS | Data Portability ---
Author Organization [facility], Main Office Address [address] [place] [address] Assessment Encounter Date Assessment Date Assessment LastModified by Organization Details LastModified Time 01/16/2023 01/16/2023 Again told her to go as see the brain specialist as well so she can get her MRI and follow the meningioma. Otherwise blood work assessment plan and diagnosis assessment plan been discussed follow-up with me in 4 months continue current therapy Not available 01/17/2023 20:26:09 05/15/2023 05/15/2023 Will continue current therapy will follow-up in 4 months. Mammogram ordered [email or web address] Not available 05/15/2023 23:12:53 Plan of Treatment Reminders Order Date Submit Date Provider Last Modified By Organization Details Last Modified Time Details Appointments None recorded. Lab vitamin D, 25-hydrox y, total, serum 023 023 [email or web address] [facility] (Lab), [address] [place], [address], 4 11:01:55 HbA1c (hemoglob in A1c), blood 023 023 [email or web address] [facility] (Lab), [address] [place], [address], 4 11:01:55 CMP, serum or plasma 023 023 [email or web address] [facility] (Lab), [address] [place], [address], 3 18:15:52 CBC w/ auto diff 023 023 [email or web address] [facility] (Lab), [address] [place], [address], 3 18:02:51 lipid panel, serum 023 023 [email or web address] 25 [facility] (Lab), [address] [place], [address], 4 11:01:55 Referral None recorded. Procedures None [...] mmol/ L 137-14 5 low Not Available [facility] (Lab) [address] [place], [address], 09/23/2021 14:37:51 09/24/19 22 09/23/2021 COMPR EHENS CHRISTINA METAB OLIC PANEL potassium 4.5 mmol/ L 3.5-5. 1 Not Available [facility] (Lab) [address] [place], [address], 09/23/2021 14:37:51 09/24/19 22 09/23/2021 COMPR EHENS CHRISTINA METAB OLIC PANEL chloride 102 mmol/ L 98-107 Not Available [facility] (Lab) [address] [place], [address], 09/23/2021 14:37:51 09/24/19 22 09/23/2021 COMPR EHENS CHRISTINA METAB OLIC PANEL carbon dioxide 25 mmol/ L 22-30 Not Available [facility] (Lab) [address] [place], [address], 09/23/2021 14:37:51 09/24/19 22 09/23/2021 COMPR EHENS CHRISTINA METAB OLIC PANEL agap 13.5 mmol/ L 14-22 low Not Available [facility] (Lab) [address] [place], [address], 09/23/2021 14:37:51 09/24/19 22 09/23/2021 COMPR EHENS CHRISTINA METAB OLIC PANEL glucose 126 mg/dL 70-99 high Not Available [facility] (Lab) [address] [place], [address], 09/23/2021 14:37:51 09/24/19 22 09/23/2021 COMPR EHENS CHRISTINA METAB OLIC PANEL BUN 15 mg/dL 8-19 Not Available [facility] (Lab) [address] [place], [address], 09/23/2021 14:37:51 09/24/19 22 09/23/2021 COMPR EHENS CHRISTINA METAB OLIC PANEL creatinine 0.57 mg/dL 0.66-1 .25 low Not Available [facility] (Lab) [address] [place], [address], 09/23/2021 14:37:51 09/24/19 22 09/23/2021 COMPR EHENS CHRISTINA METAB OLIC PANEL GFR >60 Refer ence Range : [place] ge GFR Healt hy Adult : >60 [...] calcu lator is avail able on the [facility] websi te: [email or web address] :[email or web address] rg/pr ofess ional s/kdo qi/gf r_cal culat or Not Available [facility] (Lab) [address] [place], [address], 09/23/2021 14:37:51 09/24/19 22 09/23/2021 COMPR EHENS CHRISTINA METAB OLIC PANEL alkaline phosphatase 86 U/L 38-126 Not Available [facility] (Lab) [address] [place], [address], 09/23/2021 14:37:51 09/24/19 22 09/23/2021 COMPR EHENS CHRISTINA METAB OLIC PANEL alanine aminotransfe rase 14 U/L 0-35 Not Available [facility] (Lab) [address] [place], [address], 09/23/2021 14:37:51 09/24/19 22 09/23/2021 COMPR EHENS CHRISTINA METAB OLIC PANEL aspartate aminotransfe rase 18 U/L 15-37 Not Available [facility] (Lab) [address] [place], [address], 09/23/2021 14:37:51 09/24/19 22 09/23/2021 COMPR EHENS CHRISTINA METAB OLIC PANEL bilirubin, total 0.50 mg/dL 0.20-1 .30 Not Available [facility] (Lab) [address] [place], [address], 09/23/2021 14:37:51 09/24/19 22 09/23/2021 COMPR EHENS CHRISTINA METAB OLIC PANEL calcium 10.0 mg/dL 8.4-10 .2 Not Available [facility] (Lab) [address] [place], [address], 09/23/2021 14:37:51 09/24/19 22 09/23/2021 COMPR EHENS CHRISTINA METAB OLIC PANEL total protein 7.8 g/dL 6.3-8. 2 Not Available [facility] (Lab) [address] [place], [address], 09/23/2021 14:37:51 09/24/19 22 09/23/2021 COMPR EHENS CHRISTINA METAB OLIC PANEL albumin 4.4 g/dL 3.0-4. 4 Not Available [facility] (Lab) [address] [place], [address], 09/23/2021 14:37:51 09/24/19 22 09/23/2021 COMPR EHENS CHRISTINA METAB OLIC PANEL globulin 3.4 g/dL 2.6-4. 2 Not Available [facility] (Lab) [address] [place], [address], 09/23/2021 14:37:51 09/24/19 22 09/23/2021 COMPR EHENS CHRISTINA METAB OLIC PANEL A/G ratio 1.3 ratio 1.0-2. 0 Not Available [facility] (Lab) [address] [place], [address], 09/23/2021 14:37:51 09/24/19 22 09/23/2021 LIPID PANEL cholesterol 184 mg/dL 140-19 9 NIH CELESTINA NSUS RECOM MENDA TION FOR MAGO STERO L: ADULT CHILD LOW RISK: <200 <170 BORDE RLINE : <200- 239 ----- HIGH RISK: >240 >200 Not Available [facility] (Lab) [address] [place], [address], 09/23/2021 14:37:44 09/24/19 22 09/23/2021 LIPID PANEL triglyceride s 148 mg/dL 0-150 NIH CELESTINA NSUS REPOR T RECOM MENDA TION FOR TRIGL YCERI JOSE: ADULT CHILD LOW RISK: <150 ----- BODER LINE: 150-1 99 ----- HIGH RISK: >200 ----- Not Available [facility] (Lab) [address] [place], [address], 09/23/2021 14:37:44 09/24/19 22 09/23/2021 LIPID PANEL HDL cholesterol 63 mg/dL 40- Not Available [facility] (Lab) [address] [place], [address], 09/23/2021 14:37:44 09/24/19 22 09/23/2021 LIPID PANEL [...] WILL NOT BE REPOR ADEN. Not Available [facility] (Lab) [address] [place], [address], 09/23/2021 14:37:44 09/24/19 22 09/23/2021 HEMOG LOBIN A1C HA1C 7.8 % 4.0-6. 0 high Diabe kecia Scree elli Crite bonnie: <5.7% Consi stent with absen ce of diabe kecia 5.7-6 .4% Consi stent with incre ased risk for diabe kecia (pred iabet es) >OR=6 .5% Consi stent with diabe kecia REFER ENCE: Diabe kecia Care 2016, 39(Raya ppl.1 ):s13 -s22 Not Available [facility] (Lab) [address] [place], [address], 09/23/2021 14:36:33 01/17/2001/16/2023 CBC/C OMPLE TE BLD COUNT W/DIF F white blood cells 5.2 x10'3 /uL 4.2-10 .8 Not Available [facility] (Lab) [address] [place], [address], 01/16/2023 18:01:15 01/17/20 23 01/16/2023 CBC/C OMPLE TE BLD COUNT W/DIF F red blood cells 4.43 x10'6 /uL 3.80-5 .20 Not Available [facility] (Lab) [address] [place], [address], 01/16/2023 18:01:15 01/17/20 23 01/16/2023 CBC/C OMPLE TE BLD COUNT W/DIF F hemoglobin 14.2 g/dL 12.0-1 5.6 Not Available [facility] (Lab) [address] [place], [address], 01/16/2023 18:01:15 01/17/2001/16/2023 CBC/C OMPLE TE BLD COUNT W/DIF F hematocrit 43.2 % 35.7-4 5.7 Not Available [facility] (Lab) [address] [place], [address], 01/16/2023 18:01:15 01/17/2001/16/2023 CBC/C OMPLE TE BLD COUNT W/DIF F mean red cell volume 97.5 fL 82.0-9 9.0 Not Available [facility] (Lab) [address] [place], [address], 01/16/2023 18:01:15 01/17/20 23 01/16/2023 CBC/C OMPLE TE BLD COUNT W/DIF F mean red cell hemoglobin 32.1 pg 27.0-3 3.0 Not Available [facility] (Lab) [address] [place], [address], 01/16/2023 18:01:15 01/17/20 23 01/16/2023 CBC/C OMPLE TE BLD COUNT W/DIF F mean RBC HGB concentratio n 32.9 g/dL 31.0-3 6.0 Not Available [facility] (Lab) [address] [place], [address], 01/16/2023 18:01:15 01/17/20 23 01/16/2023 CBC/C OMPLE TE BLD COUNT W/DIF F red cell distribution width 13.4 % 11.8-1 5.5 Not Available [facility] (Lab) [address] [facility] [place] [place], [address], 01/16/2023 18:01:15 01/17/20 23 01/16/2023 CBC/C OMPLE TE BLD COUNT W/DIF F platelets 297 x10'3 /uL 150-40 0 Not Available [facility] (Lab) [address] [place], [address], 01/16/2023 18:01:15 01/17/20 23 01/16/2023 CBC/C OMPLE TE BLD COUNT W/DIF F mean platelet volume 10.5 fL 9.0-12 .4 Not Available [facility] (Lab) [address] [place], [address], 01/16/2023 18:01:15 01/17/20 23 01/16/2023 CBC/C OMPLE TE BLD COUNT W/DIF F neutrophils 56.0 % 39.0-7 2.0 Not Available [facility] (Lab) [address] [place], [address], 01/16/2023 18:01:15 01/17/20 23 01/16/2023 CBC/C OMPLE TE BLD COUNT W/DIF F lymphocytes 31.9 % 16.0-4 7.0 Not Available [facility] (Lab) [address] [place], [address], 01/16/2023 18:01:15 01/17/20 23 01/16/2023 CBC/C OMPLE TE BLD COUNT W/DIF F monocytes 7.3 % 5.0-12 .0 Not Available [facility] (Lab) [address] [place], [address], 01/16/2023 18:01:15 01/17/20 23 01/16/2023 CBC/C OMPLE TE BLD COUNT W/DIF F eosinophils 3.3 % 1.0-7. 0 Not Available [facility] (Lab) [address] [place], [address], 01/16/2023 18:01:15 01/17/2001/16/2023 CBC/C OMPLE TE BLD COUNT W/DIF F basophils 1.3 % 0.0-2. 0 Not Available [facility] (Lab) [address] [place], [address], 01/16/2023 18:01:15 01/17/20 23 01/16/2023 CBC/C OMPLE TE BLD COUNT W/DIF F immature granulocytes 0.2 % 0.00-0 .50 Not Available [facility] (Lab) [address] [place], [address], 01/16/2023 18:01:15 01/17/20 23 01/16/2023 CBC/C OMPLE TE BLD COUNT W/DIF F neutrophils, absolute count 2.93 x10'3 /uL 1.5-8. 0 Not Available [facility] (Lab) [address] [place], [address], 01/16/2023 18:01:15 01/17/20 23 01/16/2023 CBC/C OMPLE TE BLD COUNT W/DIF F lymphocytes, absolute count 1.67 x10'3 /uL 1.07-3 .43 Not Available [facility] (Lab) [address] [place], [address], 01/16/2023 18:01:15 01/17/20 23 01/16/2023 CBC/C OMPLE TE BLD COUNT W/DIF F monocytes, absolute count 0.38 x10'3 /uL 0.29-0 .99 Not Available [facility] (Lab) [address] [facility] [place], [address], 01/16/2023 18:01:15 01/17/2001/16/2023 CBC/C OMPLE TE BLD COUNT W/DIF F eosinophils, absolute count 0.17 x10'3 /uL 0.02-0 .53 Not Available [facility] (Lab) [address] [place], [address], 01/16/2023 18:01:15 01/17/20 23 01/16/2023 CBC/C OMPLE TE BLD COUNT W/DIF F basophils, absolute count 0.07 x10'3 /uL 0.01-0 .08 Not Available [facility] (Lab) [address] [place], [address], 01/16/2023 18:01:15 01/17/2001/16/2023 CBC/C OMPLE TE BLD COUNT W/DIF F immature granulocytes ,absolute 0.01 x10'3 /uL 0.00-0 .05 Not Available [facility] (Lab) [address] [place], [address], 01/16/2023 18:01:15 01/17/2001/16/2023 CBC/C OMPLE TE BLD COUNT W/DIF F nucleated red blood cells 0.0 % -0 Not Available [facility] (Lab) [address] [place], [address], 01/16/2023 18:01:15 01/17/20 23 01/16/2023 CBC/C OMPLE TE BLD COUNT W/DIF F NRBC# 0.00 x10'3 /uL Not Available [facility] (Lab) [address] [place], [address], 01/16/2023 18:01:15 01/17/20 23 01/16/2023 COMPR EHENS CHRISTINA METAB OLIC PANEL sodium 138 mmol/ L 137-14 5 Not Available [facility] (Lab) [address] [place], [address], 01/16/2023 18:15:52 01/17/20 23 01/16/2023 COMPR EHENS CHRISTINA METAB OLIC PANEL potassium 4.2 mmol/ L 3.5-5. 1 Not Available [facility] (Lab) [address] [place], [address], 01/16/2023 18:15:52 01/17/20 23 01/16/2023 COMPR EHENS CHRISTINA METAB OLIC PANEL chloride 101 mmol/ L 98-107 Not Available [facility] (Lab) [address] [place], [address], 01/16/2023 18:15:52 01/17/20 23 01/16/2023 COMPR EHENS CHRISTINA METAB OLIC PANEL carbon dioxide 27 mmol/ L 22-30 Not Available [facility] (Lab) [address] [place], [address], 01/16/2023 18:15:52 01/17/20 23 01/16/2023 COMPR EHENS CHRISTINA METAB OLIC PANEL anion gap 14.2 mmol/ L 14-22 Not Available [facility] (Lab) [address] [place], [address], 01/16/2023 18:15:52 01/17/20 23 01/16/2023 COMPR EHENS CHRISTINA METAB OLIC PANEL glucose 109 mg/dL 70-99 high Not Available [facility] (Lab) [address] [place], [address], 01/16/2023 18:15:52 01/17/20 23 01/16/2023 COMPR EHENS CHRISTINA METAB OLIC PANEL BUN 15 mg/dL 8-19 Not Available [facility] (Lab) [address] [place], [address], 01/16/2023 18:15:52 01/17/2001/16/2023 COMPR EHENS CHRISTINA METAB OLIC PANEL creatinine 0.57 mg/dL 0.66-1 .25 low Not Available [facility] (Lab) [address] [place], [address], 01/16/2023 18:15:52 01/17/20 23 01/16/2023 COMPR EHENS CHRISTINA METAB OLIC PANEL GFR >60 Refer ence Range : [place] GFR Healt hy Adult : >60 [...] or ethni c subgr oups, such as [facility] nics. Outsi de the valid ated [...] calcu lator is avail able on the [facility] websi te: https :[email or web address] [email or web address] rg/pr ofess ional s/kdo qi/gf r_cal culat or Not Available [facility] (Lab) [address] [place], [address], 01/16/2023 18:15:52 01/17/20 23 01/16/2023 COMPR EHENS CHRISTINA METAB OLIC PANEL alkaline phosphatase 101 U/L 38-126 Not Available [facility] (Lab) [address] [place], [address], 01/16/2023 18:15:52 01/17/20 23 01/16/2023 COMPR EHENS CHRISTINA METAB OLIC PANEL alanine aminotransfe rase 23 U/L 0-35 Not Available [facility] (Lab) [address] [place], [address], 01/16/2023 18:15:52 01/17/20 23 01/16/2023 COMPR EHENS CHRISTINA METAB OLIC PANEL aspartate aminotransfe rase 24 U/L 15-37 Not Available [facility] (Lab) [address] [place], [address], 01/16/2023 18:15:52 01/17/20 23 01/16/2023 COMPR EHENS CHRISTINA METAB OLIC PANEL bilirubin, total 0.50 mg/dL 0.20-1 .30 Not Available [facility] (Lab) [address] [place], [address], 01/16/2023 18:15:52 01/17/20 23 01/16/2023 COMPR EHENS CHRISTINA METAB OLIC PANEL calcium 9.8 mg/dL 8.4-10 .2 Not Available [facility] (Lab) [address] [place], [address], 01/16/2023 18:15:52 01/17/20 23 01/16/2023 COMPR EHENS CHRISTINA METAB OLIC PANEL total protein 8.5 g/dL 6.3-8. 2 high Not Available [facility] (Lab) [address] [place], [address], 01/16/2023 18:15:52 01/17/20 23 01/16/2023 COMPR EHENS CHRISTINA METAB OLIC PANEL albumin 4.9 g/dL 3.0-4. 4 high Not Available [facility] (Lab) [address] [place], [address], 01/16/2023 18:15:52 01/17/20 23 01/16/2023 COMPR EHENS CHRISTINA METAB OLIC PANEL globulin 3.6 g/dL 2.6-4. 2 Not Available [facility] (Lab) [address] [place], [address], 01/16/2023 18:15:52 01/17/20 23 01/16/2023 COMPR EHENS CHRISTINA METAB OLIC PANEL A/G ratio 1.4 ratio 1.0-2. 0 Not Available [facility] (Lab) [address] [place], [address], 01/16/2023 18:15:52 01/17/2001/16/2023 VITAM IN D 25-HY DROXY [id number] 39.1 NG/mL 30-100 Vitam in D Statu s: Defic ient: <20 ng/mL Insuf ficie nt: 20-29 ng/mL Suffi cient : 30-10 0 ng/mL Not Available [facility] (Lab) [address] [place], [address], 01/16/2023 18:59:24 01/17/2001/16/2023 HEMOG LOBIN A1C HA1C 6.9 % 4.0-6. 0 high Diabe kecia Scree elli Crite bonnie: <5.7% Consi stent with absen ce of diabe kecia 5.7-6 .4% Consi stent with incre ased risk for diabe kecia (pred iabet es) >OR=6 .5% Consi stent with diabe kecia REFER ENCE: Diabe kecia Care 2016, 39(Raya ppl.1 ):s13 -s22 Not Available [facility] ([facility]) [address] [place], [address], 01/16/2023 20:04:48 10/19/19 22 10/18/2021 DEXA, axial skele ton [facility] [address] [place] [address] [phone] Patien t Name: MELODIE DALTON Access ion #: [id number] Sex: F : 1955 7 Locati [...] g/cm2 calciu m Page 1 of 2 [facility] Name: MELODIE DALTON Access ion #: [id number] Sex: F : 1955 7 Exam [...] MD (CT) (CT) Page 2 of 2 [id number] [facility] (Imaging) [address] [place], [address], 08/10/2022 05:05:08 10/19/19 22 10/18/2021 scree elli breas t irina, bilat [facility] [address] [place] [address] Patining t Name: MELODIE DALTON Access ion #: [id number] Sex: F : 1955 7 Locati [...] 2 [facility] Jacqui gómez Name: MELODIE DALTON Access ion #: [id number] Sex: F : 1955 7 Exam [...] ly to the [facility]. A negati ve mammog chuck report should not discou rage follow -up or biopsy of a clinic ally signif icant findin g and/or abnorm ality. Dense breast tissue may obscur e small neopla sms. This jacqui gómez has been entere d into a mammog cuhck remind er system with a target date for her next mammog cristy. Create d and electr onical ly signed by: Devin benoit MD Signed Date: 10/19/19 11:33 AM (CT) Dictat ed by: Devin benoit MD (CT) (CT) Page 2 of 2 [id number] [facility] (Imaging) [address] [place], [address], 08/10/2022 05:05:08 06/09/20 23 06/09/2023 chad mendez t irina, bilat [facility] [address] [place] [address] Jacqui gómez Name: MELODIE DALTON Access ion #: [id number] Sex: F : 1955 6 Dictat [...] at 2022 15:12: 39 PM Page 1 [email or web address] [facility] (Imaging) [address] [facility], [place], [address], 06/16/2023 14:53:31 01/18/20 24 01/17/2024 LDCT, chest , for lung cance r chad calloway No observ ation record ed. [email or web address] [facility] [address] [address], [place], [address], 02/22/2024 15:47:30 Result Notes None recorded. Problems Name Problem SNOMED Code Status Onset Date Resolution Date Notes Provider Name and Address Organization Details Recorded Time Mammograp hy abnormal 832155205 Completed Not Available [facility] 3 04:54:02 Asthma 703063944 Active Not Available [facility] 4 05:46:31 Sciatica 91540449 Completed Not Available [facility] 3 04:54:02 Morbid obesity 585629180 Active 2021 Not Available [facility] 4 05:46:31 Pure hyperchol esterolem [place] 975205040 Active Not Available [facility] 4 05:46:31 Low back pain 700449590 Active Not Available [facility] 4 05:46:31 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 Active Not Available [facility] 4 05:46:31 Type 2 diabetes mellitus without complicat ion 930059941 Active Not Available [facility] 4 05:46:31 Vitamin D deficienc y 10829338 Active Not Available [facility] 4 05:46:31 Diverticu lar disease of colon 177626735 Active Not Available [facility] 4 05:46:31 Dizziness 917213662 Completed Not Available [facility] 3 04:54:03 Magnetic resonance imaging of brain abnormal 915596128 Active Not Available [facility] 4 05:46:31 Pain of right knee joint 27392293375 4100 Active 2021 Not Available [facility] 4 05:46:31 Anxiety 00505757 Active 2018 Not Available [facility] 4 05:46:31 Upper respirato ry infection 06941553 Completed Not Available [facility] 3 04:54:03 Essential hypertens ion 95096929 Active 2018 Not Available [facility] 4 05:46:31 Rhinitis 48430039 Completed Not Available [facility] 3 04:54:03 COVID-19 423797270 Active 2021 Not Available [facility] 4 05:46:31 Problem Notes None recorded. Procedures Surgical History Date Name Laterality Status Provider Name and Address Organization Details Recorded Time 08/26/19 15 Most Recent Bone Density completed Not Available [facility] 08/10/2022 04:45:07 11/15/19 08 Date of Last Colonoscopy completed Not Available [facility] 08/10/2022 04:45:07 Jaw arthroscopy/kirstin josemanuel completed Not Available [facility] 08/10/2022 04:45:13 removal of sebaceous cyst completed Not Available [facility] 08/10/2022 04:45:13 Imaging Results Imaging Date Name Status LastModified by Organiz ation Details LastModified Time 10/18/2021 DEXA, axial skeleton completed [id number] [facility] (Imaging) [address] [place], [address], 08/10/2022 05:05:08 10/18/2021 screening breast irina, bilat completed [id number] [facility] (Imaging) [address] [place], [address], 08/10/2022 05:05:08 06/09/2023 screening breast irina, bilat completed [email or web address] [facility] (Imaging) [address] [place], [address], 06/16/2023 14:53:31 01/17/2024 LDCT, chest, for lung cancer screening completed [email or web address] [facility] [address], [place], [address], 02/22/2024 15:47:30 Procedure Notes None recorded. Medical [...] Available Not Available No t Available Fluvirin 1000-7073(P F) 45 mcg (15 mcg x3)/0.5 mL [...] kg/m2 157.48 cm 78 /min 97.6 [degF] 255952. 31 g 128 mm[Hg] 72 mm[Hg] Not Available [facility] 3 04:47:18 Date Recorded Body mass index (BMI) Body height Heart rate Body temperature Body weight Systolic blood pressure Diastolic blood pressure Provider Name and Address Organization Details Last Updated DateTime 2 49.9 kg/m2 157.48 cm 75 /min 97.2 [degF] 672304. 72 g 104 mm[Hg] 78 mm[Hg] Not Available [facility] 3 04:47:18 Date Recorded Body mass index (BMI) Body height Heart rate Body temperature Body weight Systolic blood pressure Diastolic blood pressure Provider Name and Address Organization Details Last Updated DateTime 3 50.5 kg/m2 157.48 cm 78 /min 98.2 [degF] 621879. 49 g 118 mm[Hg] 78 mm[Hg] Not Available [facility] 3 04:47:18 Date Recorded Body height Body mass index (BMI) Body weight Body temperature Heart rate Oxygen saturation Oxygen saturation in Arterial blood by Pulse oximetry Systolic blood pressure Diastolic blood pressure Provider Name and Address Organization Details Last Updated DateTime 3 157.48 cm 49.7 kg/m2 619132. 12 g 98.5 [degF] 68 /min 96 % 96 % 122 mm[Hg] 70 mm[Hg] Tg Silva MA [employer] 3 14:19:21 Date Recorded Body height Body mass index (BMI) Body weight Body temperature Heart rate Systolic blood pressure Diastolic blood pressure Provider Name and Address Organization Details Last Updated DateTime 3 157.48 cm 51 kg/m2 401898. 27 g 97.9 [degF] 89 /min 126 mm[Hg] 74 mm[Hg] ANNA Alvarez [employer] 3 13:59:40 Social History Question Answer Notes LastModified by Organization Details LastModified Time Tobacco Smoking Status Current Every Day Smoker Not Available [facility] 08/10/2022 04:21:10 Do You Have An Advance Directive? Yes [id number] Information not available 08/10/2022 What Is Your Level Of Alcohol Consumption? Occasional [id number] [id number] Information not available 08/10/2022 Are You Blind Or Do You Have Difficulty Seeing? No [id number].[id number] [id number] Information not available 08/10/2022 What Is Your Level Of Caffeine Consumption? Moderate [id number] [id number] Information not available 08/10/2022 How Much Tobacco Do You Chew? None [id number].0301 [id number] Information not available 08/10/2022 In The 14 Days Before Symptom Onset, Have You Had Close Contact With A Laboratory-conf rich COVID-19 While That Case Was Ill? No [id number].[id number] [id number] Information not available 08/10/2022 In The 14 Days Before Symptom Onset, Have You Had Close Contact With A Person Who Is Under Investigation For COVID-19 While That Person Was Ill? No [id number].0301 [id number] Information not available 08/10/2022 Are You Deaf Or Do You Have Serious Difficulty Hearing? No [id number].0301 [id number] Information not available 08/10/2022 What Type Of Diet Are You Following? SPECIFIC [employer] MIGRATION.0301 [id number] Information not available 08/10/2022 Which Illicit Or Recreational Drugs Have You Used? None [id number].0301 [id number] Information not available 08/10/2022 Do You Or Have You Ever Used E-cigarettes Or Vape? Never Used Electronic Cigarettes MIGRATION.0301 [id number] Information not available 08/10/2022 What Is The Highest Grade Or Level Of School You Have Completed Or The Highest Degree You Have Received? 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 No MIGRATION.0301 362131 Information not available 08/10/2022 What Is The Fluoride Status Of Your Home? Unknown MIGRATION.0301 240722 Information not available 08/10/2022 Are There Any Guns Present In Your Home? Yes MIGRATION.0301 979735 Information not available 08/10/2022 Do You Use Insect Repellent Routinely? No MIGRATION.0301 884826 Information not available 08/10/2022 Where Do You Live? [place]House MIGRATION.0301 943229 Information not available 08/10/2022 Do You Have A Medical Power Of Chip Bin Operator? Yes MIGRATION.0301 019210 Information not available 08/10/2022 What Was The Date Of Your Most Recent Tobacco Screening? 05/15/2023 [email or web address] Information not available 05/15/2023 Have You Ever Been Counseled For Unhealthy Alcohol Use? No MIGRATION.0301 093651 Information not available 08/10/2022 Do You Have Any Pets? No MIGRATION.0301 820261 Information not available 08/10/2022 What Is Your Relationship Status? MIGRATION.0301 658985 Information not available 08/10/2022 Do You Use Your Seat Belt Or Car Seat Routinely? Yes MIGRATION.0301 415829 Information not available 08/10/2022 Do You Have Smoke And Carbon Monoxide Detectors In Your Home? Yes MIGRATION.0301 470031 Information not available 08/10/2022 At What Age Did You Start Smoking Tobacco? 24 MIGRATION.0301 073202 Information not available 08/10/2022 Are You Passively Exposed To Smoke? Yes MIGRATION.0301 377975 Information not available 08/10/2022 Do You Or Have You Ever Used Smokeless Tobacco? Never Used Smokeless Tobacco MIGRATION.0301 502822 Information not available 08/10/2022 Are There Any Smokers In Your House? Yes MIGRATION.0301 219480 Information not available 08/10/2022 How Much Tobacco Do You Smoke? 0.5 PPD MIGRATION.0301 155415 Information not available 08/10/2022 What Types Of Sporting Activities Do You Participate In? None MIGRATION.0301 238038 Information not available 08/10/2022 Do You Feel Stressed (tense, Restless, Nervous, Or Anxious, Or Unable To Sleep At Night)? OH5447-9 MIGRATION.0301 739518 Information not available 08/10/2022 Do You Use Any Illicit Or Recreational Drugs? No MIGRATION.0301 540615 Information not available 08/10/2022 Do You Use Sunscreen Routinely? Yes MIGRATION.0301 393503 Information not available 08/10/2022 Have You Recently Traveled Abroad? No MIGRATION.0301 119641 Information not available 08/10/2022 Do You Have Any Dietary Restrictions? No MIGRATION.0301 985503 Information not available 08/10/2022 Do You Or Have You Ever Used Any Other Forms Of Tobacco Or Nicotine? No MIGRATION.0301 849339 Information not available 08/10/2022 Sex: Female Functional Status Question Answer Note LastModified by Organizat ion Details LastModified Time Do you have difficulty walking or climbing stairs? Yes MIGRATION.4814889 026 Information not available 08/10/2022 Do you have transportation difficulties? No MIGRATION.3458691 026 Information not available 08/10/2022 Are you able to walk? YESASSIST MIGRATION.2266339 026 Information not available 08/10/2022 Do you have difficulty doing errands alone? No MIGRATION.0170864 026 Information not available 08/10/2022 Are you able to care for yourself? Yes MIGRATION.2634902 026 Information not available 08/10/2022 Do you have difficulty dressing or bathing? No MIGRATION.2677812 026 Information not available 08/10/2022 What is your exercise level? Moderate MIGRATION.2410959 026 Information not available 08/10/2022 Mental Status Question Answer Note LastModified by Organizat ion Details LastModified Time Do you have difficulty concentrating, remembering or making decisions? No MIGRATION.[id number] 6 Information not available 08/10/2022 Family History Relationship Description Onset Age of this Age Resolved Age Notes LastModified by Organization Details LastModified Time Mother Malignant tumor of breast MIGRATION.326 [id number] Not available 08/10/2022 04:45:16 Father Malignant tumor of lung MIGRATION.001 [id number] Not available 08/10/2022 04:45:16 Brother Heart disease MIGRATION.661 [id number] Not available 08/10/2022 04:45:16 Medical History Condition Response BLINDNESS N NERVE DISEASE N RHEUMATIC FEVER N BLADDER PROBLEMS N KIDNEY STONES N MRSA N OTHER # 1 N POLIO N LUNG DISEASE/DISORDER N RADIATION / CHEMOTHERAPY N COPD N Other # 2 N BLOOD DISEASES N EAR OR HEARING PROBLEMS N MUMPS N DEPRESSION (INCLUDING POST ) N BOWEL PROBLEMS N STROKE/TIA N ULCERS N BENIGN PROSTATIC HYPERPLASIA N MEASLES N MYOCARDIAL INFARCTION N OBESITY Y GERD/NAUSEA N ANEURYSM N URINARY/BLADDER/KIDNEY PROBLEMS N CORONARY ARTERY DISEASE (CAD) N ADDICTION CONCERNS N ENDOMETRIOSIS N Impotence N USE OF BLOOD THINNERS N SKIN [...] APNEA N CHICKENPOX N INFECTIOUS DISEASE N HEART ARRHYTHMIA N PROSTATE N INSOMNIA N HIGH CHOLESTEROL / HYPERLIPIDEMIA Y HYPERTHYROIDISM N EYE PROBLEMS N EDEMA N CHRONIC PAIN SYNDROME N HYPOTHYROIDISM N CAROTID BLOCKAGE N CONSTIPATION N BACK / NECK PROBLEMS Y ATHEROSCLEROSIS N BREAST PROBLEMS Y DIALYSIS N ECZEMA N OSTEOPOROSIS N ARTHRITIS N APPENDICITIS N DIABETES, TYPE Y BAD TEETH N ENT N HEARTBURN / REFLUX N AUTISM SPECTRUM DISORDER (ASD) N HEPATITIS / LIVER DISEASE N GOUT N SLEEP DISORDER N ALZHEIMER'S DISEASE N Brain Problems Y HERPES N DEMENTIA N HEADACHES/MIGRAINES N SEIZURES/EPILEPSY N VASCULAR DISEASE N PACEMAKER N Blood Disorder N DIZZINESS N HEART DISEASE/HEART PROBLEMS N KIDNEY DISEASE N MULTIPLE SCLEROSIS N CARDIAC ARRHYTHMIA N CANCER: SPECIFY N ATRIAL FIBRILLATION N Gall Stones N [...] 50 mcg/0.25mL dose 1 completed Not Available [facility] 06/29/2023 05:46:32 COVID-19, mRNA, LNP-S, PF, 100 mcg/0.5mL dose or 50 mcg/0.25mL dose 1 completed Not Available [facility] 06/29/2023 05:46:32 Influenza, split virus, quadrivalent, preservative 9 completed Not Available [facility] 06/29/2023 05:46:32 Influenza, split virus, quadrivalent, preservative 8 completed Not Available [facility] 06/29/2023 05:46:32 Influenza, split virus, quadrivalent, preservative 6 completed Not Available [facility] 06/29/[facility]23 05:46:31 Influenza, split virus, quadrivalent, preservative 7 completed Not Available [facility] 06/29/2023 05:46:32 Influenza, split virus, trivalent, preservative 4 completed Not Available [facility] 06/29/2023 05:46:32 Past Encounters Encounter ID Performer Location Encounter Start Date Encounter Closed Date Diagnosis/Indication Diagnosis SNOMED-CT Code Diagnosis ICD10 Code Diagnosis Note [id number] [facility] [place] Internal Med [address] Mariola Faria, [address] [address] 12/16/2020 00:00:00 12/16/2020 21:22:22 [id number] [facility] [address] [place], [place] [address]e., [address] [address] 05/21/2021 00:00:00 06/13/2021 22:42:40 [id number] [facility] [address] [place], [place] [address]kaycee., [address] [address] 07/09/2021 00:00:00 07/09/2021 20:40:37 [id number] [facility] [address] [place], [place] [address]e., [address] [address] 08/10/2021 00:00:00 08/28/2021 22:02:28 [id number] [facility] [address] [place] [address]., [address] [address] 10/06/2021 00:00:00 10/09/2021 20:05:31 [id number] [facility] [address] [address] 02/23/2022 00:00:00 02/23/2022 23:00:04 [id number] [facility] [address] [address] 07/18/2022 00:00:00 07/18/2022 11:20:42 [id number] Eugene Moore MD [facility] [address] [address] 01/16/2023 14:12:02 01/16/2023 15:46:06 Essential hypertension 91928285 I10 Type 2 estuardo betes mellitus without complication 384806108 E11.9 Vitamin D deficiency 347 97193 E55.9 Morbid obesity 179589978 E66.01 Anxiety 88153981 F41.9 Asthma 344894386 J45.90 9 Intracrani al meningioma 358542457 D32.0 [id number] Eugene Moore MD [facility] [address] [facility] [address] [place] [address] 05/15/2023 13:50:21 05/15/2023 14:44:42 Essential hypertension 94974365 I10 Anxiety 43267680 F41.9 Morbid obesity 629779203 E66.01 Asthma 473553659 J45.90 9 Intracrani al meningioma 494599185 D32.0 Health Concerns Section Related Observation LastModified by Organization Detai ls LastModified Time None Recorded Concern Status LastModified by Organization Details LastModified Time None Recorded Advance Directives Directive Y: Payers Encounter Date Sequence Insurance Name Policy Number Policy Ralph Covered Member ID Ralph Member ID Guarantor Name 01/16/2023 1 [place] [id number] Mikki Dalton [id number] Mikki Dalton 05/15/2023 1 [place] [id number] Mikki Dalton [id number] Mikki Dalton Notes Date Note Type [...] stable on inhalers. Eugene Moore MD [address] [facility], [address], [place], [address], [employer] 01/17/2023 20:26:28 05/15/2023 text/html Diabetes no polyphagia [...] changes in meningioma Eugene Moore MD [address] [facility], [place], [address], [facility] [employer] 05/15/2023 23:13:11 OBGyn Episode No OBEpisode recorded.
--- OUTSIDE RECORDS SUMMARY | 2024-07-09 08:24 | XMS_ITS | Continuity of Care Document ---
Author Organization [facility] Address [address] [place] [address] Phone Care Team Providers Care Fisheries Manager Name Role Phone Hilario Shook MD Unavailable Unavailable Advance Directives Directive Yes / No Effective Date File Name No Information Encounters Encounter Description Practice Location Reason(s) For Visit Diagnoses Date Provider Providers Copied on Encounter [facility], [address], [place], [place], [id number], tel:[phone] [facility] No Information Boone Rich. [address], [place], [place], [address], [place]. tel:[phone] Referring Provider: [address], [place], [address]. tel:[phone] Family History Family Member Type Diagnosis Age At Onset No Information Payers Payer name Insurance type Covered libertarian ID Authoriza tion(s) [employer] INACTIVE OUT OF STATE [id number] Social History Type Description Quantity Date Captured [...]
--- NOTE | 2024-07-22 08:17 | WPDSLEEPSTUD ---
Sleep Study Date of Study: 07/09/24 Ordering Provider: Thaddeus Glasgow MD Interpreting Physician: Liss Rivas MD Sleep Study Type: Split Polysomnogram Height: 1.6 m Weight: 107.048 kg Body Mass Index: 41.8 Neck Circumference (inches): 16.25 [place]: 7 Reason for Sleep Study poor quality sleep, obesity Sleep History Mikki Dalton is a 68-year-old woman with obesity, a severe obstructive ventilatory impairment, tobacco abuse and right middle lobe collapse. She never awakens from sleep short of breath. She occasionally wakes at night with heartburn, belching or coughing.??She occasionally snores,but never snores loudly enough that others complain. She occasionally has trouble sleeping when she has a cold. She never wakes up gasping for breath during the night. She denies having breathing problems at night observed by others. She never sweats excessively at night. She never notices her heart pounding or beating irregularly during the night. She never falls asleep during the day. She occasionally falls asleep involuntarily, however never falls asleep while driving. She never experiences loss of muscle tone with strong emotion, never feels paralyzed on waking or falling asleep. She never experiences vivid dreams upon waking or falling asleep. She never feels afraid of going to sleep. She rarely has nightmares. She rarely recalls her dreams. She never has thoughts racing thoughts. She occasionally feels sad or depressed. She occasionally feels anxiety. She occasionally notices parts of her body jerk. She never kicks during the night. She never feels crawling or aching feelings in her legs. She occasionally feels leg pain at night. She never has morning jaw pain, and never grinds her teeth at night. She frequently feels bothered by pain during the day, is never awakened by pain during the night. She frequently wakes up feeling stiff in the morning, frequently wakes feeling sore or achy in the morning. She frequently awakens with pain in her neck, spine, or joints. The patient has memory problems. Normal bedtime is between midnight and 1:00 a.m., falling asleep within 10-15 minutes, generally not waking for the next 4-5 hours. She wakes between 6:00 a.m. and 7:00 a.m., and she normally gets between 4 and 5 hours of sleep at night. The patient does not generally take naps. A short nap lasting 10-15 minutes is not refreshing. She generally feels better in the evening compared to other times of day. Habits:??Tobacco: 1 pack per day Caffeine: 2 cups daily Alcohol: Rarely Recreational substances: 1/2 gummy in the evening PMFSH Past Medical History Medical History Anxiety Intracranial meningioma Hyperlipemia Essential hypertension Type 2 diabetes mellitus Social History Social History Smoking packs per day: 1 Smoking cigarettes per day: 20.0 Smoking status: Current every day smoker Medications Home Medications ?Medication ?Instructions ?Recorded ?Confirmed ?Type albuterol sulfate 90 mcg/actuation 1 puff inhalation Q4H PRN 02/28/24 History aerosol inhaler amlodipine 10 mg tablet 10 mg PO DAILY 02/28/24 History atorvastatin 20 mg tablet 20 mg PO DAILY 02/28/24 History baclofen 10 mg tablet 10 mg PO DAILY 02/28/24 History citalopram 10 mg tablet 10 mg PO DAILY 02/28/24 History fluticasone furoate 100 1 inh inhalation DAILY 02/28/24 History mcg-vilanterol 25 mcg/dose inhalation powder (Breo Ellipta) fluticasone propionate 50 2 spray intranasal DAILY 02/28/24 History mcg/actuation nasal spray,suspension furosemide 20 mg tablet 20 mg PO QAM 02/28/24 History gabapentin 300 mg capsule 300 mg PO DAILY 02/28/24 History metformin 500 mg tablet 500 mg PO BID 02/28/24 History montelukast 10 mg tablet 10 mg PO DAILY 02/28/24 History nabumetone 750 mg tablet 750 mg PO BID 02/28/24 History semaglutide 1 mg/dose (4 mg/3 mL) 1 mg subcut WEEKLY 02/28/24 History subcutaneous pen injector (Ozempic) aspirin 81 mg tablet 81 mg PO DAILY 02/29/24 History cetirizine 10 mg capsule (Zyrtec) 10 mg PO DAILY PRN 02/29/24 History cholecalciferol (vitamin D3) 25 25 mcg PO DAILY 02/29/24 History mcg (1,000 unit) capsule losartan 100 1 tablet PO DAILY 02/29/24 History mg-hydrochlorothiazide 25 mg tablet magnesium gluconate 27 mg 27 mg PO BID 02/29/24 History magnesium (500 mg) tablet (Mag-G) eszopiclone 2 mg tablet 2 mg PO ONCE #1 tablet 06/06/24 Rx Sleep Procedure A split night polysomnogram using the [employer] [place] multi-channel system recorded the standard physiologic parameters including EEG, EOG, submentalis EMG, anterior tibialis EMG, EKG, body position, nasal and oral airflow using nasal pressure sensor and thermistor. Respiratory parameters of chest and abdominal movements were recorded with Respiratory Inductance Plethysmography belts. Oxygen saturation was recorded by pulse oximetry. Video monitoring was also performed. Sleep stages, periodic limb movements, and EEG arousals were scored in 30 second epochs according to the criteria of the AASM Scoring Manual. The Apnea-Hypopnea Index was calculated using CMS guidelines for definition of hypopnea with 4% O2 desaturations while scoring respiratory events. The solar maintenance technician recorded that the patient took eszopiclone prior to the lights being turned out. The head of the bed was elevated about 40-45 degrees, the foot of the bed was elevated 25?. The test was started without supplemental oxygen but then added when she had sustained hypoxemia. This was sleep lab protocol. Oxygen at 1 L was added to maintain a saturation at 88%. The patient met criteria for a split night study with an apnea-hypopnea index of 18 and desaturation to 74%. The patient had sustained hypoxemia on the baseline and was placed on oxygen 1 liter/minute during the baseline. The titration portion was started without supplemental oxygen. The patient used a small ResMed AirFit F20 full face mask and and heated humidity, the initial pressure was CPAP 5 cm, but the patient did not feel comfortable so the pressure was increased to CPAP 7 cm. Titration continued with CPAP 9 cm, CPAP 11 cm. The patient was switched to bilevel 11/4, 13/6, 14/8, 16/8, and oxygen was added, BiPAP 25/01 with 1 L of oxygen due to sustained hypoxemia. Sleep Architecture During the diagnostic portion of the study, the total recording time was 229.9 minutes. The total sleep time was 143.5 minutes. Sleep latency was 55.4 minutes. REM latency was - minutes. Sleep Efficiency was 62.4%. The patient had 9 awakenings for an awakening index of 3.8. Wake after sleep onset time was 31.0 minutes. The patient spent 8.0 minutes, 5.6% of total sleep time in Stage N1. The patient spent 103.0 minutes, 71.8% in Stage N2. The patient spent 32.5 minutes, 22.6% in Stage N3. The patient spent no time in Stage REM sleep. Due to sustained hypoxemia and a minimum saturation of 74%, oxygen was added at 1 L/minute to maintain a saturation of 88%. The patient met criteria for a PAP titration. At 02:22:54 AM the patient was placed on PAP treatment and was titrated at pressures ranging from CPAP 5 cm, 7 cm, 9 cm, then 11 cm. CPAP was switched to BiPAP 11/4, 13/6, 14/8, 16/8, and the final pressure was 16/8 with oxygen at 1 L/minutes. During the treatment portion of the study, the total recording time was 273.6 minutes. The total sleep time was 171.5 minutes. Sleep latency was 14.5 minutes. REM latency was 151.5 minutes. Sleep Efficiency was 62.7%. Wake after Sleep Onset time was 87.5 minutes. The patient spent 28.0 minutes, 16.3% of total sleep time in Stage N1. The patient spent 133.5 minutes, 77.8% in Stage N2. The patient spent 1.0 minutes, 0.6% in Stage N3. The patient spent 9.0 minutes, 5.2% in Stage REM. Respiratory Analysis During the diagnostic portion of the study, the patient had 23 hypopneas, 20 obstructive apneas, no mixed apneas, and no central apneas for an overall Apnea Hypopnea Index of 18.0 events per hour. The REM Apnea Hypopnea Index was 0 because there was no REM on the baseline. The NREM Apnea Hypopnea Index was 18.0. The patient had a Central Apnea Hypopnea Index of 0. There were no Respiratory Effort Related Arousals. The Respiratory Disturbance Index is 18.0 events per hour. There was no evidence of Roney-Baldwin Respirations. During the treatment portion of the study, the patient had 31 hypopneas, 4 obstructive apneas, no mixed apneas or central apneas for an overall Apnea Hypopnea Index of 12.2 events per hour. The REM Apnea Hypopnea Index was 0. The NREM Apnea Hypopnea Index was 12.9. The patient had a Central Apnea Hypopnea Index of 0. There were no Respiratory Effort Related Arousals. The Respiratory Disturbance Index is 12.2 events per hour. There was no evidence of Roney-Baldwin Respirations. Arousals During the diagnostic portion of the study, there were a total of 37 arousals for an arousal index of 15.5. There were 1 respiratory arousals for an index of 0.4. There were no periodic limb movement arousals. There were 2 isolated limb movement arousals for an index of 0.8. There were 34 spontaneous arousals for an index of 14.2. During the treatment portion of the study, there were a total of 63 arousals for an index of 22.0. There were 6 respiratory arousals for an index of 2.1. There were 3 periodic limb movement arousals for an index of 1.0. There were 9 isolated limb movement arousals for an index of 3.1. There were 45 spontaneous arousals for an index of 15.7. Periodic Limb Movements During the diagnostic portion of the study, the patient had 10 isolated limb movements with an index of 4.2. The patient had 37 periodic limb movements with an index of 15.5. The patient had a total of 47 limb movements with a total limb movement index of 19.7. During the treatment portion of the study, the patient had 14 isolated limb movements with an index of 4.9. The patient had 30 periodic limb movements with an index of 10.5. The patient had a total of 44 limb movements with a total limb movement index of 15.4. Oximetry Data During the diagnostic portion of the study, the patient had an average oxygen saturation of 88.6% in wake with a minimum oxygen saturation of 83% and a maximum oxygen saturation of 95%. The patient had an average oxygen saturation of 87.4% in sleep with a minimum oxygen saturation of 74% and a maximum oxygen saturation of 96%. The patient had 66 oxygen desaturations resulting in an Oxygen Desaturation Index of 27.6. The patient spent 130.8 minutes, 61.8% of total sleep time with an oxygen saturation less than 88%. Supplemental oxygen at 1 L/min was added during the baseline due to sustained hypoxemia. During the treatment portion of the study, the patient had an average oxygen saturation of 90.6% in wake with a minimum oxygen saturation of 78% and a maximum oxygen saturation of 95%. The patient had an average oxygen saturation of 86.9% in sleep with a minimum oxygen saturation of 76% and a maximum oxygen saturation of 95%. The patient had 56 oxygen desaturations resulting in an Oxygen Desaturation Index of 19.6. The patient spent 156.8 minutes, 57.3% of total sleep time with an oxygen saturation less than 88%. Snoring Profile Snoring was mild during the baseline, eliminated during the titration. Cardiac Profile During the diagnostic portion of the study, the EKG showed normal sinus rhythm. The average pulse rate was 70 bpm, minimum pulse rate was 55 bpm, and the maximum pulse rate was 103 bpm. No arrhythmias noted. During the treatment portion of the study, the EKG showed normal sinus rhythm. The average pulse rate was 69 bpm, minimum pulse rate was 55 bpm, and the maximum pulse rate was 88.0 bpm. No arrhythmias noted. EEG Profile EEG was unremarkable, no evidence of seizures. Assessment and Plan Assessment and Plan (1) Obstructive sleep apnea: Code(s): G47.33 - Obstructive sleep apnea (adult) (pediatric) Status: Acute Assessment and Plan: This split night sleep study on 07/09/2024 shows moderate obstructive sleep apnea, the apnea-hypopnea index is 18 with desaturation to 74% and 130.8 minutes spent below 88%, 61.8% of the baseline. She had hypoxemia out of proportion to the degree of sleep obstructive sleep apnea. There was no REM on the baseline. The patient required oxygen at 1 L/min during the baseline portion due to sustained hypoxemia. On a pressure of BiPAP 14/8 usinga small ResMed AirFit F20 full face mask, the patient spent 48.5 minutes in bed, 4 minutes awake, 35.5 minutes in non-REM and 9 minutes in REM. The sleep efficiency was 91.8%, residual apnea-hypopnea index was 1.3 and the mean saturation was 87.5 %. This is the optimal pressure. She was not started on O2 during the study because her saturation returned to 88% and higher during recovery from apneas while using BiPAP 14/8. The patient should be prescribed this ResMed equipment as well as tubing, filters and reservoir. This should be used with all episodes of sleep. Compliance should be reviewed within 31-90 days of starting therapy for usage greater than 4 hours per night greater than 70% of the nights. The patient should be asked about symptoms such as excessive daytime sleepiness, quality of sleep, decreased nocturia, increased mental functioning such as memory, mood, and concentration. BMI is 41. Weight management is advised. Clinical data suggests that weight loss of 10% can reduce the severity of respiratory events and snoring and improve AHI by as much as 25%. Data The data obtained during this sleep study is adequate for interpretation. Certification This sleep study has been reviewed by a board certified sleep medicine physician.
[2024-08-07 22:34] VITALS: BMI 41.8
== END 2024-07-10 08:00 | disposition home or self-care (01) ==
PROVIDERS: PCP Internal Medicine; Visit Provider Internal Medicine Pulmonary Disease
DX: G47.30 Sleep apnea, unspecified (principal); G47.33 Obstructive sleep apnea (adult) (pediatric)
CPT/HCPCS: 95811

== ENCOUNTER 2024-09-04 07:36 | Outpatient (RCR) | payer MEDICARE, OTHER, SELFPAY ==
[2024-08-27 13:55] VITALS: BMI 39.7
--- NOTE | 2024-09-18 08:32 | PCWOUND ---
WOCN NOTE patient's friend called wound center to cancel appointment for today(09/18/24) due to patient being at [facility] for back issues. Friend states that the patient may have to have surgery. Patient's friend to keep wound center updated on status and to contact office when new appointment is needed.
== END 2024-10-10 08:12 | disposition home or self-care (01) ==
LOC: ANHWOC 07:36
PROVIDERS: PCP Internal Medicine; Visit Provider Internal Medicine
DX: S81.801A Unspecified open wound, right lower leg, initial encounter (principal)
CPT/HCPCS: 99214; 99215; A9270; G0463

== ENCOUNTER 2024-09-17 17:52 | Emergency (ER) | payer MEDICARE, OTHER, SELFPAY ==
--- NOTE | ~2024-09-17 | CT_ITS ---
History: Bowel incontinence PROCEDURE: CT lumbar spine without intravenous contrast. COMPARISON: None TECHNIQUE: Multiple contiguous axial images of the lumbar spine were performed without the administration of int ravenous contrast. DLP: 1034 mGy-cm FINDINGS: Heterogeneous appearance of the bone marrow is present for which systemic malignancy is suspected. Within the abdomen: The uterus is enlarged and nodular demonstrating multiple bulky calcifications, c onsistent with fibroid disease. The rectum is distended with stool which demonstrates mural thickening and infiltration of the presac ral space, findings consistent with fecal impaction. No acute compression fracture is identified. Significant degenerative disease is identified at all levels of the lumbar spine with osteophyte form ation, disc space narrowing, endplate changes and vacuum phenomena. Significant facet arthropathy is also noted. At the level of L1/L2: a broad-based disc protrusion with significant mass effect on both the spinal canal and bilateral neural foramen. At the level of L2/L3: a left paracentral disc protrusion with mass effect on the spinal canal and le ft neural foramen. At the level of L3/L4: A broad-based disc protrusion with mass effect on the spinal canal and bilater al neural foramen. Hypertrophy of the ligamentum flavum is also noted, contributing to the degree of spinal stenosis. At the level of L4/L5, is a broad-based disc protrusion with significant mass effect on both the spin al canal and bilateral neural foramen. At the level of L5/S1: Is a central disc protrusion with mass effect on the spinal canal. 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 Additional findings suggesting fecal impaction, likely contributing to patient's presenting symptoms. Fibroid uterus. In addition, heterogeneous appearance of the bone marrow for which a systemic process is suspected. Reviewed, dictated and finalized at location A. 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 Additional findings suggesting fecal impaction, likely contributing to patient' s presenting symptoms. Fibroid uterus. In addition, heterogeneous appearance of the bone marrow for which a systemic p rocess is suspected.
--- NOTE | ~2024-09-17 | XR_ITS ---
Exam: Abdomen 1V HISTORY: constipation COMPARISON: None. TECHNIQUE: Supine images of the abdomen FINDINGS: Bowel gas pattern is nonspecific and non-obstructive. No air is identified within the rectum. There is no free air or deep sulci. No pathologic calcifications are seen. Lung bases are unremarkable. 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 Post left SI joint intervention. IMPRESSION: Nonspecific, nonobstructive bowel gas pattern without air in the rectum. Reviewed, dictated and finalized at location A.
--- OUTSIDE RECORDS SUMMARY | 2024-09-17 17:55 | XMS_ITS | Referral Summary ---
Author Organization [facility] Address [address] [place] [address] Care Team Providers Care Signing Teacher Name Role Phone Eugene Moore MD Primary Care Provider + [phone] Allergies No known active allergies Medications aspirin [...] on file Legal Sex Female 4:40 AM INDUSTRIAL GAS SERVICER SUPERVISOR Gender Identity Not on file Sexual Orientation Not on file Last Filed Vital Signs Vital Sign Reading Time Taken Comments Blood Pressure 135/90 08/16/2018 10:43 AM INDUSTRIAL GAS SERVICER SUPERVISOR Pulse 78 08/16/2018 10:43 AM INDUSTRIAL GAS SERVICER SUPERVISOR Temperature - - Respiratory Rate - - Oxygen Saturation - - Inhaled Oxygen Concentration - - Weight 140.6 kg (310 lb) 08/16/2018 10:43 AM INDUSTRIAL GAS SERVICER SUPERVISOR Height 160 cm (5' 3 ) 08/16/2018 10:43 AM INDUSTRIAL GAS SERVICER SUPERVISOR Body Mass Index 54.91 08/16/2018 10:43 AM INDUSTRIAL GAS SERVICER SUPERVISOR Plan of Treatment Not on file Insurance MEDICARE [facility] MEDICARE [facility] Care Teams Signing Teacher Relationship Specialty Start Date End Date Eugene Moore MD PCP - General 09/08/16
--- OUTSIDE RECORDS SUMMARY | 2024-09-17 17:56 | XMS_ITS | CONTINUITY OF CARE DOCUMENT ---
Author Name faina eisenberg Address Unknown Organization [facility] Address [address] [place] [address] Phone [phone] Care Team Providers Care Silver Holloware Assembler Name Role Phone Antonio DIAS, Jm Jacob Unavailable [phone] KEYONA DIAS, MICHAEL Head Unavailable MICHAEL RAND MD Unavailable [phone] INSURANCE PROVIDERS Payer name Policy type / Coverage type [place] red democr[employer] ID [facility] [id number]
--- OUTSIDE RECORDS SUMMARY | 2024-09-17 17:56 | XMS_ITS | Data Portability ---
Author Organization [facility] Address [address] [place] [address] Care Team Providers Care Manager Transfer Name Role Phone MICHAEL MOORE Primary Care Provider SHANTHI MCKENZIE Associate Relations Specialist Assessment Encounter Date Assessment Date Assessment LastModified by Organization Details LastModified Time 10/27/2023 10/27/2023 LDCT understand significance of a positive test which may be included but not limited to yearly follow-ups and invasive testing referral to specialist and she agrees to getting the test done her other diagnosis and the assessment and plan of been discussed she follows with specialist for her meningioma in Sun to follow-up follow-up 3 months obtain old records [email or web address] Not available 11/21/2023 21:35:12 04/23/2024 04/23/2024 her blood pressure is controlled she will get a flu shot blood work will be ordered she is also getting set up with sleep study we will follow up with me in 4 months we will await the results of the blood work [email or web address] Not available 04/27/2024 21:24:26 07/23/2024 07/23/2024 doxycycline 100 b.i.d. 10 days. She can continue with her compression wraps. Smoking pivoting that she stops quitting tobacco care instructions she will call in 48 hours with update in her leg [email or web address] Not available 07/27/2024 23:15:51 08/20/2024 08/20/2024 smoking cessation discussed healthy lifestyle care instructions obtain her colonoscopy report. Blood work Prevnar mammogram wound care refill meds follow up with me in 3 months [email or web address] Not available 08/25/2024 13:32:23 Plan of Treatment Reminders Order Date Submit Date Provider Last Modified By Organization Details Last Modified Time Details Appointments ANY 15 2024 02:15P Cecil Moore MD Not available Not available Not available Lab HbA1c (hemoglob in A1c), blood 2024 025 [facility], [address], [place], [address], 08/21/2024 08:28:21 lipid panel, serum 2024 025 [facility], [address], [place], [address], 08/21/2024 08:28:18 CMP, serum or plasma 2024 025 [facility], [address], [place], [address], 08/21/2024 08:28:19 CBC w/ auto diff 2024 025 [facility], [address], [place], [address], 08/21/2024 08:28:22 HbA1c (hemoglob in A1c), blood 2023 024 [facility], [address], [place], [address], 04/24/2024 13:14:14 CBC w/ auto diff 2023 024 [facility], [address], [place], [address], 04/24/2024 13:14:16 CMP, serum or plasma 2023 024 [facility], [address], [place], [address], 04/24/2024 13:14:13 lipid panel, serum 2023 024 [facility], [address], [place], [address], 04/24/2024 13:14:11 HbA1c (hemoglob in A1c), blood 2023 024 [facility], [address], [place], [address], 11/16/2023 09:14:32 CBC w/ auto diff 2023 024 [facility], [address], [place], [address], 11/16/2023 09:14:33 CMP, serum or plasma 2023 024 [facility], [address], [place], [address], 11/16/2023 09:14:30 lipid panel, serum 2023 024 [facility], [address], [place], [address], 11/16/2023 09:14:29 Referral wound care referral 2024 025 [facility], [address], [place], [address], 08/28/2024 14:49:24 Procedures None recorded. Surgeries None recorded. Imaging MAMMO, screening , digital, bilateral 2024 025 [facility], [address], [place], [address], 09/17/2024 14:06:11 LDCT, chest, for lung cancer screening 2023 024 [facility], [address], [place], [address], 01/18/2024 07:21:35 Medication Orders Ozempic 1 mg/dose (4 mg/3 mL) subcutane ous pen injector [address] [id number], [address], [place], [place], [id number], 08/20/2024 16:49:23 doxycycli ne hyclate 100 mg tablet 2024 025 TAL[id number], [address], [place], [place], [id number], 08/20/2024 15:30:28 Lasix 20 mg tablet [address] [id number], [address], [place], [place], [id number], 10/27/2023 18:10:59 Ozempic 2 mg/dose (8 mg/3 mL) subcutane ous pen injector [address] [id number], [address], [place], [place], [id number], 10/27/2023 18:25:11 Patient TargetsNo targets recorded. Patient Instructions Encounter Date Encounter Id Patient Instructions Last Modified By Organization Details Last Modified Time 10/27/2023 [id number] Quitting Tobacco : Care Instructions Not available 10/27/2023 18:10:59 07/23/2024 [id number] Quitting Tobacco : Care Instructions Not available 07/23/2024 14:05:03 08/20/2024 [id number] A healthy lifestyle: care instructions Not available 08/20/2024 16:49:23 Reason for Referral Referring Physician: Micheal Moore, Internal Medicine, Encounter Date: 08/20/2024 Results Created Date Observation Date Name Description Value Unit Range Abnormal Flag Note LastModifiedBy Organization Detail LastModifiedTime 11/15/19 24 11/16/2023 LIPID PANEL cholesterol, total 150 mg/dL 100-19 9 Not Available [facility] ([facility]) [address] [facility] [place], [address], 11/16/2023 09:14:29 11/15/19 24 11/16/2023 LIPID PANEL triglyceride s 136 mg/dL 0-149 Not Available [facility] ([facility]) [address] [facility] [place], [address], 11/16/2023 09:14:29 11/15/19 24 11/16/2023 LIPID PANEL HDL cholesterol 56 mg/dL >39 Not Available [facility] ([facility]) [address] [facility] [place], [address], 11/16/2023 09:14:29 11/15/19 24 11/16/2023 LIPID PANEL VLDL cholesterol donald 24 mg/dL 5-40 Not Available [facility] ([facility]) [address] [facility] [place], [address], 11/16/2023 09:14:29 11/15/19 24 11/16/2023 LIPID PANEL LDL chol calc (nih) 70 mg/dL 0-99 Not Available [facility] ([facility]) [address] [facility] [place], [address], 11/16/2023 09:14:29 11/15/19 24 11/16/2023 COMP. METAB OLIC PANEL (14) glucose 92 mg/dL 70-99 Not Available [facility] ([facility]) [address] [facility] [place], [address], 11/16/2023 09:14:30 11/15/19 24 11/16/2023 COMP. METAB OLIC PANEL (14) BUN 13 mg/dL 8-27 Not Available [facility] ([facility]) [address] [facility] [place], [address], 11/16/2023 09:14:30 11/15/19 24 11/16/2023 COMP. METAB OLIC PANEL (14) creatinine 0.63 mg/dL 0.57-1 .00 Not Available [facility] ([facility]) [address] [facility], [place], [address], 11/16/2023 09:14:30 11/15/19 24 11/16/2023 COMP. METAB OLIC PANEL (14) eGFR 97 mL/mi n/1.7 3 >59 Not Available [facility] ([facility]) [address] [facility], [place], [address], 11/16/2023 09:14:30 11/15/19 24 11/16/2023 COMP. METAB OLIC PANEL (14) BUN/creatini ne ratio 21 12-28 Not Available [facility] ([facility]) [address] [facility], [place], [address], 11/16/2023 09:14:30 11/15/19 24 11/16/2023 COMP. METAB OLIC PANEL (14) sodium 139 mmol/ L 134-14 4 Not Available [facility] ([facility]) [address] [place], [address], 11/16/2023 09:14:30 11/15/19 24 11/16/2023 COMP. METAB OLIC PANEL (14) potassium 4.3 mmol/ L 3.5-5. 2 Not Available [facility] ([facility]) [address] [facility], [place], [address], 11/16/2023 09:14:30 11/15/19 24 11/16/2023 COMP. METAB OLIC PANEL (14) chloride 98 mmol/ L 96-106 Not Available [facility] ([facility]) [address] [facility], [place], [address], 11/16/2023 09:14:30 11/15/19 24 11/16/2023 COMP. METAB OLIC PANEL (14) carbon dioxide, total 22 mmol/ L 20-29 Not Available [facility] ([facility]) [address] [facility], [place], [address], 11/16/2023 09:14:30 11/15/19 24 11/16/2023 COMP. METAB OLIC PANEL (14) calcium 10.1 mg/dL 8.7-10 .3 Not Available [facility] ([facility]) [address] [facility], [place], [address], 11/16/2023 09:14:30 11/15/19 24 11/16/2023 COMP. METAB OLIC PANEL (14) protein, total 7.6 g/dL 6.0-8. 5 Not Available [facility] ([facility]) [address] [facility], [place], [address], 11/16/2023 09:14:30 11/15/19 24 11/16/2023 COMP. METAB OLIC PANEL (14) albumin 4.4 g/dL 3.9-4. 9 Not Available [facility] ([facility]) [address] [facility], [place], [address], 11/16/2023 09:14:30 11/15/19 24 11/16/2023 COMP. METAB OLIC PANEL (14) globulin, total 3.2 g/dL 1.5-4. 5 Not Available [facility] ([facility]) [address] [facility], [place], [address], 11/16/2023 09:14:30 11/15/19 24 11/16/2023 COMP. METAB OLIC PANEL (14) A/G ratio 1.4 1.2-2. 2 Not Available [facility] ([facility]) [address] [facility] [place], [address], 11/16/2023 09:14:30 11/15/19 24 11/16/2023 COMP. METAB OLIC PANEL (14) bilirubin, total 0.4 mg/dL 0.0-1. 2 Not Available [facility] ([facility]) [address] [facility], [place], [address], 11/16/2023 09:14:30 11/15/19 24 11/16/2023 COMP. METAB OLIC PANEL (14) alkaline phosphatase 106 IU/L 44-121 Not Available [facility] ([facility]) [address] [facility], [place], [address], 11/16/2023 09:14:30 11/15/19 24 11/16/2023 COMP. METAB OLIC PANEL (14) AST (SGOT) 16 IU/L 0-40 Not Available [facility] ([facility]) [address] [facility], [place], [address], 11/16/2023 09:14:30 11/15/19 24 11/16/2023 COMP. METAB OLIC PANEL (14) ALT (SGPT) 13 IU/L 0-32 Not Available [facility] ([facility]) [address] [facility], [place], [address], 11/16/2023 09:14:30 11/15/19 24 11/16/2023 HEMOG LOBIN A1C hemoglobin A1C 6.8 % 4.8-5. 6 above high normal Predi abete s: 5.7 - 6.4 Diabe kecia: >6.4 Glyce francesco contr ol for adult s with diabe kecia: <7.0 Not Available [facility] ([facility]) [address] [facility], [place], [address], 11/16/2023 09:14:32 11/15/19 24 11/16/2023 CBC WITH DIFFE RENTI AL/PL ATELE T WBC 6.4 x10e3 /uL 3.4-10 .8 Not Available [facility] ([facility]) [address] [facility], [place], [address], 11/16/2023 09:14:33 11/15/19 24 11/16/2023 CBC WITH DIFFE RENTI AL/PL ATELE T RBC 4.13 x10e6 /uL 3.77-5 .28 Not Available [facility] ([facility]) [address] [facility], [place], [address], 11/16/2023 09:14:33 11/15/19 24 11/16/2023 CBC WITH DIFFE RENTI AL/PL ATELE T hemoglobin 13.2 g/dL 11.1-1 5.9 Not Available [facility] ([facility]) [address] [facility], [place], [address], 11/16/2023 09:14:33 11/15/19 24 11/16/2023 CBC WITH DIFFE RENTI AL/PL ATELE T hematocrit 38.6 % 34.0-4 6.6 Not Available [facility] ([facility]) [address] [place], [address], 11/16/2023 09:14:33 11/15/19 24 11/16/2023 CBC WITH DIFFE RENTI AL/PL ATELE T MCV 94 fL 79-97 Not Available [facility] ([facility]) [address] [place], [address], 11/16/2023 09:14:33 11/15/19 24 11/16/2023 CBC WITH DIFFE RENTI AL/PL ATELE T MCH 32.0 pg 26.6-3 3.0 Not Available [facility] ([facility]) [address] [place], [address], 11/16/2023 09:14:33 11/15/19 24 11/16/2023 CBC WITH DIFFE RENTI AL/PL ATELE T MCHC 34.2 g/dL 31.5-3 5.7 Not Available [facility] ([facility]) [address] [place], [address], 11/16/2023 09:14:33 11/15/19 24 11/16/2023 CBC WITH DIFFE RENTI AL/PL ATELE T RDW 13.8 % 11.7-1 5.4 Not Available [facility] ([facility]) [address] [facility], [place], [address], 11/16/2023 09:14:33 11/15/19 24 11/16/2023 CBC WITH DIFFE RENTI AL/PL ATELE T platelets 307 x10e3 /uL 150-45 0 Not Available [facility] ([facility]) [address] [facility], [place], [address], 11/16/2023 09:14:33 11/15/19 24 11/16/2023 CBC WITH DIFFE RENTI AL/PL ATELE T neutrophils 66 % notest ab. Not Available [facility] ([facility]) [address] [facility], [place], [address], 11/16/2023 09:14:33 11/15/19 24 11/16/2023 CBC WITH DIFFE RENTI AL/PL ATELE T lymphs 21 % notest ab. Not Available [facility] ([facility]) [address] [facility], [place], [address], 11/16/2023 09:14:33 11/15/19 24 11/16/2023 CBC WITH DIFFE RENTI AL/PL ATELE T monocytes 8 % notest ab. Not Available [facility] ([facility]) [address] [facility], [place], [address], 11/16/2023 09:14:33 11/15/19 24 11/16/2023 CBC WITH DIFFE RENTI AL/PL ATELE T eos 4 % notest ab. Not Available [facility] ([facility]) [address] [facility], [place], [address], 11/16/2023 09:14:33 11/15/19 24 11/16/2023 CBC WITH DIFFE RENTI AL/PL ATELE T basos 1 % notest ab. Not Available [facility] ([facility]) [address] [facility], [place], [address], 11/16/2023 09:14:33 11/15/19 24 11/16/2023 CBC WITH DIFFE RENTI AL/PL ATELE T neutrophils (absolute) 4.2 x10e3 /uL 1.4-7. 0 Not Available [facility] ([facility]) [address] [facility], [place], [address], 11/16/2023 09:14:33 11/15/19 24 11/16/2023 CBC WITH DIFFE RENTI AL/PL ATELE T lymphs (absolute) 1.4 x10e3 /uL 0.7-3. 1 Not Available [facility] ([facility]) [address] [facility], [place], [address], 11/16/2023 09:14:33 11/15/19 24 11/16/2023 CBC WITH DIFFE RENTI AL/PL ATELE T monocytes(ab solute) 0.5 x10e3 /uL 0.1-0. 9 Not Available [facility] ([facility]) [address] [facility], [place], [address], 11/16/2023 09:14:33 11/15/19 24 11/16/2023 CBC WITH DIFFE RENTI AL/PL ATELE T eos (absolute) 0.3 x10e3 /uL 0.0-0. 4 Not Available [facility] ([facility]) [address] [facility], [place], [address], 11/16/2023 09:14:33 11/15/19 24 11/16/2023 CBC WITH DIFFE RENTI AL/PL ATELE T baso (absolute) 0.1 x10e3 /uL 0.0-0. 2 Not Available [facility] ([facility]) [address] [facility], [place], [address], 11/16/2023 09:14:33 11/15/19 24 11/16/2023 CBC WITH DIFFE RENTI AL/PL ATELE T immature granulocytes 0 % notest ab. Not Available [facility] ([facility]) [address] [facility], [place], [address], 11/16/2023 09:14:33 11/15/1911/16/2023 CBC WITH DIFFE RENTI AL/PL ATELE T immature grans (abs) 0.0 x10e3 /uL 0.0-0. 1 Not Available [facility] ([facility]) [address] [facility], [place], [address], 11/16/2023 09:14:33 04/23/2004/24/2024 LIPID PANEL cholesterol, total 162 mg/dL 100-19 9 Not Available [facility] ([facility]) [address] [facility], [place], [address], 04/24/2024 13:14:11 04/23/2004/24/2024 LIPID PANEL triglyceride s 80 mg/dL 0-149 Not Available [facility] ([facility]) [address] [facility], [place], [address], 04/24/2024 13:14:11 04/23/2004/24/2024 LIPID PANEL HDL cholesterol 69 mg/dL >39 Not Available [facility] ([facility]) [address] [facility], [place], [address], 04/24/2024 13:14:11 04/23/2004/24/2024 LIPID PANEL VLDL cholesterol donald 15 mg/dL 5-40 Not Available [facility] ([facility]) [address] [place], [address], 04/24/2024 13:14:11 04/23/2004/24/2024 LIPID PANEL LDL chol calc ([facility]) 78 mg/dL 0-99 Not Available [facility] ([facility]) [address] [place], [address], 04/24/2024 13:14:11 04/23/20 24 04/24/2024 COMP. METAB OLIC PANEL (14) glucose 92 mg/dL 70-99 Not Available [facility] ([facility]) [address] [place], [address], 04/24/2024 13:14:13 04/23/20 24 04/24/2024 COMP. METAB OLIC PANEL (14) BUN 15 mg/dL 8-27 Not Available [facility] ([facility]) [address] [place], [address], 04/24/2024 13:14:13 04/23/20 24 04/24/2024 COMP. METAB OLIC PANEL (14) creatinine 0.77 mg/dL 0.57-1 .00 Not Available [facility] ([facility]) [address] [place], [address], 04/24/2024 13:14:13 04/23/20 24 04/24/2024 COMP. METAB OLIC PANEL (14) eGFR 84 mL/mi n/1.7 3 >59 Not Available [facility] ([facility]) [address] [place], [address], 04/24/2024 13:14:13 04/23/20 24 04/24/2024 COMP. METAB OLIC PANEL (14) BUN/creatini ne ratio 19 12-28 Not Available [facility] ([facility]) [address] [place], [address], 04/24/2024 13:14:13 04/23/20 24 04/24/2024 COMP. METAB OLIC PANEL (14) sodium 141 mmol/ L 134-14 4 Not Available [facility] ([facility]) [address] [place], [address], 04/24/2024 13:14:13 04/23/20 24 04/24/2024 COMP. METAB OLIC PANEL (14) potassium 4.4 mmol/ L 3.5-5. 2 Not Available [facility] ([facility]) [address] [facility], [place], [address], 04/24/2024 13:14:13 04/23/20 24 04/24/2024 COMP. METAB OLIC PANEL (14) chloride 100 mmol/ L 96-106 Not Available [facility] ([facility]) [address] [place], [address], 04/24/2024 13:14:13 04/23/20 24 04/24/2024 COMP. METAB OLIC PANEL (14) carbon dioxide, total 24 mmol/ L 20-29 Not Available [facility] ([facility]) [address] [facility], [place], [address], 04/24/2024 13:14:13 04/23/20 24 04/24/2024 COMP. METAB OLIC PANEL (14) calcium 10.2 mg/dL 8.7-10 .3 Not Available [facility] ([facility]) [address] [facility] [place], [address], 04/24/2024 13:14:13 04/23/20 24 04/24/2024 COMP. METAB OLIC PANEL (14) protein, total 7.3 g/dL 6.0-8. 5 Not Available [facility] ([facility]) [address] [facility] [place], [address], 04/24/2024 13:14:13 04/23/20 24 04/24/2024 COMP. METAB OLIC PANEL (14) albumin 4.5 g/dL 3.9-4. 9 Not Available [facility] ([facility]) [address] [facility] [place], [address], 04/24/2024 13:14:13 04/23/20 24 04/24/2024 COMP. METAB OLIC PANEL (14) globulin, total 2.8 g/dL 1.5-4. 5 Not Available [facility] ([facility]) [address] [facility], [place], [address], 04/24/2024 13:14:13 04/23/20 24 04/24/2024 COMP. METAB OLIC PANEL (14) bilirubin, total 0.3 mg/dL 0.0-1. 2 Not Available [facility] ([facility]) [address] [place], [address], 04/24/2024 13:14:13 04/23/20 24 04/24/2024 COMP. METAB OLIC PANEL (14) alkaline phosphatase 108 IU/L 44-121 Not Available [facility] ([facility]) [address] [facility], [place], [address], 04/24/2024 13:14:13 04/23/20 24 04/24/2024 COMP. METAB OLIC PANEL (14) AST (SGOT) 14 IU/L 0-40 Not Available [facility] ([facility]) [address] [facility], [place], [address], 04/24/2024 13:14:13 04/23/20 24 04/24/2024 COMP. METAB OLIC PANEL (14) ALT (SGPT) 10 IU/L 0-32 Not Available [facility] ([facility]) [address] [place], [address], 04/24/2024 13:14:13 04/23/20 24 04/24/2024 HEMOG LOBIN A1C hemoglobin A1C 6.3 % 4.8-5. 6 above high normal Predi abete s: 5.7 - 6.4 Diabe kecia: >6.4 Glyce francesco contr ol for adult s with diabe kecia: <7.0 Not Available [facility] ([facility]) [address] [facility], [place], [address], 04/24/2024 13:14:14 04/23/20 24 04/24/2024 CBC WITH DIFFE RENTI AL/PL ATELE T WBC 5.6 x10e3 /uL 3.4-10 .8 Not Available [facility] ([facility]) [address] [facility], [place], [address], 04/24/2024 13:14:16 04/23/20 24 04/24/2024 CBC WITH DIFFE RENTI AL/PL ATELE T RBC 4.20 x10e6 /uL 3.77-5 .28 Not Available [facility] ([facility]) [address] [facility], [place], [address], 04/24/2024 13:14:16 04/23/20 24 04/24/2024 CBC WITH DIFFE RENTI AL/PL ATELE T hemoglobin 13.2 g/dL 11.1-1 5.9 Not Available [facility] ([facility]) [address] [facility], [place], [address], 04/24/2024 13:14:16 04/23/20 24 04/24/2024 CBC WITH DIFFE RENTI AL/PL ATELE T hematocrit 39.7 % 34.0-4 6.6 Not Available [facility] ([facility]) [address] [place], [address], 04/24/2024 13:14:16 04/23/20 24 04/24/2024 CBC WITH DIFFE RENTI AL/PL ATELE T MCV 95 fL 79-97 Not Available [facility] ([facility]) [address] [place], [address], 04/24/2024 13:14:16 04/23/20 24 04/24/2024 CBC WITH DIFFE RENTI AL/PL ATELE T MCH 31.4 pg 26.6-3 3.0 Not Available [facility] ([facility]) [address] [facility], [place], [address], 04/24/2024 13:14:16 04/23/20 24 04/24/2024 CBC WITH DIFFE RENTI AL/PL ATELE T MCHC 33.2 g/dL 31.5-3 5.7 Not Available [facility] ([facility]) [address] [facility], [place], [address], 04/24/2024 13:14:16 04/23/20 24 04/24/2024 CBC WITH DIFFE RENTI AL/PL ATELE T RDW 14.2 % 11.7-1 5.4 Not Available [facility] ([facility]) [address] [facility], [place], [address], 04/24/2024 13:14:16 04/23/20 24 04/24/2024 CBC WITH DIFFE RENTI AL/PL ATELE T platelets 295 x10e3 /uL 150-45 0 Not Available [facility] ([facility]) [address] [facility], [place], [address], 04/24/2024 13:14:16 04/23/20 24 04/24/2024 CBC WITH DIFFE RENTI AL/PL ATELE T neutrophils 60 % notest ab. Not Available [facility] ([facility]) [address] [facility], [place], [address], 04/24/2024 13:14:16 04/23/20 24 04/24/2024 CBC WITH DIFFE RENTI AL/PL ATELE T lymphs 26 % notest ab. Not Available [facility] ([facility]) [address] [facility], [place], [address], 04/24/2024 13:14:16 04/23/20 24 04/24/2024 CBC WITH DIFFE RENTI AL/PL ATELE T monocytes 9 % notest ab. Not Available [facility] ([facility]) [address] [place], [address], 04/24/2024 13:14:16 04/23/20 24 04/24/2024 CBC WITH DIFFE RENTI AL/PL ATELE T eos 4 % notest ab. Not Available [facility] ([facility]) [address] [facility] [place], [address], 04/24/2024 13:14:16 04/23/20 24 04/24/2024 CBC WITH DIFFE RENTI AL/PL ATELE T basos 1 % notest ab. Not Available [facility] ([facility]) [address] [facility], [place], [address], 04/24/2024 13:14:16 04/23/20 24 04/24/2024 CBC WITH DIFFE RENTI AL/PL ATELE T neutrophils (absolute) 3.4 x10e3 /uL 1.4-7. 0 Not Available [facility] ([facility]) [address] [facility], [place], [address], 04/24/2024 13:14:16 04/23/20 24 04/24/2024 CBC WITH DIFFE RENTI AL/PL ATELE T lymphs (absolute) 1.5 x10e3 /uL 0.7-3. 1 Not Available [facility] ([facility]) [address] [facility], [place], [address], 04/24/2024 13:14:16 04/23/20 24 04/24/2024 CBC WITH DIFFE RENTI AL/PL ATELE T monocytes(ab solute) 0.5 x10e3 /uL 0.1-0. 9 Not Available [facility] ([facility]) [address] [facility], [place], [address], 04/24/2024 13:14:16 04/23/20 24 04/24/2024 CBC WITH DIFFE RENTI AL/PL ATELE T eos (absolute) 0.2 x10e3 /uL 0.0-0. 4 Not Available [facility] ([facility]) [address] [place], [address], 04/24/2024 13:14:16 04/23/20 24 04/24/2024 CBC WITH DIFFE RENTI AL/PL ATELE T baso (absolute) 0.1 x10e3 /uL 0.0-0. 2 Not Available [facility] ([facility]) [address] [facility], [place], [address], 04/24/2024 13:14:16 04/23/20 24 04/24/2024 CBC WITH DIFFE RENTI AL/PL ATELE T immature granulocytes 0 % notest ab. Not Available [facility] ([facility]) [address] [facility], [place], [address], 04/24/2024 13:14:16 04/23/20 24 04/24/2024 CBC WITH DIFFE RENTI AL/PL ATELE T immature grans (abs) 0.0 x10e3 /uL 0.0-0. 1 Not Available [facility] ([facility]) [address] [facility], [place], [address], 04/24/2024 13:14:16 08/21/19 25 08/21/2024 LIPID PANEL cholesterol, total 173 mg/dL 100-19 9 Not Available [facility] ([facility]) [address] [facility], [place], [address], 08/21/2024 08:28:17 08/21/19 25 08/21/2024 LIPID PANEL triglyceride s 91 mg/dL 0-149 Not Available [facility] ([facility]) [address] [facility], [place], [address], 08/21/2024 08:28:17 08/21/19 25 08/21/2024 LIPID PANEL HDL cholesterol 91 mg/dL >39 Not Available [facility] ([facility]) [address] [facility], [place], [address], 08/21/2024 08:28:17 08/21/19 25 08/21/2024 LIPID PANEL VLDL cholesterol donald 16 mg/dL 5-40 Not Available [facility] ([facility]) [address] [facility], [place], [address], 08/21/2024 08:28:17 08/21/19 25 08/21/2024 LIPID PANEL LDL chol calc ([facility]) 66 mg/dL 0-99 Not Available [facility] ([facility]) [address] [place], [address], 08/21/2024 08:28:17 08/21/19 25 08/21/2024 COMP. METAB OLIC PANEL (14) glucose 91 mg/dL 70-99 Not Available [facility] ([facility]) [address] [place], [address], 08/21/2024 08:28:19 08/21/19 25 08/21/2024 COMP. METAB OLIC PANEL (14) BUN 21 mg/dL 8-27 Not Available [facility] ([facility]) [address] [place], [address], 08/21/2024 08:28:19 08/21/19 25 08/21/2024 COMP. METAB OLIC PANEL (14) creatinine 0.73 mg/dL 0.57-1 .00 Not Available [facility] ([facility]) [address] [place], [address], 08/21/2024 08:28:19 08/21/19 25 08/21/2024 COMP. METAB OLIC PANEL (14) eGFR 90 mL/mi n/1.7 3 >59 Not Available [facility] ([facility]) [address] [place], [address], 08/21/2024 08:28:19 08/21/19 25 08/21/2024 COMP. METAB OLIC PANEL (14) BUN/creatini ne ratio 29 12-28 above high normal Not Available [facility] ([facility]) [address] [place], [address], 08/21/2024 08:28:19 08/21/19 25 08/21/2024 COMP. METAB OLIC PANEL (14) sodium 141 mmol/ L 134-14 4 Not Available [facility] ([facility]) [address] [place], [address], 08/21/2024 08:28:19 08/21/19 25 08/21/2024 COMP. METAB OLIC PANEL (14) potassium 4.3 mmol/ L 3.5-5. 2 Not Available [facility] ([facility]) [address] [facility] [place], [address], 08/21/2024 08:28:19 08/21/19 25 08/21/2024 COMP. METAB OLIC PANEL (14) chloride 100 mmol/ L 96-106 Not Available [facility] ([facility]) [address] [facility] [place], [address], 08/21/2024 08:28:19 08/21/19 25 08/21/2024 COMP. METAB OLIC PANEL (14) carbon dioxide, total 24 mmol/ L 20-29 Not Available [facility] ([facility]) [address] [facility] [place], [address], 08/21/2024 08:28:19 08/21/19 25 08/21/2024 COMP. METAB OLIC PANEL (14) calcium 10.0 mg/dL 8.7-10 .3 Not Available [facility] ([facility]) [address] [facility] [place], [address], 08/21/2024 08:28:19 08/21/19 25 08/21/2024 COMP. METAB OLIC PANEL (14) protein, total 7.9 g/dL 6.0-8. 5 Not Available [facility] ([facility]) [address] [facility] [place], [address], 08/21/2024 08:28:19 08/21/19 25 08/21/2024 COMP. METAB OLIC PANEL (14) albumin 4.2 g/dL 3.9-4. 9 Not Available [facility] ([facility]) [address] [facility] [place], [address], 08/21/2024 08:28:19 08/21/19 25 08/21/2024 COMP. METAB OLIC PANEL (14) globulin, total 3.7 g/dL 1.5-4. 5 Not Available [facility] ([facility]) [address] [place], [address], 08/21/2024 08:28:19 08/21/19 25 08/21/2024 COMP. METAB OLIC PANEL (14) bilirubin, total 0.3 mg/dL 0.0-1. 2 Not Available [facility] ([facility]) [address] [place], [address], 08/21/2024 08:28:19 08/21/19 25 08/21/2024 COMP. METAB OLIC PANEL (14) alkaline phosphatase 122 IU/L 44-121 above high normal Not Available [facility] ([facility]) [address] [place], [address], 08/21/2024 08:28:19 08/21/19 25 08/21/2024 COMP. METAB OLIC PANEL (14) AST (SGOT) 23 IU/L 0-40 Not Available [facility] ([facility]) [address] [place], [address], 08/21/2024 08:28:19 08/21/19 25 08/21/2024 COMP. METAB OLIC PANEL (14) ALT (SGPT) 18 IU/L 0-32 Not Available [facility] ([facility]) [address] [place], [address], 08/21/2024 08:28:19 08/21/19 25 08/21/2024 HEMOG LOBIN A1C hemoglobin A1C 6.1 % 4.8-5. 6 above high normal Predi abete s: 5.7 - 6.4 Diabe kecia: >6.4 Glyce francesco contr ol for adult s with diabe kecia: <7.0 Not Available [facility] ([facility]) [address] [facility], [place], [address], 08/21/2024 08:28:20 08/21/19 25 08/21/2024 CBC WITH DIFFE RENTI AL/PL ATELE T WBC 5.1 x10e3 /uL 3.4-10 .8 Not Available [facility] ([facility]) [address] [facility], [place], [address], 08/21/2024 08:28:22 08/21/19 25 08/21/2024 CBC WITH DIFFE RENTI AL/PL ATELE T RBC 4.14 x10e6 /uL 3.77-5 .28 Not Available [facility] ([facility]) [address] [facility], [place], [address], 08/21/2024 08:28:22 08/21/19 25 08/21/2024 CBC WITH DIFFE RENTI AL/PL ATELE T hemoglobin 12.6 g/dL 11.1-1 5.9 Not Available [facility] ([facility]) [address] [facility], [place], [address], 08/21/2024 08:28:22 08/21/19 25 08/21/2024 CBC WITH DIFFE RENTI AL/PL ATELE T hematocrit 38.3 % 34.0-4 6.6 Not Available [facility] ([facility]) [address] [place], [address], 08/21/2024 08:28:22 08/21/19 25 08/21/2024 CBC WITH DIFFE RENTI AL/PL ATELE T MCV 93 fL 79-97 Not Available [facility] ([facility]) [address] [facility], [place], [address], 08/21/2024 08:28:22 08/21/19 25 08/21/2024 CBC WITH DIFFE RENTI AL/PL ATELE T MCH 30.4 pg 26.6-3 3.0 Not Available [facility] ([facility]) [address] [facility], [place], [address], 08/21/2024 08:28:22 08/21/19 25 08/21/2024 CBC WITH DIFFE RENTI AL/PL ATELE T MCHC 32.9 g/dL 31.5-3 5.7 Not Available [facility] ([facility]) [address] [facility], [place], [address], 08/21/2024 08:28:22 08/21/19 25 08/21/2024 CBC WITH DIFFE RENTI AL/PL ATELE T RDW 15.9 % 11.7-1 5.4 above high normal Not Available [facility] ([facility]) [address] [facility], [place], [address], 08/21/2024 08:28:22 08/21/19 25 08/21/2024 CBC WITH DIFFE RENTI AL/PL ATELE T platelets 193 x10e3 /uL 150-45 0 Not Available [facility] ([facility]) [address] [facility], [place], [address], 08/21/2024 08:28:22 08/21/19 25 08/21/2024 CBC WITH DIFFE RENTI AL/PL ATELE T neutrophils 75 % notest ab. Not Available [facility] ([facility]) [address] [place], [address], 08/21/2024 08:28:22 08/21/19 25 08/21/2024 CBC WITH DIFFE RENTI AL/PL ATELE T lymphs 16 % notest ab. Not Available [facility] ([facility]) [address] [place], [address], 08/21/2024 08:28:22 08/21/19 25 08/21/2024 CBC WITH DIFFE RENTI AL/PL ATELE T monocytes 6 % notest ab. Not Available [facility] ([facility]) [address] [place], [address], 08/21/2024 08:28:22 08/21/19 25 08/21/2024 CBC WITH DIFFE RENTI AL/PL ATELE T eos 2 % notest ab. Not Available [facility] ([facility]) [address] [facility], [place], [address], 08/21/2024 08:28:22 08/21/19 25 08/21/2024 CBC WITH DIFFE RENTI AL/PL ATELE T basos 1 % notest ab. Not Available [facility] ([facility]) [address] [facility], [place], [address], 08/21/2024 08:28:22 08/21/19 25 08/21/2024 CBC WITH DIFFE RENTI AL/PL ATELE T neutrophils (absolute) 3.8 x10e3 /uL 1.4-7. 0 Not Available [facility] ([facility]) [address] [facility], [place], [address], 08/21/2024 08:28:22 08/21/19 25 08/21/2024 CBC WITH DIFFE RENTI AL/PL ATELE T lymphs (absolute) 0.8 x10e3 /uL 0.7-3. 1 Not Available [facility] ([facility]) [address] [facility], [place], [address], 08/21/2024 08:28:22 08/21/19 25 08/21/2024 CBC WITH DIFFE RENTI AL/PL ATELE T monocytes(ab solute) 0.3 x10e3 /uL 0.1-0. 9 Not Available [facility] ([facility]) [address] [place], [address], 08/21/2024 08:28:22 08/21/19 25 08/21/2024 CBC WITH DIFFE RENTI AL/PL ATELE T eos (absolute) 0.1 x10e3 /uL 0.0-0. 4 Not Available [facility] ([facility]) [address] [facility], [place], [address], 08/21/2024 08:28:22 08/21/19 25 08/21/2024 CBC WITH DIFFE RENTI AL/PL ATELE T baso (absolute) 0.0 x10e3 /uL 0.0-0. 2 Not Available [facility] ([facility]) [address] [facility], [place], [address], 08/21/2024 08:28:22 08/21/19 25 08/21/2024 CBC WITH DIFFE RENTI AL/PL ATELE T immature granulocytes 0 % notest ab. Not Available [facility] ([facility]) [address] [facility], [place], [address], 08/21/2024 08:28:22 08/21/19 25 08/21/2024 CBC WITH DIFFE RENTI AL/PL ATELE T immature grans (abs) 0.0 x10e3 /uL 0.0-0. 1 Not Available [facility] ([facility]) [address] [facility], [place], [address], 08/21/2024 08:28:22 01/18/20 24 01/17/2024 LDCT, chest , for lung cance r scree elli No observ ation record ed. [facility] [address] [address], [place], [address], 01/19/2024 11:47:28 03/12/20 24 03/12/2024 XR, chest , 2 view No observ ation record ed. [id number] [facility] [address] [facility], [place], [address], 03/24/2024 20:34:23 03/12/20 24 03/12/2024 six minut e walk test* No observ ation record ed. [id number] [facility] [address], [place], [address], 03/20/2024 23:10:22 03/13/20 24 03/12/2024 PFT, compl ete No observ ation record ed. [email or web address] [facility] [address], [place], [address], 03/24/2024 20:34:24 08/07/19 25 07/09/2024 home sleep study No observ ation record ed. [email or web address] [facility] [address] [facility] [address], [place], [address], 08/09/2024 11:06:37 Result Notes None recorded. Problems Name Problem SNOMED Code Status Onset Date Resolution Date Notes Provider Name and Address Organization Details Recorded Time Type 2 diabetes mellitus 71932556 Active 2023 Sis Burton [place], [place] [facility] 4 17:56:57 Nicotine dependence 39760297 Active 2023 Sis [place] [facility] 4 17:57:00 Essential hypertension 59664115 Active 2023 Sis [place] [facility] 4 17:57:01 Hyperlipidemia 87024638 Active 2023 Sis [place] [facility] 4 17:57:02 Edema of lower extremity 456428578 Active 2023 Sis Burton [place] [facility] 4 17:57:03 Intracranial meningioma 221530227 Active 2023 Michael Moore MD Attn: Paulina salgado,[address] [facility], [place], [address], [place] [facility] 4 21:32:05 Anxiety 03791536 Active 2023 Michael Moore MD Attn: Paulina salgado,[address] [facility], [place], [address], [place] [facility] 4 21:32:27 Problem Notes None recorded. Procedures Surgical History None recorded. Imaging Results Imaging Date Name Status LastModified by Radha mullen Details LastModified Time 01/17/2024 LDCT, chest, for lung cancer screening completed [facility] [address], [place], [address], 01/19/2024 11:47:28 03/12/2024 XR, chest, 2 view completed [address], [address], 03/24/2024 20:34:23 03/12/2024 six minute walk test* completed [address], [address], 03/20/2024 23:10:22 03/12/2024 PFT, complete completed [address] [place] [address], [address], 03/24/2024 20:34:24 07/09/2024 home sleep study completed [email or web address], [address], 08/09/2024 11:06:37 Procedure Notes None recorded. Medical Equipment None Reported. Allergies No known drug allergies Medications Name Sig Start Date Stop Date Status Note LastModified by Organization Details LastModified Time metformin 500 mg tablet TAKE 1 TABLET BY MOUTH TWICE DAILY active Not Available Not Available No t Available atorvasta tin 20 mg tablet TAKE 1 TABLET BY MOUTH EVERY DAY active Not Available Not Available No t Available nabumeton e 750 mg tablet TAKE 1 TABLET BY MOUTH TWICE DAILY active Not Available Not Available No t Available citalopra m 10 mg tablet TAKE 1 TABLET BY MOUTH DAILY active Not Available Not Available No t Available simvastat in 40 mg tablet TAKE 1 TABLET BY MOUTH DAILY 10/08 completed changed to to Atrovast atin per Dr Moore Not Available Not Available Not Available losartan 100 mg-hydroc hlorothia zide 25 mg tablet TAKE 1 TABLET BY MOUTH DAILY IN THE MORNING active Not Available Not Available No t Available baclofen 10 mg tablet TAKE 1 TABLET BY MOUTH THREE TIMES DAILY NEEDED active Not Available Not Available No t Available amlodipin e 10 mg tablet TAKE 1 TABLET BY MOUTH EVERY DAY 2024 active Not Available Not Available Not Avai lable doxycycli ne monohydra te 100 mg capsule TAKE 1 CAPSULE BY MOUTH TWICE DAILY FOR 7 DAYS 08/20 completed Not Available Not Available Not Available gabapenti n 300 mg capsule active Not Available Not Available Not Available monteluka st 10 mg tablet TAKE 1 TABLET BY MOUTH DAILY active Not Available Not Available No t Available furosemid e 20 mg tablet TAKE 1 TABLET BY MOUTH EVERY DAY NEEDED active Not Available Not Available No t Available albuterol sulfate HFA 90 mcg/actua tion aerosol inhaler INHALE 1 TO 2 PUFFS BY MOUTH EVERY 4 HOURS NEEDED FOR WHEEZING DIRECTED active Not Available Not Available No t Available fluticaso ne propionat e 50 mcg/actua tion nasal spray,britney pension SHAKE LIQUID AND USE 2 SPRAYS IN EACH NOSTRIL EVERY DAY active Not Available Not Available No t Available doxycycli ne hyclate 100 mg tablet TAKE 1 TABLET BY MOUTH TWICE DAILY FOR 10 DAYS 08/20 completed Not Available Not Available Not Available amoxicill in 875 mg-potass ium clavulana te 125 mg tablet TAKE 1 TABLET BY MOUTH TWICE DAILY 10/26 completed Not Available Not Available Not Available eszopiclo ne 2 mg tablet 08/20 completed Not Available Not Available Not Available Breo Ellipta 100 mcg-25 mcg/dose powder for inhalatio n INHALE 1 PUFF BY MOUTH EVERY DAY active Not Available Not Available No t Available Ozempic 1 mg/dose (4 mg/3 mL) subcutane ous pen injector INJECT 1 MG UNDER THE SKIN EVERY WEEK active Not Available Not Available No t Available Ozempic 2 mg/dose (8 mg/3 mL) subcutane ous pen injector INJECT 2 MG UNDER THE SKIN WEEKLY active Not Available Not Available No t Available Ozempic 0.25 mg or 0.5 mg (2 mg/3 mL) subcutane ous pen injector 10/26 completed Not Available Not Available Not Available Vitals Date Recorded Body weight Body mass index (BMI) Body height Oxygen saturation Oxygen saturation in Arterial blood by Pulse oximetry Heart rate Systolic blood pressure Diastolic blood pressure Provider Name and Address Organization Details Last Updated DateTime 4 832207. 09 g 49.1 kg/m2 160.02 cm 99 % 99 % 87 /min 122 mm[Hg] 60 mm[Hg] Jose A Rodgers MA [facility] 4 16:13:52 Date Recorded Body height Heart rate Oxygen saturation Oxygen saturation in Arterial blood by Pulse oximetry Systolic blood pressure Diastolic blood pressure Provider Name and Address Organization Details Last Updated DateTime 4 160.02 cm 77 /min 95 % 95 % 128 mm[Hg] 68 mm[Hg] Ketty Rivera MA [facility] 4 15:22:42 Date Recorded Body height Heart rate Oxygen saturation Oxygen saturation in Arterial blood by Pulse oximetry Systolic blood pressure Diastolic blood pressure Provider Name and Address Organization Details Last Updated DateTime 5 160.02 cm 78 /min 97 % 97 % 132 mm[Hg] 70 mm[Hg] Bria Lyon MA [facility] 5 12:33:18 Date Recorded Body height Body mass index (BMI) Body weight Heart rate Oxygen saturation Oxygen saturation in Arterial blood by Pulse oximetry Systolic blood pressure Diastolic blood pressure Provider Name and Address Organization Details Last Updated DateTime 5 160.02 cm 39.7 kg/m2 704218. 05 g 89 /min 92 % 92 % 112 mm[Hg] 72 mm[Hg] Chantal Chowdhury MA [facility] 5 15:26:27 Social History Question Answer Notes LastModified by Organizat ion Details LastModified Time Tobacco Smoking Status Current Every Day Smoker Jose A Rodgers MA null, [facility] 10/27/2023 16:04:58 Do You Have An Advance Directive? Yes Information not available 10/27/2023 What Is Your Level Of Alcohol Consumption? Occasional Information not available 10/27/2023 Are You Blind Or Do You Have Difficulty Seeing? Yes Wears Glasses Information not available 10/27/2023 What Is Your Level Of Caffeine Consumption? Moderate Information not available 10/27/2023 In The 14 Days Before Symptom Onset, Have You Had Close Contact With A [facility] COVID-19 While That Case Was Ill? No Information not available 08/20/2024 In The 14 Days Before Symptom Onset, Have You Had Close Contact With A Person Who Is Under Investigation For COVID-19 While That Person Was Ill? No Information not available 08/20/2024 Have You Been To An Area Known To Be High Risk For COVID-19? No Information not available 08/20/2024 Are You Currently Employed? No Information not available 10/27/2023 Are You Deaf Or Do You Have Serious Difficulty Hearing? No Information not available 10/27/2023 What Type Of Diet Are You Following? CARBOHYDRATE Information not available 10/27/2023 Are There Any Guns Present In Your Home? No Information not available 08/20/2024 What Was The Date Of Your Most Recent Tobacco Screening? 08/20/2024 Information not available 08/20/2024 What Is Your Relationship Status? Information not available 10/27/2023 Do You Use Your Seat Belt Or Car Seat Routinely? Yes Information not available 10/27/2023 Do You Have Smoke And Carbon Monoxide Detectors In Your Home? Yes Information not available 10/27/2023 How Much Tobacco Do You Smoke? 1 PPD Information not available 10/27/2023 Do You Feel Stressed (tense, Restless, Nervous, Or Anxious, Or Unable To Sleep At Night)? [id number] Information not available 10/27/2023 Do You Use Any Illicit Or Recreational Drugs? No Information not available 10/27/2023 Do You Use Sunscreen Routinely? No Information not available 08/20/2024 Has Tobacco Cessation Counseling Been Provided? Yes Information not available 10/27/2023 On What Date Was Tobacco Cessation Counseling Provided? 08/20/2024 Information not available 08/20/2024 How Many Years Have You Smoked Tobacco? 40 Information not available 10/27/2023 Do You Or Have You Ever Used Any Other Forms Of Tobacco Or Nicotine? No Information not available 10/27/2023 Sex: Female Functional Status Question Answer Note LastModified by Organization D etails LastModified Time Are you able to care for yourself? Yes Information n ot available 10/27/2023 What is your exercise level? None Information not available 10/27/2023 Mental Status None recorded. Family History Nothing Reported. Medical History Condition Response Coronary Artery Disease N Other N High Blood Pressure Y Atrial Fibrillation N Kidney or Bladder Problems N Thyroid Problems N GI Problems N Depression N COPD N Blood Clots N Skin Problems N Anemia N Heart Attack ([place]) N Anxiety Disorder N Diabetes Y Muscle, Joint, or Bone Problems N Seizures/Epilepsy N Acid Reflux (GERD) Y Cancer N Stroke Y Asthma N Allergies Y High Cholesterol Y Hepatitis N Liver Disease N Headaches N Heart Failure N Osteoporosis N Gynecological HistoryNo gynecological history recorded. Obstetrics History GPAL:G 0 P 0 0 0 0 Immunizations Vaccine Type Date Status Note Provider Nam e and Address Organization Details Recorded Time Influenza, split virus, quadrivalent, preservative 6 completed Rossy Galvan R[place], [place] [facility] 01/02/2024 17:55:15 Influenza, split virus, quadrivalent, preservative 7 completed Rossy Galvan R[place] [facility] 01/02/2024 17:55:16 Influenza, split virus, quadrivalent, preservative 9 completed Rossy Galvan [place] [facility] 01/02/2024 17:55:16 Influenza, split virus, quadrivalent, preservative 8 completed Rossy Gal[place] [facility] 01/02/2024 17:55:16 COVID-19, mRNA, LNP-S, PF, 100 mcg/0.5mL dose or 50 mcg/0.25mL dose 1 completed Rossy Gal[place] [facility] 01/02/2024 17:55:16 COVID-19, mRNA, LNP-S, PF, 100 mcg/0.5mL dose or 50 mcg/0.25mL dose 1 completed Rossy Gal[place] [facility] 01/02/2024 17:55:16 COVID-19, mRNA, LNP-S, PF, 100 mcg/0.5mL dose or 50 mcg/0.25mL dose 1 completed Rossy Gal[place] [facility] 01/02/2024 17:55:16 Influenza, split virus, trivalent, preservative 3 completed Rossy Gal[place] [facility] 01/02/2024 17:55:16 Influenza, split virus, trivalent, preservative 4 completed Rossy Gal[place] [facility] 01/02/2024 17:55:16 Influenza, split virus, trivalent, PF 7 completed [place]y Gal[place] [facility] 01/02/2024 17:55:16 Influenza, high-dose, trivalent, PF 4 completed Michale Moore MD Attn: [address] [place], [address], [place] [facility] 04/27/2024 21:22:08 Pneumococcal conjugate PCV20, polysaccharide [id number] conjugate, adjuvant, PF 5 completed Michael Moore MD Attn: [address] [place], [address], [place] [facility] 08/25/2024 13:28:30 Past Encounters Encounter ID Performer Location Encounter Start Date Encounter Closed Date Diagnosis/Indication Diagnosis SNOMED-CT Code Diagnosis ICD10 Code Diagnosis Note [id number] Michael Moore MD [facility] (Adult Med) [address] [place] [phone] 10/27/2023 15:27:18 10/27/2023 17:35:47 Nicotine dependence 04722459 Z87.891 Type 2 estuardo betes mellitus 30086223 E11.9 Essential hypertension 97446448 I10 Hyperlipidemia 48514256 E78.5 Edema of l ower extremity 245091400 R60.0 Intracrani al meningioma 628653399 D32.0 Anxiety 60814058 F41.9 [id number] Michael Moore MD [facility] (Adult Med) [address] [place] [id number] 04/23/2024 15:07:30 04/23/2024 16:07:53 Essential hypertension 23048151 I10 Type 2 estuardo betes mellitus 48659209 E11.9 Hyperlipidemia 34911659 E78.5 Edema of l ower extremity 481942145 R60.0 Anxiety 74372325 F41.9 Administra tion of influenza vaccine 60886581 Z23 Intracrani al meningioma 323474176 D32.0 [id number] MD [facility] (Adult Med) [address] [place] [id number] 07/23/2024 12:20:45 07/23/2024 12:56:09 Smoker 79549050 F17.200 Cellulitis of lower leg 666943965 L03.119 Edema of l ower extremity 916237336 R60.0 [id number] MD [facility] (Adult Med) [address] [place] [id number] 08/20/2024 15:06:45 08/20/2024 16:10:54 Body mass index 30+ - obesity 943545498 Z68.39 Obesity 467838326 E66.9 Essential hypertension 82641016 I10 Type 2 estuardo betes mellitus 97125597 E11.9 Open wound of lower leg 659819533 S81.801A Screening mammography 24 051275 Z12.31 Administra tion of pneumococcal vaccine 65467998 Z23 Hyperlipidemia 06151809 E78.5 Nicotine dependence 5629 4008 Z87.891 Anxiety 32037513 F41.9 Edema of l ower extremity 735151573 R60.0 Obstructiv e sleep apnea syndrome 14051998 G47.33 Health Concerns Section Related Observation LastModified by Organization Detai ls LastModified Time None Recorded Concern Status LastModified by Organization Details LastModified Time None Recorded Advance Directives Directive Y: Payers Encounter Date Sequence Insurance Name Policy Number Policy Ralph Covered Member ID Ralph Member ID Guarantor Name 10/27/2023 1 [place] Mikik Dalton [id number] Mikki Dalton 10/27/2023 2 [employer] [place] (MEDICARE SUPPLEMENT) Mikki Dalton [id number] Mikki Dalton 04/23/2024 1 [place] Mikki Dalton [id number] Mikki Dalton 04/23/2024 2 [employer] [place] (MEDICARE SUPPLEMENT) Mikki Snell Sha [id number] Mikki Snell Sha 07/23/2024 1 [place] Mikki Snell Sha [id number] Mikki Snell Sha 07/23/2024 2 [employer] [place] (MEDICARE SUPPLEMENT) Mikki Snell Sha [id number] Mikki Snell Sha 08/20/2024 1 [place] Mikki Snell Sha [id number] Mikki Snell Sha 08/20/2024 2 [employer] [place] (MEDICARE SUPPLEMENT) Mikki Snell Sha [id number] Mikki Snell Sha Notes Date Note Type Note Provider Name and Address Organization Details Recorded Time 10/27/2023 text/html Follow-up medica l problems hypertension no headache or dizziness asthma stable diabetes tolerating her Ozempic no polyphagia polydipsia ongoing back problems and she sees Dr. Mercedes Saeed for that mammogram she says is a following up with foot and ankle physician for his infected toe little bit of edema continues to smoke pack-a-day smoker for 40 years Michael Moore MD Attn: Accounting, [address] [facility], [place], [address], [place] - [facility] 11/21/2023 21:35:42 04/23/2024 text/html hypertension no headache or dizziness COPD possible asthma overlap syndrome she is breathing a little bit better dyslipidemia tries to watch her diet edema of lower extremities about the same anxiety stable on current medical regimen her rhinitis has been doing okay she has been successful with some weight loss with the Ozempic Michael Moore MD Attn: Accounting, [address] [facility], [place], [address], [place] [facility] 04/27/2024 21:24:46 07/23/2024 text/html drainage right l eg no fever no chills no trauma Michael Moore MD Attn: Accounting, [address] [facility], [place], [address], [place] [facility] 07/27/2024 23:16:11 08/20/2024 text/html or wounds doing better with regards to drainage no fever no chills diabetes no polyphagia or polydipsia she needs a mammogram her blood pressure looks good still smoking dyslipidemia could do better on diet low vitamin-D level she could do better on calcium intake Michael Moore MD Attn: Accounting,[address] [facility], [place], [address], [facility] - [facility] 08/25/2024 13:32:42 OBGyn Episode No OBEpisode recorded.
--- OUTSIDE RECORDS SUMMARY | 2024-09-17 17:57 | XMS_ITS | Clinical Summary ---
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 Gender Identity Not on file Sexual Orientation Not on file Obstetrics History Last Filed Vital Signs Vital Sign Reading Time Taken Comments Blood Pressure 135/90 08/16/2018 10:43 AM INTELLECTUAL PROPERTY LEGAL ASSISTANT Pulse 78 08/16/2018 10:43 AM INTELLECTUAL PROPERTY LEGAL ASSISTANT Temperature - - Respiratory Rate - - Oxygen Saturation - - Inhaled Oxygen Concentration - - Weight 140.6 kg (310 lb) 08/16/2018 10:43 AM INTELLECTUAL PROPERTY LEGAL ASSISTANT Height 160 cm (5' 3 ) 08/16/2018 10:43 AM INTELLECTUAL PROPERTY LEGAL ASSISTANT Body Mass Index 54.91 08/16/2018 10:43 AM INTELLECTUAL PROPERTY LEGAL ASSISTANT Plan of Treatment Health Maintenance Due Date Last Done Comments Breast Cancer Screening-Mammogram 1955 Colon Cancer Screening-Colonoscopy 1955 Depression Screening 1956 Fall Risk Assessment 1955 Hepatitis C Screening 1956 DTaP/Tdap/Td Vaccine (1 - Tdap) 08/15/1967 Hepatitis B Screening 1974 Pneumococcal vaccine 65+ (1 of 2 - PCV) 08/15/1975 Zoster Vaccine (1 of 2) 2006 Well Visit 65+ 2021 Osteoporosis Screening-Bone Density Scan 10/19/2023 10/18/2021 Covid-19 Vaccine (2023-2 5 season) 2024 06/03/2021, 09/05/2020, 08/08/2020 Influenza Vaccine (#1) 2024 , 03/21/2018, 03/14/2017, Additional history exists Insurance MEDICARE [facility] Member Subscriber Plan / Payer (Ef fective 2018-Present) Name:Mikki Dalton Relation to Subscriber:Self Name:Mikki Dalton Payer ID:[id number] (NAIC) Type:[facility] Address: [phone] [employer] [place] MEDICARE [employer] [facility] Care Teams Form Grader Operator Relationship Specialty Start Date End Date Eugene Moore MD PCP - General 09/08/16
--- OUTSIDE RECORDS SUMMARY | 2024-09-17 17:57 | XMS_ITS | Data Portability ---
Author Organization [facility] [email or web address], Main Office Address [address] [place] [address] Assessment Encounter Date Assessment Date Assessment LastModified by Organization Details LastModified Time 01/16/2023 01/16/2023 Again told her to go as see the brain specialist as well so she can get her MRI and follow the meningioma. Otherwise blood work assessment plan and diagnosis assessment plan been discussed follow-up with me in 4 months continue current therapy [email or web address] Not available 01/17/2023 20:26:09 05/15/2023 05/15/2023 Will continue current therapy will follow-up in 4 months. Mammogram ordered Not available 05/15/2023 23:12:53 Plan of Treatment Reminders Order Date Submit Date Provider Last Modified By Organization Details Last Modified Time Details Appointments None recorded. Lab vitamin D, 25-hydrox y, total, serum 023 023 [email or web address] [facility] (Lab), [address] [place], [address], 4 11:01:55 HbA1c (hemoglob in A1c), blood 023 023 [email or web address] [facility] (Lab), [address] [place], [address], 4 11:01:55 CMP, serum or plasma 023 023 [email or web address] [facility] (Lab), [address] [place], [address], 3 18:15:52 CBC w/ auto diff 023 023 [email or web address] [facility] (Lab), [address] [place], [address], 3 18:02:51 lipid panel, serum 023 023 [email or web address] 25 [facility] (Lab), [address] [place], [address], 4 11:01:55 Referral None recorded. Procedures None [...] mmol/ L 137-14 5 low Not Available [facility] (Lab) [address] [place], [address], 09/23/2021 14:37:51 09/24/19 22 09/23/2021 COMPR EHENS CHRISTINA METAB OLIC PANEL potassium 4.5 mmol/ L 3.5-5. 1 Not Available [facility] (Lab) [address] [place], [address], 09/23/2021 14:37:51 09/24/19 22 09/23/2021 COMPR EHENS CHRISTINA METAB OLIC PANEL chloride 102 mmol/ L 98-107 Not Available [facility] (Lab) [address] [place], [address], 09/23/2021 14:37:51 09/24/19 22 09/23/2021 COMPR EHENS CHRISTINA METAB OLIC PANEL carbon dioxide 25 mmol/ L 22-30 Not Available [facility] (Lab) [address] [place], [address], 09/23/2021 14:37:51 09/24/19 22 09/23/2021 COMPR EHENS CHRISTINA METAB OLIC PANEL agap 13.5 mmol/ L 14-22 low Not Available [facility] (Lab) [address] [place], [address], 09/23/2021 14:37:51 09/24/19 22 09/23/2021 COMPR EHENS CHRISTINA METAB OLIC PANEL glucose 126 mg/dL 70-99 high Not Available [facility] (Lab) [address] [place], [address], 09/23/2021 14:37:51 09/24/19 22 09/23/2021 COMPR EHENS CHRISTINA METAB OLIC PANEL BUN 15 mg/dL 8-19 Not Available [facility] (Lab) [address] [place], [address], 09/23/2021 14:37:51 09/24/19 22 09/23/2021 COMPR EHENS CHRISTINA METAB OLIC PANEL creatinine 0.57 mg/dL 0.66-1 .25 low Not Available [facility] (Lab) [address] [place], [address], 09/23/2021 14:37:51 09/24/19 22 09/23/2021 COMPR EHENS CHRISTINA METAB OLIC PANEL GFR >60 Refer ence Range : Juliaetta ge GFR Healt hy Adult : >60 [...] calcu lator is avail able on the [facility] websi te: https :[email or web address] [email or web address] rg/pr ofess ional s/kdo qi/gf r_cal culat or Not Available [facility] (Lab) [address] [place], [address], 09/23/2021 14:37:51 09/24/19 22 09/23/2021 COMPR EHENS CHRISTINA METAB OLIC PANEL alkaline phosphatase 86 U/L 38-126 Not Available [facility] (Lab) [address] [place], [address], 09/23/2021 14:37:51 09/24/19 22 09/23/2021 COMPR EHENS CHRISTINA METAB OLIC PANEL alanine aminotransfe rase 14 U/L 0-35 Not Available [facility] (Lab) [address] [place], [address], 09/23/2021 14:37:51 09/24/19 22 09/23/2021 COMPR EHENS CHRISTINA METAB OLIC PANEL aspartate aminotransfe rase 18 U/L 15-37 Not Available [facility] (Lab) [address] [place], [address], 09/23/2021 14:37:51 09/24/19 22 09/23/2021 COMPR EHENS CHRISTINA METAB OLIC PANEL bilirubin, total 0.50 mg/dL 0.20-1 .30 Not Available [facility] (Lab) [address] [place], [address], 09/23/2021 14:37:51 09/24/19 22 09/23/2021 COMPR EHENS CHRISTINA METAB OLIC PANEL calcium 10.0 mg/dL 8.4-10 .2 Not Available [facility] (Lab) [address] [place], [address], 09/23/2021 14:37:51 09/24/19 22 09/23/2021 COMPR EHENS CHRISTINA METAB OLIC PANEL total protein 7.8 g/dL 6.3-8. 2 Not Available [facility] (Lab) [address] [place], [address], 09/23/2021 14:37:51 09/24/19 22 09/23/2021 COMPR EHENS CHRISTINA METAB OLIC PANEL albumin 4.4 g/dL 3.0-4. 4 Not Available [facility] (Lab) [address] [place], [address], 09/23/2021 14:37:51 09/24/19 22 09/23/2021 COMPR EHENS CHRISTINA METAB OLIC PANEL globulin 3.4 g/dL 2.6-4. 2 Not Available [facility] (Lab) [address] [place], [address], 09/23/2021 14:37:51 09/24/19 22 09/23/2021 COMPR EHENS CHRISTINA METAB OLIC PANEL A/G ratio 1.3 ratio 1.0-2. 0 Not Available [facility] (Lab) [address] [place], [address], 09/23/2021 14:37:51 09/24/19 22 09/23/2021 LIPID PANEL cholesterol 184 mg/dL 140-19 9 NIH CELESTINA NSUS RECOM MENDA TION FOR MAGO STERO L: ADULT CHILD LOW RISK: <200 <170 BORDE RLINE : <200- 239 ----- HIGH RISK: >240 >200 Not Available [facility] (Lab) [address] [place], [address], 09/23/2021 14:37:44 09/24/19 22 09/23/2021 LIPID PANEL triglyceride s 148 mg/dL 0-150 NIH CELESTINA NSUS REPOR T RECOM MENDA TION FOR TRIGL YCERI JOSE: ADULT CHILD LOW RISK: <150 ----- BODER LINE: 150-1 99 ----- HIGH RISK: >200 ----- Not Available [facility] (Lab) [address] [place], [address], 09/23/2021 14:37:44 09/24/19 22 09/23/2021 LIPID PANEL HDL cholesterol 63 mg/dL 40- Not Available [facility] (Lab) [address] [place], [address], 09/23/2021 14:37:44 09/24/19 22 09/23/2021 LIPID PANEL [...] WILL NOT BE REPOR ADEN. Not Available [facility] (Lab) [address] [place], [address], 09/23/2021 14:37:44 09/24/19 22 09/23/2021 HEMOG LOBIN A1C HA1C 7.8 % 4.0-6. 0 high Diabe kecia Scree elli Crite bonnie: <5.7% Consi stent with absen ce of diabe kecia 5.7-6 .4% Consi stent with incre ased risk for diabe kecia (pred iabet es) >OR=6 .5% Consi stent with diabe kecia REFER ENCE: Diabe kecia Care 2016, 39(Raya ppl.1 ):s13 -s22 Not Available [facility] (Lab) [address] [place], [address], 09/23/2021 14:36:33 01/17/2001/16/2023 CBC/C OMPLE TE BLD COUNT W/DIF F white blood cells 5.2 x10'3 /uL 4.2-10 .8 Not Available [facility] (Lab) [address] [place], [address], 01/16/2023 18:01:15 01/17/20 23 01/16/2023 CBC/C OMPLE TE BLD COUNT W/DIF F red blood cells 4.43 x10'6 /uL 3.80-5 .20 Not Available [facility] (Lab) [address] [place], [address], 01/16/2023 18:01:15 01/17/20 23 01/16/2023 CBC/C OMPLE TE BLD COUNT W/DIF F hemoglobin 14.2 g/dL 12.0-1 5.6 Not Available [facility] (Lab) [address] [place], [address], 01/16/2023 18:01:15 01/17/2001/16/2023 CBC/C OMPLE TE BLD COUNT W/DIF F hematocrit 43.2 % 35.7-4 5.7 Not Available [facility] (Lab) [address] [place], [address], 01/16/2023 18:01:15 01/17/2001/16/2023 CBC/C OMPLE TE BLD COUNT W/DIF F mean red cell volume 97.5 fL 82.0-9 9.0 Not Available [facility] (Lab) [address] [place], [address], 01/16/2023 18:01:15 01/17/20 23 01/16/2023 CBC/C OMPLE TE BLD COUNT W/DIF F mean red cell hemoglobin 32.1 pg 27.0-3 3.0 Not Available [facility] (Lab) [address] [place], [address], 01/16/2023 18:01:15 01/17/20 23 01/16/2023 CBC/C OMPLE TE BLD COUNT W/DIF F mean RBC HGB concentratio n 32.9 g/dL 31.0-3 6.0 Not Available [facility] (Lab) [address] [place], [address], 01/16/2023 18:01:15 01/17/20 23 01/16/2023 CBC/C OMPLE TE BLD COUNT W/DIF F red cell distribution width 13.4 % 11.8-1 5.5 Not Available [facility] (Lab) [address] [facility] [place], [address], 01/16/2023 18:01:15 01/17/20 23 01/16/2023 CBC/C OMPLE TE BLD COUNT W/DIF F platelets 297 x10'3 /uL 150-40 0 Not Available [facility] (Lab) [address] [place], [address], 01/16/2023 18:01:15 01/17/20 23 01/16/2023 CBC/C OMPLE TE BLD COUNT W/DIF F mean platelet volume 10.5 fL 9.0-12 .4 Not Available [facility] (Lab) [address] [place], [address], 01/16/2023 18:01:15 01/17/20 23 01/16/2023 CBC/C OMPLE TE BLD COUNT W/DIF F neutrophils 56.0 % 39.0-7 2.0 Not Available [facility] (Lab) [address] [place], [address], 01/16/2023 18:01:15 01/17/20 23 01/16/2023 CBC/C OMPLE TE BLD COUNT W/DIF F lymphocytes 31.9 % 16.0-4 7.0 Not Available [facility] (Lab) [address] [place], [address], 01/16/2023 18:01:15 01/17/20 23 01/16/2023 CBC/C OMPLE TE BLD COUNT W/DIF F monocytes 7.3 % 5.0-12 .0 Not Available [facility] (Lab) [address] [place], [address], 01/16/2023 18:01:15 01/17/20 23 01/16/2023 CBC/C OMPLE TE BLD COUNT W/DIF F eosinophils 3.3 % 1.0-7. 0 Not Available [facility] (Lab) [address] [place], [address], 01/16/2023 18:01:15 01/17/2001/16/2023 CBC/C OMPLE TE BLD COUNT W/DIF F basophils 1.3 % 0.0-2. 0 Not Available [facility] (Lab) [address] [place], [address], 01/16/2023 18:01:15 01/17/20 23 01/16/2023 CBC/C OMPLE TE BLD COUNT W/DIF F immature granulocytes 0.2 % 0.00-0 .50 Not Available [facility] (Lab) [address] [place], [address], 01/16/2023 18:01:15 01/17/20 23 01/16/2023 CBC/C OMPLE TE BLD COUNT W/DIF F neutrophils, absolute count 2.93 x10'3 /uL 1.5-8. 0 Not Available [facility] (Lab) [address] [place], [address], 01/16/2023 18:01:15 01/17/20 23 01/16/2023 CBC/C OMPLE TE BLD COUNT W/DIF F lymphocytes, absolute count 1.67 x10'3 /uL 1.07-3 .43 Not Available [facility] (Lab) [address] [place], [address], 01/16/2023 18:01:15 01/17/20 23 01/16/2023 CBC/C OMPLE TE BLD COUNT W/DIF F monocytes, absolute count 0.38 x10'3 /uL 0.29-0 .99 Not Available [facility] (Lab) [address] [facility] [place], [address], 01/16/2023 18:01:15 01/17/2001/16/2023 CBC/C OMPLE TE BLD COUNT W/DIF F eosinophils, absolute count 0.17 x10'3 /uL 0.02-0 .53 Not Available [facility] (Lab) [address] [place], [address], 01/16/2023 18:01:15 01/17/20 23 01/16/2023 CBC/C OMPLE TE BLD COUNT W/DIF F basophils, absolute count 0.07 x10'3 /uL 0.01-0 .08 Not Available [facility] (Lab) [address] [place], [address], 01/16/2023 18:01:15 01/17/2001/16/2023 CBC/C OMPLE TE BLD COUNT W/DIF F immature granulocytes ,absolute 0.01 x10'3 /uL 0.00-0 .05 Not Available [facility] (Lab) [address] [place], [address], 01/16/2023 18:01:15 01/17/2001/16/2023 CBC/C OMPLE TE BLD COUNT W/DIF F nucleated red blood cells 0.0 % -0 Not Available [facility] (Lab) [address] [place], [address], 01/16/2023 18:01:15 01/17/20 23 01/16/2023 CBC/C OMPLE TE BLD COUNT W/DIF F NRBC# 0.00 x10'3 /uL Not Available [facility] (Lab) [address] [place], [address], 01/16/2023 18:01:15 01/17/20 23 01/16/2023 COMPR EHENS CHRISTINA METAB OLIC PANEL sodium 138 mmol/ L 137-14 5 Not Available [facility] (Lab) [address] [place], [address], 01/16/2023 18:15:52 01/17/20 23 01/16/2023 COMPR EHENS CHRISTINA METAB OLIC PANEL potassium 4.2 mmol/ L 3.5-5. 1 Not Available [facility] (Lab) [address] [place], [address], 01/16/2023 18:15:52 01/17/20 23 01/16/2023 COMPR EHENS CHRISTINA METAB OLIC PANEL chloride 101 mmol/ L 98-107 Not Available [facility] (Lab) [address] [place], [address], 01/16/2023 18:15:52 01/17/20 23 01/16/2023 COMPR EHENS CHRISTINA METAB OLIC PANEL carbon dioxide 27 mmol/ L 22-30 Not Available [facility] (Lab) [address] [place], [address], 01/16/2023 18:15:52 01/17/20 23 01/16/2023 COMPR EHENS CHRISTINA METAB OLIC PANEL anion gap 14.2 mmol/ L 14-22 Not Available [facility] (Lab) [address] [place], [address], 01/16/2023 18:15:52 01/17/20 23 01/16/2023 COMPR EHENS CHRISTINA METAB OLIC PANEL glucose 109 mg/dL 70-99 high Not Available [facility] (Lab) [address] [place], [address], 01/16/2023 18:15:52 01/17/20 23 01/16/2023 COMPR EHENS CHRISTINA METAB OLIC PANEL BUN 15 mg/dL 8-19 Not Available [facility] (Lab) [address] [place], [address], 01/16/2023 18:15:52 01/17/2001/16/2023 COMPR EHENS CHRISTINA METAB OLIC PANEL creatinine 0.57 mg/dL 0.66-1 .25 low Not Available [facility] (Lab) [address] [place], [address], 01/16/2023 18:15:52 01/17/20 23 01/16/2023 COMPR EHENS CHRISTINA METAB OLIC PANEL GFR >60 Refer ence Range : Juliaetta ge GFR Healt hy Adult : >60 [...] or ethni c subgr oups, such as [facility] nics. Outsi de the valid ated [...] calcu lator is avail able on the [facility] websi te: https :[email or web address] wsheila [email or web address] rg/pr ofess ional s/kdo qi/gf r_cal culat or Not Available [facility] (Lab) [address] [place], [address], 01/16/2023 18:15:52 01/17/20 23 01/16/2023 COMPR EHENS CHRISTINA METAB OLIC PANEL alkaline phosphatase 101 U/L 38-126 Not Available [facility] (Lab) [address] [place], [address], 01/16/2023 18:15:52 01/17/20 23 01/16/2023 COMPR EHENS CHRISTINA METAB OLIC PANEL alanine aminotransfe rase 23 U/L 0-35 Not Available [facility] (Lab) [address] [place], [address], 01/16/2023 18:15:52 01/17/20 23 01/16/2023 COMPR EHENS CHRISTINA METAB OLIC PANEL aspartate aminotransfe rase 24 U/L 15-37 Not Available [facility] (Lab) [address] [place], [address], 01/16/2023 18:15:52 01/17/20 23 01/16/2023 COMPR EHENS CHRISTINA METAB OLIC PANEL bilirubin, total 0.50 mg/dL 0.20-1 .30 Not Available [facility] (Lab) [address] [place], [address], 01/16/2023 18:15:52 01/17/20 23 01/16/2023 COMPR EHENS CHRISTINA METAB OLIC PANEL calcium 9.8 mg/dL 8.4-10 .2 Not Available [facility] (Lab) [address] [place], [address], 01/16/2023 18:15:52 01/17/20 23 01/16/2023 COMPR EHENS CHRISTINA METAB OLIC PANEL total protein 8.5 g/dL 6.3-8. 2 high Not Available [facility] (Lab) [address] [place], [address], 01/16/2023 18:15:52 01/17/20 23 01/16/2023 COMPR EHENS CHRISTINA METAB OLIC PANEL albumin 4.9 g/dL 3.0-4. 4 high Not Available [facility] (Lab) [address] [place], [address], 01/16/2023 18:15:52 01/17/20 23 01/16/2023 COMPR EHENS CHRISTINA METAB OLIC PANEL globulin 3.6 g/dL 2.6-4. 2 Not Available [facility] (Lab) [address] [place], [address], 01/16/2023 18:15:52 01/17/20 23 01/16/2023 COMPR EHENS CHRISTINA METAB OLIC PANEL A/G ratio 1.4 ratio 1.0-2. 0 Not Available [facility] (Lab) [address] [place], [address], 01/16/2023 18:15:52 01/17/2001/16/2023 VITAM IN D 25-HY DROXY [id number] 39.1 NG/mL 30-100 Vitam in D Statu s: Defic ient: <20 ng/mL Insuf ficie nt: 20-29 ng/mL Suffi cient : 30-10 0 ng/mL Not Available [facility] (Lab) [address] [place], [address], 01/16/2023 18:59:24 01/17/2001/16/2023 HEMOG LOBIN A1C HA1C 6.9 % 4.0-6. 0 high Diabe kecia Scree elli Crite bonnei: <5.7% Consi stent with absen ce of diabe kecia 5.7-6 .4% Consi stent with incre ased risk for diabe kecia (pred iabet es) >OR=6 .5% Consi stent with diabe kecia REFER ENCE: Diabe kecia Care 2016, 39(Raya ppl.1 ):s13 -s22 Not Available [facility] ([facility]) [address] [place], [address], 01/16/2023 20:04:48 10/19/19 22 10/18/2021 DEXA, axial skele ton [facility] [address] [place] [address] Patien t Name: MELODIE DALTON Access ion #: [id number] Sex: F : 1955 7 Locati [...] g/cm2 calciu m Page 1 [facility] 2 [facility] Name: MELODIE DALTON Access ion #: [id number] Sex: F : 1955 7 Exam [...] MD (CT) (CT) Page 2 of 2 [id number] [facility] (Imaging) [address] [place], [address], 08/10/2022 05:05:08 10/19/19 22 10/18/2021 scree elli breas t irina, bilat [facility] [address] [place] [address] [phone] Patining t Name: MELODIE DALTON Access ion #: [id number] Sex: F : 1955 7 Locati [...] 2 [facility] [place] Jacqui gómez Name: MELODIE DALTON Access ion #: [id number] Sex: F : 1955 7 Exam Date: 10/19/19 10:32 AM Exam Name: MG GENTILE BREAST RIINA BILAT Admitt ing Diagno sis(es ): No [...] ly to the [facility] er. A negati ve mammog chuck report [...] and electr onical ly signed by: Devin beonit MD Signed Date: 10/19/19 11:33 AM (CT) Dictat ed by: Devin benoit MD (CT) (CT) Page 2 of 2 [id number] [facility] (Imaging) [address] [place], [address], 08/10/2022 05:05:08 06/09/20 23 06/09/2023 chad mendez t irina, bilat [facility] [address] [place] [address] Jacqui gómez Name: MELODIE DALTON Access ion #: [id number] Sex: F : 1955 6 Dictat [...] at 2022 15:12: 39 PM Page 1 [email or web address] [facility] (Imaging) [address] [facility], [place], [address], 06/16/2023 14:53:31 01/18/20 24 01/17/2024 LDCT, chest , for lung cance r chad calloway No observ ation record ed. [email or web address] [facility] [address] [address], [place], [address], 02/22/2024 15:47:30 Result Notes None recorded. Problems Name Problem SNOMED Code Status Onset Date Resolution Date Notes Provider Name and Address Organization Details Recorded Time Mammograp hy abnormal 363778815 Completed Not Available [facility] 3 04:54:02 Asthma 905340131 Active Not Available [facility] 4 05:46:31 Sciatica 76816896 Completed Not Available [facility] 3 04:54:02 Morbid obesity 858396186 Active 2021 Not Available [facility] 4 05:46:31 Pure hyperchol esterolem ia 767600621 Active Not Available [facility] 4 05:46:31 Low back pain 711566806 Active Not Available [facility] 4 05:46:31 Intracran ial meningiom a 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 Active Not Available [facility] 4 05:46:31 Type 2 diabetes mellitus without complicat ion 902928623 Active Not Available [facility] 4 05:46:31 Vitamin D deficienc y 57106945 Active Not Available [facility] 4 05:46:31 Diverticu lar disease of colon 657582879 Active Not Available [facility] 4 05:46:31 Dizziness 001758382 Completed Not Available [facility] 3 04:54:03 Magnetic resonance imaging of brain abnormal 329758471 Active Not Available [facility] 4 05:46:31 Pain of right knee joint 10261173400 4100 Active 2021 Not Available [facility] 4 05:46:31 Anxiety 64676572 Active 2018 Not Available [facility] 4 05:46:31 Upper respirato ry infection 53887838 Completed Not Available [facility] 3 04:54:03 Essential hypertens ion 70114788 Active 2018 Not Available [facility] 4 05:46:31 Rhinitis 41485626 Completed Not Available [facility] 3 04:54:03 COVID-19 486010896 Active 2021 Not Available [facility] 4 05:46:31 Problem Notes None recorded. Procedures Surgical History Date Name Laterality Status Provider Name and Address Organization Details Recorded Time 08/26/19 15 Most Recent Bone Density completed Not Available [facility] 08/10/2022 04:45:07 11/15/19 08 Date of Last Colonoscopy completed Not Available [facility] 08/10/2022 04:45:07 Jaw arthroscopy/kirstin josemanuel completed Not Available [facility] 08/10/2022 04:45:13 removal of sebaceous cyst completed Not Available [facility] 08/10/2022 04:45:13 Imaging Results Imaging Date Name Status LastModified by Organiz ation Details LastModified Time 10/18/2021 DEXA, axial skeleton completed [id number] [facility] (Imaging) [address] [place], [address], 08/10/2022 05:05:08 10/18/2021 screening breast irina, bilat completed [id number] [facility] (Imaging) [address] [place], [address], 08/10/2022 05:05:08 06/09/2023 screening breast irina, bilat completed [email or web address] [facility] (Imaging) [address] [place], [address], 06/16/2023 14:53:31 01/17/2024 LDCT, chest, for lung cancer screening completed [email or web address] [facility] [address], [place], [address], 02/22/2024 15:47:30 Procedure Notes None recorded. Medical [...] Available Not Available No t Available Fluvirin [id number](P F) 45 mcg (15 mcg x3)/0.5 mL [...] kg/m2 157.48 cm 78 /min 97.6 [degF] 836571. 31 g 128 mm[Hg] 72 mm[Hg] Not Available [facility] 3 04:47:18 Date Recorded Body mass index (BMI) Body height Heart rate Body temperature Body weight Systolic blood pressure Diastolic blood pressure Provider Name and Address Organization Details Last Updated DateTime 2 49.9 kg/m2 157.48 cm 75 /min 97.2 [degF] 159786. 72 g 104 mm[Hg] 78 mm[Hg] Not Available [facility] 3 04:47:18 Date Recorded Body mass index (BMI) Body height Heart rate Body temperature Body weight Systolic blood pressure Diastolic blood pressure Provider Name and Address Organization Details Last Updated DateTime 3 50.5 kg/m2 157.48 cm 78 /min 98.2 [degF] 135443. 49 g 118 mm[Hg] 78 mm[Hg] Not Available [facility] 3 04:47:18 Date Recorded Body height Body mass index (BMI) Body weight Body temperature Heart rate Oxygen saturation Oxygen saturation in Arterial blood by Pulse oximetry Systolic blood pressure Diastolic blood pressure Provider Name and Address Organization Details Last Updated DateTime 3 157.48 cm 49.7 kg/m2 773246. 12 g 98.5 [degF] 68 /min 96 % 96 % 122 mm[Hg] 70 mm[Hg] Tg Silva MA [employer] 3 14:19:21 Date Recorded Body height Body mass index (BMI) Body weight Body temperature Heart rate Systolic blood pressure Diastolic blood pressure Provider Name and Address Organization Details Last Updated DateTime 3 157.48 cm 51 kg/m2 387633. 27 g 97.9 [degF] 89 /min 126 mm[Hg] 74 mm[Hg] ANNA Alvarez [email or web address] 3 13:59:40 Social History Question Answer Notes LastModified by Organization Details LastModified Time Tobacco Smoking Status Current Every Day Smoker Not Available [facility] 08/10/2022 04:21:10 Do You Have An Advance Directive? Yes [id number] Information not available 08/10/2022 What Is Your Level Of Alcohol Consumption? Occasional [id number] Information not available 08/10/2022 Are You Blind Or Do You Have Difficulty Seeing? No [id number] [id number] Information not available 08/10/2022 What Is Your Level Of Caffeine Consumption? Moderate [id number] Information not available 08/10/2022 How Much Tobacco Do You Chew? None [id number] [id number] Information not available 08/10/2022 In The 14 Days Before Symptom Onset, Have You Had Close Contact With A Laboratory-conf rich COVID-19 While That Case Was Ill? No MIGRATION.[id number] [id number] Information not available 08/10/2022 In The 14 Days Before Symptom Onset, Have You Had Close Contact With A Person Who Is Under Investigation For COVID-19 While That Person Was Ill? No MIGRATION.[id number] [id number] Information not available 08/10/2022 Are You Deaf Or Do You Have Serious Difficulty Hearing? No MIGRATION.[id number] [id number] Information not available 08/10/2022 What Type Of Diet Are You Following? SPECIFIC [employer] MIGRATION.0301 [id number] Information not available 08/10/2022 Which Illicit Or Recreational Drugs Have You Used? None MIGRATION.0301 [id number] Information not available 08/10/2022 Do You Or Have You Ever Used E-cigarettes Or Vape? Never Used Electronic Cigarettes MIGRATION.0301 [id number] Information not available 08/10/2022 What Is The Highest Grade Or Level Of School You Have Completed Or The Highest Degree You Have Received? 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 No MIGRATION.0301 499474 Information not available 08/10/2022 What Is The Fluoride Status Of Your Home? Unknown MIGRATION.0301 500572 Information not available 08/10/2022 Are There Any Guns Present In Your Home? Yes MIGRATION.0301 232495 Information not available 08/10/2022 Do You Use Insect Repellent Routinely? No MIGRATION.0301 290726 Information not available 08/10/2022 Where Do You Live? [place]House MIGRATION.0301 725374 Information not available 08/10/2022 Do You Have A Medical Power Of Shell Worker? Yes MIGRATION.0301 451356 Information not available 08/10/2022 What Was The Date Of Your Most Recent Tobacco Screening? 05/15/2023 [email or web address] Information not available 05/15/2023 Have You Ever Been Counseled For Unhealthy Alcohol Use? No MIGRATION.0301 153934 Information not available 08/10/2022 Do You Have Any Pets? No MIGRATION.0301 812532 Information not available 08/10/2022 What Is Your Relationship Status? MIGRATION.0301 177497 Information not available 08/10/2022 Do You Use Your Seat Belt Or Car Seat Routinely? Yes MIGRATION.0301 896985 Information not available 08/10/2022 Do You Have Smoke And Carbon Monoxide Detectors In Your Home? Yes MIGRATION.0301 883765 Information not available 08/10/2022 At What Age Did You Start Smoking Tobacco? 24 MIGRATION.0301 218907 Information not available 08/10/2022 Are You Passively Exposed To Smoke? Yes MIGRATION.0301 158153 Information not available 08/10/2022 Do You Or Have You Ever Used Smokeless Tobacco? Never Used Smokeless Tobacco MIGRATION.0301 270914 Information not available 08/10/2022 Are There Any Smokers In Your House? Yes MIGRATION.0301 203094 Information not available 08/10/2022 How Much Tobacco Do You Smoke? 0.5 PPD MIGRATION.0301 909293 Information not available 08/10/2022 What Types Of Sporting Activities Do You Participate In? None MIGRATION.0301 987206 Information not available 08/10/2022 Do You Feel Stressed (tense, Restless, Nervous, Or Anxious, Or Unable To Sleep At Night)? [id number] MIGRATION.0301 889712 Information not available 08/10/2022 Do You Use Any Illicit Or Recreational Drugs? No MIGRATION.0301 339429 Information not available 08/10/2022 Do You Use Sunscreen Routinely? Yes MIGRATION.0301 195016 Information not available 08/10/2022 Have You Recently Traveled Abroad? No MIGRATION.0301 777782 Information not available 08/10/2022 Do You Have Any Dietary Restrictions? No MIGRATION.0301 374537 Information not available 08/10/2022 Do You Or Have You Ever Used Any Other Forms Of Tobacco Or Nicotine? No MIGRATION.0301 560070 Information not available 08/10/2022 Sex: Female Functional Status Question Answer Note LastModified by Organizat ion Details LastModified Time Do you have difficulty walking or climbing stairs? Yes MIGRATION.8671649 026 Information not available 08/10/2022 Do you have transportation difficulties? No MIGRATION.3077458 026 Information not available 08/10/2022 Are you able to walk? YESASSIST MIGRATION.4158428 026 Information not available 08/10/2022 Do you have difficulty doing errands alone? No MIGRATION.0320163 026 Information not available 08/10/2022 Are you able to care for yourself? Yes MIGRATION.4190322 026 Information not available 08/10/2022 Do you have difficulty dressing or bathing? No MIGRATION.5777995 026 Information not available 08/10/2022 What is your exercise level? Moderate MIGRATION.8113680 026 Information not available 08/10/2022 Mental Status Question Answer Note LastModified by Organizat ion Details LastModified Time Do you have difficulty concentrating, remembering or making decisions? No MIGRATION.489517455 6 Information not available 08/10/2022 Family History Relationship Description Onset Age of this Age Resolved Age Notes LastModified by Organization Details LastModified Time Mother Malignant tumor of breast MIGRATION.377 [id number] Not available 08/10/2022 04:45:16 Father Malignant tumor of lung MIGRATION.225 7170309 Not available 08/10/2022 04:45:16 Brother Heart disease MIGRATION.912 4233166 Not available 08/10/2022 04:45:16 Medical History Condition Response NERVE DISEASE N BLINDNESS N RHEUMATIC FEVER N KIDNEY STONES N BLADDER PROBLEMS N MRSA N OTHER # 1 N POLIO N LUNG DISEASE/DISORDER N COPD N RADIATION / CHEMOTHERAPY N Other # 2 N BLOOD DISEASES [...] 50 mcg/0.25mL dose 1 completed Not Available [facility] 06/29/2023 05:46:32 COVID-19, mRNA, LNP-S, PF, 100 mcg/0.5mL dose or 50 mcg/0.25mL dose 1 completed Not Available [facility] 06/29/2023 05:46:32 Influenza, split virus, quadrivalent, preservative 9 completed Not Available [facility] 06/29/2023 05:46:32 Influenza, split virus, quadrivalent, preservative 8 completed Not Available [facility] 06/29/2023 05:46:32 Influenza, split virus, quadrivalent, preservative 6 completed Not Available [facility] 06/29/2023 05:46:31 Influenza, split virus, quadrivalent, preservative 7 completed Not Available [facility] 06/29/2023 05:46:32 Influenza, split virus, trivalent, preservative 4 completed Not Available [facility] 06/29/2023 05:46:32 Past Encounters Encounter ID Performer Location Encounter Start Date Encounter Closed Date Diagnosis/Indication Diagnosis SNOMED-CT Code Diagnosis ICD10 Code Diagnosis Note [id number] [facility] Internal Med [address] Mariola Faria, [address] [address] 12/16/2020 00:00:00 12/16/2020 21:22:22 [id number] [facility] [address] [place], [place] [address]., [address] [address] 05/21/2021 00:00:00 06/13/2021 22:42:40 [id number] [facility] [address] [place], [place] [address]., [address] [address] 07/09/2021 00:00:00 07/09/2021 20:40:37 [id number] [facility] [address] [place], [place] [address]., [address] [address] 08/10/2021 00:00:00 08/28/2021 22:02:28 [id number] [facility] [address] [place] [address]., [address] [address] 10/06/2021 00:00:00 10/09/2021 20:05:31 [id number] [facility] [address] [address] 02/23/2022 00:00:00 02/23/2022 23:00:04 [id number] [facility] [address] [address] 07/18/2022 00:00:00 07/18/2022 11:20:42 [id number] Eugene Moore MD [facility] [address] [address] 01/16/2023 14:12:02 01/16/2023 15:46:06 Essential hypertension 64159366 I10 Type 2 estuardo betes mellitus without complication 131228667 E11.9 Vitamin D deficiency 347 19803 E55.9 Morbid obesity 900947111 E66.01 Anxiety 53213177 F41.9 Asthma 690737865 J45.90 9 Intracrani al meningioma 888278798 D32.0 [id number] Eugene Moore MD [facility] [address] [facility] [address] [place] [address] 05/15/2023 13:50:21 05/15/2023 14:44:42 Essential hypertension 82685953 I10 Anxiety 13186561 F41.9 Morbid obesity 686178398 E66.01 Asthma 603136976 J45.90 9 Intracrani al meningioma 914652779 D32.0 Health Concerns Section Related Observation LastModified by Organization Detai ls LastModified Time None Recorded Concern Status LastModified by Organization Details LastModified Time None Recorded Advance Directives Directive Y: Payers Encounter Date Sequence Insurance Name Policy Number Policy Ralph Covered Member ID Ralph Member ID Guarantor Name 01/16/2023 1 [place] [id number] Mikki Dalton [id number] Mikki Dalton 05/15/2023 1 [place] [id number] Mikki Dalton [id number] Mikki Dalton Notes Date Note Type [...] stable on inhalers. Eugene Moore MD [address] [facility], [address], [place], [address], [employer] 01/17/2023 20:26:28 05/15/2023 text/html Diabetes no polyphagia [...] changes in meningioma Eugene Moore MD [address] [facility], [address], [place], [address], [facility] [employer] 05/15/2023 23:13:11 OBGyn Episode No OBEpisode recorded.
--- OUTSIDE RECORDS SUMMARY | 2024-09-17 17:57 | XMS_ITS | Continuity of Care Document ---
Author Organization [facility] Address [address] [place] [address] Phone Care Team Providers Care Office 365 Consultant Name Role Phone Hilario Shook MD Unavailable Unavailable Advance Directives Directive Yes / No Effective Date File Name No Information Encounters Encounter Description Practice Location Reason(s) For Visit Diagnoses Date Provider Providers Copied on Encounter [employer], [address], [place], [place], [id number], tel:[phone] [facility] No Information Boone Rich. [address], [place], [place], [address], [place]. tel:[phone] Referring Provider: [address], [place], [address]. tel:[phone] Family History Family Member Type Diagnosis Age At Onset No Information Payers Payer name Insurance type Covered republican ID Authoriza tion(s) [employer] INACTIVE OUT OF STATE [id number] Social History Type Description Quantity Date Captured [...]
--- NOTE | 2024-09-17 18:34 | ED_ITS ---
HPI - General Adult General Chief complaint: Unspecified <Gay Chambers PA-C - Last Filed: 09/20/24 18:13> Stated complaint: bowel incontinence since this morning <Gay Chambers PA-C - Last Filed: 09/20/24 18:13> Time Seen by Provider: 09/17/24 18:34 <Gay Chambers PA-C - Last Filed: 09/20/24 18:13> Focused HPI: This is a 69 year old female that presents to the ER for bowel incontinence. Reports last night she was not able to urinate. This morning when she got up she felt like she needed to have a BM and urinate. Reports she felt very constipated and was unable to have a BM or urinate. Reports she sat on the toilet all morning and never went. Reports every time she stood up she was leaking stool from her rectum. Reports some abdominal discomfort. Reports known history of hemorrhoids. Denies fever, back pain, hematuria, hematochezia. Also reports she is currently seeing wound care for a wound on her right leg. GENERAL: Chronically ill-appearing, well-nourished, and in no acute distress. HEAD: Normocephalic, atraumatic. CHEST: Clear to auscultation. ?No respiratory distress. HEART: Regular rate and rhythm.? NEURO: ?Alert and oriented x3. Patient screened in triage and initial orders placed.? ?Additional care and disposition to be based upon?diagnostic testing and treatment. <Gay Chambers PA-C - Last Filed: 09/20/24 18:13> History of Present Illness HPI narrative: HPI as above in the medical screening exam with following additions. The patient states she has noticed groin numbness over the past 2-3 months. She states she feels she cannot hold her bowels. She states she has history of lumbar stenosis with chronic right leg weakness but had not previously had groin numbness. She denies fevers, chills or any known trauma. She has no other complaints at this time. <Gregorio Long MD - Last Filed: 09/18/24 01:37> Related Data Home medications: Home Medications ?Medication ?Instructions ?Recorded ?Confirmed ?Last Taken ?Type albuterol sulfate 90 mcg/actuation 1 puff inhalation Q4H PRN 02/28/24 08/27/24 Unknown History aerosol inhaler shortness of breath or wheezing amlodipine 10 mg tablet 10 mg PO DAILY 02/28/24 08/27/24 08/27/24 History atorvastatin 20 mg tablet 20 mg PO DAILY 02/28/24 08/27/24 08/27/24 History baclofen 10 mg tablet 10 mg PO DAILY 02/28/24 09/18/24 09/17/24 History citalopram 10 mg tablet 10 mg PO DAILY 02/28/24 08/27/24 08/27/24 History fluticasone furoate 100 1 inh inhalation DAILY 02/28/24 08/27/24 08/27/24 History mcg-vilanterol 25 mcg/dose inhalation powder (Breo Ellipta) fluticasone propionate 50 2 spray intranasal DAILY 02/28/24 08/27/24 08/27/24 History mcg/actuation nasal spray,suspension furosemide 20 mg tablet 20 mg PO QAM 02/28/24 08/27/24 08/27/24 History gabapentin 300 mg capsule 300 mg PO DAILY 02/28/24 09/18/24 09/17/24 History metformin 500 mg tablet 500 mg PO BID 02/28/24 08/27/24 08/27/24 History montelukast 10 mg tablet 10 mg PO DAILY 02/28/24 08/27/24 08/27/24 History nabumetone 750 mg tablet 750 mg PO BID 02/28/24 09/18/24 09/17/24 History semaglutide 1 mg/dose (4 mg/3 mL) 1 mg subcut WEEKLY 02/28/24 08/27/24 Unknown History subcutaneous pen injector (Ozempic) aspirin 81 mg tablet 81 mg PO DAILY 02/29/24 08/27/24 08/27/24 History cetirizine 10 mg capsule (Zyrtec) 10 mg PO DAILY PRN allergy symptoms 02/29/24 08/27/24 Unknown History cholecalciferol (vitamin D3) 25 25 mcg PO DAILY 02/29/24 08/27/24 08/27/24 History mcg (1,000 unit) capsule losartan 100 1 tablet PO DAILY 02/29/24 08/27/24 08/27/24 History mg-hydrochlorothiazide 25 mg tablet magnesium gluconate 27 mg 27 mg PO BID 02/29/24 08/27/24 08/27/24 History magnesium (500 mg) tablet (Mag-G) <Gay Chambers PA-C - Last Filed: 09/20/24 18:13> Allergies/adverse reactions: Allergies Allergy/AdvReac Type Severity Reaction Status Date / Time No Known Allergies Allergy Verified 08/27/24 14:21 <Gay Chambers PA-C - Last Filed: 09/20/24 18:13> Review of Systems 2 Review of Systems: All systems reviewed & are unremarkable except as noted in HPI and below <Gregorio Long MD - Last Filed: 09/18/24 01:37> PMFSH Past Medical History Medical History: Medical History Anxiety Intracranial meningioma Hyperlipemia Essential hypertension Type 2 diabetes mellitus <Gay Chambers PA-C - Last Filed: 09/20/24 18:13> Social History Social History: Social History Smoking packs per day: 1 Smoking cigarettes per day: 20.0 Smoking status: Current every day smoker <Gay Chambers PA-C - Last Filed: 09/20/24 18:13> Exam 2 Narrative: GENERAL: Well-developed, well-nourished, and in no acute distress. HEAD: Normocephalic, atraumatic. EYES: PERRLA and EOMI. NECK: Supple. No adenopathy or masses. No carotid bruits or JVD CHEST: Clear to auscultation. No respiratory distress. No wheezes rales or rhonchi HEART: Regular rate and rhythm. No murmur heard. Normal peripheral pulses. ABDOMEN: Soft, nontender, nondistended, normal active bowel sounds. RECTAL: Decreased rectal tone BACK: No midline spine tenderness to palpation, no step-off or crepitus. No overlying skin changes infection EXTREMITIES: Normal range of motion. No edema. SKIN: Warm, dry, no rash. NEURO: Alert and oriented x3. No focal deficit. Moving all 4 limbs spontaneously PSYCH: Normal mood and affect. <Gregorio Long MD - Last Filed: 09/18/24 01:37> Course Course Emergency Course: 01:04 - CBC demonstrates elevated white blood cell count of 16.5 at this time without an obvious cause. Chemistries demonstrate elevated BUN of 51, AST of 40 and CRP of 4.4. ESR 53. Urinalysis not concerning for urinary tract infection. X-ray of the abdomen demonstrated non specific nonobstructive bowel gas pattern. Lumbar spine CT demonstrates degenerative disc disease extending from L1-S1 with bulging and spinal canal stenosis at multiple levels, greatest at L3/L4. ( A broad-based disc protrusion with mass effect on the spinal canal and bilateral neural foramen. ) the patient's symptoms and exam are concerning for cauda equina. I discussed the patient with [facility] surgeon, Dr. Turner who recommends ED transfer. I discussed the patient with [facility] ED physician, Dr. Gerhard rock who accepts transfer. The patient is agreeable to the plan. <Gregorio Long MD - Last Filed: 09/18/24 01:37> Vital Signs Vital signs: Vital Signs Temperature 98.2 F 09/17/24 18:39 Pulse Rate 88 09/17/24 18:39 Respiratory Rate 16 09/17/24 18:39 Blood Pressure 124/66 09/17/24 18:39 Pulse Oximetry 94 09/17/24 18:39 Temperature 98.2 F 09/17/24 18:39 Pulse Rate 77 09/18/24 02:01 Respiratory Rate 19 09/18/24 02:01 Blood Pressure 110/74 09/18/24 02:01 Pulse Oximetry 93 09/18/24 02:02 Oxygen Delivery Nasal Cannula 09/18/24 02:02 Oxygen Flow Rate 2 09/18/24 02:02 <Gay Chambers PA-C - Last Filed: 09/20/24 18:13> Vital Signs Temperature 98.2 F 09/17/24 18:39 Pulse Rate 88 09/17/24 18:39 Respiratory Rate 16 09/17/24 18:39 Blood Pressure 124/66 09/17/24 18:39 Pulse Oximetry 94 09/17/24 18:39 Temperature 98.2 F 09/17/24 18:39 Pulse Rate 77 09/18/24 02:01 Respiratory Rate 19 09/18/24 02:01 Blood Pressure 110/74 04/09/25 02:01 Pulse Oximetry 93 09/18/24 02:02 Oxygen Delivery Nasal Cannula 09/18/24 02:02 Oxygen Flow Rate 2 09/18/24 02:02 <Gregorio Long MD - Last Filed: 09/18/24 01:37> Medical Decision Making MDM Narrative Medical decision making narrative: Plan: Labs, imaging, reassess <Gregorio Long MD - Last Filed: 09/18/24 01:37> Differential Diagnosis Differential Diagnosis: Cauda equina, spine fracture, mass, bulging disc, gastroenteritis, metabolic abnormality, UTI, other <Gregorio Long MD - Last Filed: 09/18/24 01:37> Vital Signs Vital Signs: Vital Signs Temperature 98.2 F 09/17/24 18:39 Pulse Rate 88 09/17/24 18:39 Respiratory Rate 16 09/17/24 18:39 Blood Pressure 124/66 09/17/24 18:39 Pulse Oximetry 94 09/17/24 18:39 Temperature 98.2 F 09/17/24 18:39 Pulse Rate 77 09/18/24 02:01 Respiratory Rate 19 09/18/24 02:01 Blood Pressure 110/74 09/18/24 02:01 Pulse Oximetry 93 09/18/24 02:02 Oxygen Delivery Nasal Cannula 09/18/24 02:02 Oxygen Flow Rate 2 09/18/24 02:02 <Gay Chambers PA-C - Last Filed: 09/20/24 18:13> Vital Signs Temperature 98.2 F 09/17/24 18:39 Pulse Rate 88 09/17/24 18:39 Respiratory Rate 16 09/17/24 18:39 Blood Pressure 124/66 09/17/24 18:39 Pulse Oximetry 94 09/17/24 18:39 Temperature 98.2 F 09/17/24 18:39 Pulse Rate 77 09/18/24 02:01 Respiratory Rate 19 09/18/24 02:01 Blood Pressure 110/74 09/18/24 02:01 Pulse Oximetry 93 09/18/24 02:02 Oxygen Delivery Nasal Cannula 09/18/24 02:02 Oxygen Flow Rate 2 09/18/24 02:02 <Gregorio Long MD - Last Filed: 09/18/24 01:37> Lab Data Result diagrams: 09/17/24 23:07 09/17/24 23:07 <Gay Chambers PA-C - Last Filed: 09/20/24 18:13> Labs: Lab Results 09/17/24 09/18/24 Range/Units 23:07 00:12 WBC 16.5 H (4.5-10.0) K/mm3 RBC 4.04 L (4.2-5.4) M/mm3 Hgb 12.4 (12.0-15.0) g/dL Hct 37.4 (37.0-47.0) % MCV 92.6 (80-100) fl MCH 30.7 (26-34) pg MCHC 33.2 (32-36) g/dl RDW 16.8 H (11.5-14.5) % Plt Count 250 (150-375) k/mm3 MPV 10.7 H (7.4-10.4) fl Immature Gran % (Auto) 0.2 (0-0.5) % Neut % (Auto) 89.6 H (45.5-73.1) % Lymph % (Auto) 4.3 L (18.3-44.2) % [place] % (Auto) 5.3 (2.6-8.5) % Eos % (Auto) 0.2 (0-4.4) % Baso % (Auto) 0.4 (0.2-1.2) % Lymph # (Auto) 0.70 L (0.9-3.2) K/mm3 [place] # (Auto) 0.9 H (0.1-0.6) K/mm3 Eos # (Auto) 0.0 (0-0.3) K/mm3 Baso # (Auto) 0.1 (0.0-0.1) K/mm3 Abs Immat Gran (auto) 0.04 H (0.00-0.031) K/mm3 Absolute Neuts (auto) 14.8 H (1.3-6.7) K/mm3 Absolute Nucleated RBC 0.000 (0.0-0.012) K/mm3 Band Neutrophils % 0 (0-6) % Nucleated RBC % 0.0 (0.0-0.2) % Platelet Estimate Adequate (Adequate) Anisocytosis 1+ Ovalocytes 1+ Schistocytes None seen ESR 53 H (0-20) mm/hr Sodium 136 L (137-145) mmol/L Potassium 4.3 (3.4-5.0) mmol/L Chloride 96 L (98-107) mmol/L Carbon Dioxide 27 (22-30) mmol/L Anion Gap 13 H (4-12) mmol/L BUN 51 H (7-17) mg/dL Creatinine 0.94 (0.7-1.0) mg/dL Estim Creat Clear Calc Not Reportable Estimated GFR 59 (59 - ) Glucose 103 (65-110) mg/dL Calcium 9.9 (8.4-10.2) mg/dL Total Bilirubin 0.9 (0.2-1.3) mg/dL AST 40 H (14-36) U/L ALT 19 (6-35) U/L Alkaline Phosphatase 143 H (38-126) U/L C-Reactive Protein 4.4 H (<1.0) mg/dL Total Protein 8.0 (6.3-8.2) g/dL Albumin 4.2 (3.5-5.1) g/dL Lipase 178 (23-300) U/L Urine Color Yellow (Yellow) Urine Appearance Clear (Clear) Urine pH 5.5 (5.0-9.0) Ur Specific [place] 1.018 (1.001-1.035) Urine Protein Negative (Negative) mg/dL Urine Glucose (UA) Negative (Negative) mg/dL Urine Ketones Trace H (Negative) mg/dL Ur Blood (Man) Negative (Negative) Urine Nitrate Negative (Negative) Urine Bilirubin Negative (Negative) Urine Urobilinogen 1.0 (<2.0) mg/dL Leukocyte Esterase Rfl Negative (Negative) KIYA/UL <Gay Chambers PA-C - Last Filed: 09/20/24 18:13> Lab Results 09/17/24 09/18/24 Range/Units 23:07 00:12 WBC 16.5 H (4.5-10.0) K/mm3 RBC 4.04 L (4.2-5.4) M/mm3 Hgb 12.4 (12.0-15.0) g/dL Hct 37.4 (37.0-47.0) % MCV 92.6 (80-100) fl MCH 30.7 (26-34) pg MCHC 33.2 (32-36) g/dl RDW 16.8 H (11.5-14.5) % Plt Count 250 (150-375) k/mm3 MPV 10.7 H (7.4-10.4) fl Immature Gran % (Auto) 0.2 (0-0.5) % Neut % (Auto) 89.6 H (45.5-73.1) % Lymph % (Auto) 4.3 L (18.3-44.2) % [place] % (Auto) 5.3 (2.6-8.5) % Eos % (Auto) 0.2 (0-4.4) % Baso % (Auto) 0.4 (0.2-1.2) % Lymph # (Auto) 0.70 L (0.9-3.2) K/mm3 [place] # (Auto) 0.9 H (0.1-0.6) K/mm3 Eos # (Auto) 0.0 (0-0.3) K/mm3 Baso # (Auto) 0.1 (0.0-0.1) K/mm3 Abs Immat Gran (auto) 0.04 H (0.00-0.031) K/mm3 Absolute Neuts (auto) 14.8 H (1.3-6.7) K/mm3 Absolute Nucleated RBC 0.000 (0.0-0.012) K/mm3 Band Neutrophils % 0 (0-6) % Nucleated RBC % 0.0 (0.0-0.2) % Platelet Estimate Adequate (Adequate) Anisocytosis 1+ Ovalocytes 1+ Schistocytes None seen ESR 53 H (0-20) mm/hr Sodium 136 L (137-145) mmol/L Potassium 4.3 (3.4-5.0) mmol/L Chloride 96 L (98-107) mmol/L Carbon Dioxide 27 (22-30) mmol/L Anion Gap 13 H (4-12) mmol/L BUN 51 H (7-17) mg/dL Creatinine 0.94 (0.7-1.0) mg/dL Estim Creat Clear Calc Not Reportable Estimated GFR 59 (59 - ) Glucose 103 (65-110) mg/dL Calcium 9.9 (8.4-10.2) mg/dL Total Bilirubin 0.9 (0.2-1.3) mg/dL AST 40 H (14-36) U/L ALT 19 (6-35) U/L Alkaline Phosphatase 143 H (38-126) U/L C-Reactive Protein 4.4 H (<1.0) mg/dL Total Protein 8.0 (6.3-8.2) g/dL Albumin 4.2 (3.5-5.1) g/dL Lipase 178 (23-300) U/L Urine Color Yellow (Yellow) Urine Appearance Clear (Clear) Urine pH 5.5 (5.0-9.0) Ur Specific [place] 1.018 (1.001-1.035) Urine Protein Negative (Negative) mg/dL Urine Glucose (UA) Negative (Negative) mg/dL Urine Ketones Trace H (Negative) mg/dL Ur Blood (Man) Negative (Negative) Urine Nitrate Negative (Negative) Urine Bilirubin Negative (Negative) Urine Urobilinogen 1.0 (<2.0) mg/dL Leukocyte Esterase Rfl Negative (Negative) KIYA/UL <Gregorio Long MD - Last Filed: 09/18/24 01:37> Imaging Data Radiologist's impression: ITS Impressions Abdomen X-Ray 09/17/24 19:38 IMPRESSION: Nonspecific, nonobstructive bowel gas pattern without air in the rectum. Lumbar Spine CT 09/17/24 23:56 Impression: Severe degenerative disease most significant at the level of L3/L4, as detailed above, without acute compression fracture. Additional findings suggesting fecal impaction, likely contributing to patient's presenting symptoms. Fibroid uterus. In addition, heterogeneous appearance of the bone marrow for which a systemic process is suspected. <Gay Chambers PA-C - Last Filed: 09/20/24 18:13> Critical Care Time Critical Care Time Critical Care Time: No <Gay Chambers PA-C - Last Filed: 09/20/24 18:13> Discharge Plan Discharge Clinical Impression: Cauda equina syndrome Bowel incontinence Qualifiers: Fecal incontinence type: unspecified Qualified Code(s): R15.9 - Full incontinence of feces Bladder incontinence Qualifiers: Urinary Incontinence type: unspecified incontinence Qualified Code(s): R32 - Unspecified urinary incontinence <Gay Chambers PA-C - Last Filed: 09/20/24 18:13> Patient Disposition: Acute Care Hospital <KWADWO Keith Last Filed: 09/20/24 18:13> Condition: Serious <Gay Chambers PA-C - Last Filed: 09/20/24 18:13> Patient Language: Tanzanian <Gay Chambers PA-C - Last Filed: 09/20/24 18:13> Prescriptions: No Action albuterol sulfate 90 mcg/actuation HFA aerosol inhaler 1 puff inhalation Q4H PRN (Reason: shortness of breath or wheezing) amlodipine 10 mg tablet 10 mg PO DAILY atorvastatin 20 mg tablet 20 mg PO DAILY baclofen 10 mg tablet 10 mg PO DAILY fluticasone furoate-vilanterol [Breo Ellipta] 100-25 mcg/dose blister with device 1 inh inhalation DAILY citalopram 10 mg tablet 10 mg PO DAILY fluticasone propionate 50 mcg/actuation spray,suspension 2 spray intranasal DAILY Rx Instructions: administer into each nostril furosemide 20 mg tablet 20 mg PO QAM gabapentin 300 mg capsule 300 mg PO DAILY metformin 500 mg tablet 500 mg PO BID montelukast 10 mg tablet 10 mg PO DAILY nabumetone 750 mg tablet 750 mg PO BID Ozempic 1 mg/dose (4 mg/3 mL) pen injector 1 mg subcut WEEKLY losartan-hydrochlorothiazide 100-25 mg tablet 1 tablet PO DAILY Zyrtec 10 mg capsule 10 mg PO DAILY PRN (Reason: allergy symptoms) aspirin 81 mg tablet 81 mg PO DAILY magnesium gluconate [Mag-G] 27 mg magnesium (500 mg) tablet 27 mg PO BID cholecalciferol (vitamin D3) 25 mcg (1,000 unit) capsule 25 mcg PO DAILY eszopiclone 2 mg tablet 2 mg PO ONCE Qty: 1 0RF Rx Instructions: Take tablet with you to sleep center for sleep study, if needed <KWADWO Keith Last Filed: 09/20/24 18:13> Follow-up/Referrals: Oscar,MD Eugene [Primary Care Provider] - <Gay Chambers PA-C - Last Filed: 09/20/24 18:13> Time of Disposition: 01:04 <Gay Chambers PA-C - Last Filed: 09/20/24 18:13> 01:04 <Gregorio Long MD - Last Filed: 09/18/24 01:37>
[2024-09-17 18:39] VITALS: BP 124/66; PULSE 88; RESP 16; TEMP 36.8; O2SAT 94
--- OUTSIDE RECORDS SUMMARY | 2024-09-17 22:03 | XMS_ITS | Referral Summary ---
Author Organization [facility] Address [address] [place] [address] Care Team Providers Care Windmill Technician Name Role Phone Eugene Moore MD Primary Care Provider + [phone] Allergies No known active allergies Medications aspirin [...] on file Legal Sex Female 4:40 AM FACIAL OPERATOR Gender Identity Not on file Sexual Orientation Not on file Last Filed Vital Signs Vital Sign Reading Time Taken Comments Blood Pressure 135/90 08/16/2018 10:43 AM FACIAL OPERATOR Pulse 78 08/16/2018 10:43 AM FACIAL OPERATOR Temperature - - Respiratory Rate - - Oxygen Saturation - - Inhaled Oxygen Concentration - - Weight 140.6 kg (310 lb) 08/16/2018 10:43 AM FACIAL OPERATOR Height 160 cm (5' 3 ) 08/16/2018 10:43 AM FACIAL OPERATOR Body Mass Index 54.91 08/16/2018 10:43 AM FACIAL OPERATOR Plan of Treatment Not on file Insurance MEDICARE [facility] [employer] [facility] MEDICARE [facility] Care Teams Windmill Technician Relationship Specialty Start Date End Date Eugene Moore MD PCP - General 09/08/16
--- OUTSIDE RECORDS SUMMARY | 2024-09-17 22:03 | XMS_ITS | CONTINUITY OF CARE DOCUMENT ---
Author Name faina eisenberg Address Unknown Organization [facility] Address [address] [address] [facility] [address] [place] [address] Phone [phone] Care Team Providers Care Hourly Manager Name Role Phone Antonio DIAS, Jm Jacob Unavailable [phone] KEYONA DIAS, MICHAEL Head Unavailable MICHAEL RAND MD Unavailable INSURANCE PROVIDERS Payer name Policy type / Coverage type [place] red alliance party ID [facility] [id number]
--- OUTSIDE RECORDS SUMMARY | 2024-09-17 22:04 | XMS_ITS | Continuity of Care Document ---
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 [address], [place], [place], [id number], [place]. tel:[phone] Referring Provider: [address], [place], [address]. tel:[phone] Family History Family Member Type Diagnosis Age At Onset No Information Payers Payer name Insurance type Covered alliance party ID Authoriza tion(s) BCBS INACTIVE OUT OF STATE [id number] Social History Type Description Quantity Date Captured [...]
--- OUTSIDE RECORDS SUMMARY | 2024-09-17 22:04 | XMS_ITS | Clinical Summary ---
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 Gender Identity Not on file Sexual Orientation Not on file Obstetrics History Last Filed Vital Signs Vital Sign Reading Time Taken Comments Blood Pressure 135/90 08/16/2018 10:43 AM RN [employer]Y Pulse 78 08/16/2018 10:43 AM RN [employer]Y Temperature - - Respiratory Rate - - Oxygen Saturation - - Inhaled Oxygen Concentration - - Weight 140.6 kg (310 lb) 08/16/2018 10:43 AM RN PRIVATE DUTY Height 160 cm (5' 3 ) 08/16/2018 10:43 AM RN PRIVATE DUTY Body Mass Index 54.91 08/16/2018 10:43 AM RN PRIVATE DUTY Plan of Treatment Health Maintenance Due Date [...] 03/21/2018, 03/14/2017, Additional history exists Insurance MEDICARE [facility] Address: [id number] [employer] [place] MEDICARE [employer] [facility] Care Teams Corporate Vp Advertising & Online Relationship Specialty Start Date End Date Eugene Moore MD PCP - General 09/08/16
[2024-09-17 23:09] VITALS: BP 151/90; PULSE 77; RESP 15; O2SAT 96
[2024-09-17 23:13] LABS: Basophils Absolute Auto 0.1 K/mm3 (0.0-0.1); Basophils Percent Auto 0.4 % (0.2-1.2); Eosinophils Percent Auto 0.2 % (0-4.4); Hematocrit 37.4 % (37.0-47.0); Hemoglobin 12.4 g/dL (12.0-15.0); Immature Granulocyte Absolute 0.04 K/mm3 (0.00-0.031); Immature Granulocyte Percent A 0.2 % (0-0.5); Lymphocytes Percent Auto 4.3 % (18.3-44.2); Mean Corpuscular HGB Conc 33.2 g/dl (32-36); Mean Corpuscular Hemoglobin 30.7 pg (26-34); Mean Corpuscular Volume 92.6 fl (80-100); Mean Platelet Volume 10.7 fl (7.4-10.4); Monocytes Absolute Auto 0.9 K/mm3 (0.1-0.6); Monocytes Percent Auto 5.3 % (2.6-8.5); Neutrophils Absolute Auto 14.8 K/mm3 (1.3-6.7); Neutrophils Percent Auto 89.6 % (45.5-73.1); Platelet Count Result 250 k/mm3 (150-375); Red Blood Count 4.04 M/mm3 (4.2-5.4); Red Cell Distribution Width 16.8 % (11.5-14.5); White Blood Count 16.5 K/mm3 (4.5-10.0)
--- NOTE | 2024-09-17 23:27 | PC.NURSE ---
This RN was able to get a clean urine sample. This RN stated to pt that we need another sample. pt verbalized understanding
[2024-09-17 23:32] LABS: CRP 4.4 mg/dL (<1.0)
[2024-09-17 23:34] LABS: Alanine Aminotransferase 19 U/L (6-35); Albumin Level 4.2 g/dL (3.5-5.1); Alkaline Phosphatase 143 U/L (38-126); Anion Gap 13 mmol/L (4-12); Aspartate Amino Transferase 40 U/L (14-36); Bilirubin,Total 0.9 mg/dL (0.2-1.3); Blood Urea Nitrogen 51 mg/dL (7-17); Calcium 9.9 mg/dL (8.4-10.2); Carbon Dioxide 27 mmol/L (22-30); Chloride 96 mmol/L (98-107); Estimated Glomerular Filt Rate 59; Glucose 103 mg/dL (65-110); Lipase 178 U/L (23-300); Potassium 4.3 mmol/L (3.4-5.0); Sodium 136 mmol/L (137-145)
[2024-09-17 23:36] LABS: Anisocytosis 1+; Band Neutrophils Percent 0 % (0-6); Ovalocytes 1+; Platelet Estimate Adequate (Adequate); Schistocytes None Seen
[2024-09-17 23:55] LABS: Erythrocyte Sedimentation Rate 53 mm/hr (0-20)
[2024-09-18 00:22] LABS: Add Urine Microscopic? NO; Appearance Urine Clear (Clear); Bilirubin Urine Negative (Negative); Blood Urine Negative (Negative); Color Urine Yellow (Yellow); Glucose Urine UA Negative (Negative); Ketones Urine Trace mg/dL (Negative); Leukocyte Esterase Ur Negative LEU/UL (Negative); Nitrate Urine Negative (Negative); Protein Urine Negative (Negative); Specific Grav Ur 1.018 (1.001-1.035); pH Urine 5.5 (5.0-9.0)
[2024-09-18 01:50] VITALS: BP 110/74; PULSE 93; RESP 16; O2SAT 93
[2024-09-18 02:01] VITALS: BP 110/74; PULSE 77; RESP 19; O2SAT 93
[2024-09-18 02:02] VITALS: O2SAT 93
[2024-09-18] MEDS: ACETAMINOPHEN 500 MG TABLET 1000 MG PO (02:26)
[2024-09-18] MEDS: GABAPENTIN 300 MG CAPSULE PO (02:32)
== END 2024-09-18 02:38 | disposition short-term general hospital (02) ==
PROVIDERS: Physician Assistant; Emergency Provider Preventive Medicine Aerospace Medicine; PCP Internal Medicine
DX: G83.4 Cauda equina syndrome (principal); R15.9 Full incontinence of feces; R32 Unspecified urinary incontinence; M51.369 Other intervertebral disc degeneration, lumbar region without mention of lumbar back pain or lower extremity pain; F41.9 Anxiety disorder, unspecified; I10 Essential (primary) hypertension; E11.9 Type 2 diabetes mellitus without complications; Z79.84 Long term (current) use of oral hypoglycemic drugs; F17.210 Nicotine dependence, cigarettes, uncomplicated
CPT/HCPCS: 36415; 72131; 74018; 80053; 81003; 83690; 85025; 85652; 86140; 99285; A9270